=== PATIENT | female | born 1955 | race Caucasian/White ===

== ENCOUNTER 2017-05-28 06:25 | Outpatient (CLI) ==
[2015-01-15 00:17] VITALS: BMI 35.1
--- NOTE | 2017-05-28 10:01 | DI ---
EXAM: Two views of the chest. History: Chronic obstructive pulmonary disease, asthma Comparison: None available. Findings: Heart is mildly enlarged. Patchy bilateral areas of subsegmental atelectasis or infiltrate . No appreciable pleural fluid and no pneumothorax. No acute osseous abnormalities. Impression: 1. Patchy bilateral areas of subsegmental atelectasis versus pneumonia. 2. Mild cardiomegaly
--- NOTE | 2017-05-29 13:24 | ECHO2D ---
Date of Exam: 05/28/17 Ordering Physician: DR. TAM BECKWITH Room #: OP Reason for Echo: COPD, SOB M-Mode Normal Adult Results LV Dimensions Normal Adult Results AoV Opening excursions >1.6 >1.6 LVEDD-base- 3.5-5.8 5.0 Ao root dimensions 2.0-3.7 3.2 LVESD-base- 3.1-4.6 L. Atrium dimensions 1.9-3.8 5.5 Post. Wall thickness 0.8-1.1 1.2 IV septum (thickness) 0.7-1.2 1.2 Post. Wall excursion 0.72-1.3 0.7 Septal motion 0.8 Systolic motion R. Ventricular cavity 1.5-2.0 NORMAL LVEF 60% 40% Paradoxical septal wall motion NORMAL 2-D : HYPOKINETIC LEFT VENTRICLE, VALVES --NORMAL, NO EFFUSION, NO THROMBUS, ENLARGED LEFT ATRIAL CAVITY M-MODE: MV: NORMAL AV: NORMAL TV: NORMAL PV: CHAMBER SIZE: ENLARGED LEFT ATRIAL CAVITY WALL MOTION: HYPOKINETIC LEFT VENTRICLE PERICARDIUM: NORMAL INTERPRETATION: 1. HYPOKINETIC LEFT VENTRICLE WITH EJECTION FRACTION 40% 2. BORDERLINE LEFT VENTRICULAR HYPERTROPHY 3. ENLARGED LEFT ATRIAL CAVITY (5.5 CM) MTDD
== END 2017-05-28 06:26 | disposition home or self-care (01) ==
LOC: CAR 06:25
PROVIDERS: ATTEND Internal Medicine
DX: R06.02 Shortness of breath (principal); J44.9 Chronic obstructive pulmonary disease, unspecified

== ENCOUNTER 2024-02-18 14:54 | Inpatient (IN) ==
[2024-02-18 15:27] VITALS: BMI 38.4
[2024-02-18] MEDS ORDERED: LASIX IVP SCH (15:39)
[2024-02-18 16:11] LABS: BASOPHILS % (AUTO) 0.4 % (0.0-3.0); EOSINOPHILS # (AUTO) 0.1 K/ul (0.0-0.7); EOSINOPHILS % (AUTO) 1.2 % (0.0-7.0); HEMATOCRIT 33.6 % (37.0-47.0); HEMOGLOBIN 10.5 g/dl (12.0-16.0); IMMATURE GRANULOCYTE # (AUTO) 0.1 (0.0-1.0); IMMATURE GRANULOCYTE % (AUTO) 0.8 % (0.0-5.0); LYMPHOCYTES # (AUTO) 0.5 K/uL (0.60-3.4); LYMPHOCYTES % (AUTO) 5.9 (10.0-50.0); MEAN CORPUSCULAR HEMOGLOBIN 32.5 pg (27.0-31.0); MEAN CORPUSCULAR HGB CONC 31.3 (31.8-35.4); MONOCYTES # (AUTO) 0.6 K/uL (0.4-2.0); MONOCYTES % (AUTO) 7.1 (0-10); NEUTROPHILS # (AUTO) 6.6 K/ul (2.0-6.9); NEUTROPHILS % (AUTO) 84.6 % (42.2-75.2); PLATELET COUNT 199 10^3/uL (140-440); RDW COEFFICIENT OF VARIATION 13.2 % (11.6-14.8); RED BLOOD COUNT 3.23 10^6/ul (4.20-5.40); WHITE BLOOD COUNT 7.79 K/ul (4.6-10.2)
[2024-02-18] MEDS ORDERED: NON-FORMULARY MEDICATION (Cetirizine [Allergy Relief (Cetirizine)] 10 mg tablet) PO PRN (16:19)
[2024-02-18 16:25] LABS: ALANINE AMINOTRANSFERASE 17.4 U/L (0-35); ALBUMIN 4.38 g/dL (3.5-5.0); ALKALINE PHOSPHATASE 62.3 U/L (53-141); ASPARTATE AMINO TRANSFERASE 30.3 U/L (14-36); BILIRUBIN,TOTAL 2.25 mg/dL (0.2-1.3); BLOOD UREA NITROGEN 16.2 mg/dL (7-17); CALCIUM 9.27 mg/dL (8.4-10.2); CARBON DIOXIDE 26.4 mmol/L (22-30.0); CHLORIDE 96.5 mmol/L (98-107); CREATININE 0.71 mg/dL (0.60-1.30); GLUCOSE 113.2 mg/dL (74-106); POTASSIUM 4.76 mmol/L (3.5-5.1); TOTAL PROTEIN 8.39 g/dL (6.3-8.2)
[2024-02-18] MEDS ORDERED: LANOXIN PO SCH (16:30)
[2024-02-18 16:32] LABS: PROTHROMBIN TIME 14.2 SEC (9.3-11.0)
[2024-02-18 16:38] LABS: ANISOCYTOSIS 1+ (NOT PRESENT); HYPOCHROMASIA 1+ (NOT PRESENT)
[2024-02-18] MEDS: DECADRON IM SCH (16:45)
[2024-02-18] MEDS: LASIX IVP SCH (16:45)
[2024-02-18] MEDS ORDERED: CLARITIN PO PRN (16:45)
--- NOTE | 2024-02-18 16:47 | DI ---
EXAM: CHEST TWO VIEW, FRONTAL AND LATERAL VIEWS. HISTORY: Dyspnea, chronic obstructive pulmonary disease. COMPARISON: 05/28/2017. FINDINGS: Heart is enlarged. Atherosclerotic calcifications present. Mild indistinctness of the ce ntral pulmonary vasculature appear there is consolidation in both lung bases with blunting of the cos tophrenic angles. Mild interstitial prominence otherwise. No pneumothorax detected. No acute osseo us abnormality is seen. IMPRESSION: Findings most suggestive of pulmonary edema. Pneumonia not excluded..
[2024-02-18] MEDS: ROCEPHIN 1 GM/50 ML D5W 1 GM/50 ML BAG IV SCH (16:54)
[2024-02-18] MEDS: NON-FORMULARY MEDICATION (Tiotropium Bromide [Spiriva Respimat] 1.25 mcg/actuation mist) IH SCH (17:18)
[2024-02-18] MEDS: CARDIZEM PO ONE (17:28)
[2024-02-18 17:30] LABS: BILIRUBIN,URINE Negative (NEGATIVE); CLARITY,URINE Clear (CLEAR); COLOR,URINE Yellow (YELLOW); GLUCOSE, URINE (UA) Negative (NEGATIVE); KETONES,URINE Negative (NEGATIVE); LEUKOCYTE ESTERASE ,URINE 1+ (NEGATIVE); NITRITE,URINE Negative (NEGATIVE); PH,URINE 5.5 (5-9); PROTEIN,URINE Negative (NEGATIVE); URINE, BLOOD Trace-intact (NEGATIVE); UROBILINOGEN,URINE 0.2 (0.2)
[2024-02-18] MEDS: COUMADIN PO SCH (17:32)
[2024-02-18 17:35] LABS: AMORPHOUS SEDIMENT,UR 1+ (NOT PRESENT); BACTERIA,URINE 1+ (NOT PRESENT)
[2024-02-18] MEDS: XANAX PO PRN (20:24)
[2024-02-18] MEDS: BETAPACE PO SCH (20:25)
[2024-02-19] MEDS: PROTONIX PO SCH (05:32)
[2024-02-19 05:38] LABS: BASOPHILS % (AUTO) 0.4 % (0.0-3.0); EOSINOPHILS % (AUTO) 0.2 % (0.0-7.0); HEMATOCRIT 34.4 % (37.0-47.0); HEMOGLOBIN 10.6 g/dl (12.0-16.0); IMMATURE GRANULOCYTE % (AUTO) 0.6 % (0.0-5.0); LYMPHOCYTES # (AUTO) 0.2 K/uL (0.60-3.4); LYMPHOCYTES % (AUTO) 4.5 (10.0-50.0); MEAN CORPUSCULAR HEMOGLOBIN 32.2 pg (27.0-31.0); MEAN CORPUSCULAR HGB CONC 30.8 (31.8-35.4); MEAN CORPUSCULAR VOLUME 104.6 fl (81.0-99.0); MONOCYTES # (AUTO) 0.1 K/uL (0.4-2.0); MONOCYTES % (AUTO) 2.7 (0-10); NEUTROPHILS # (AUTO) 4.7 K/ul (2.0-6.9); NEUTROPHILS % (AUTO) 91.6 % (42.2-75.2); PLATELET COUNT 214 10^3/uL (140-440); RDW COEFFICIENT OF VARIATION 13.1 % (11.6-14.8); RED BLOOD COUNT 3.29 10^6/ul (4.20-5.40); WHITE BLOOD COUNT 5.16 K/ul (4.6-10.2)
[2024-02-19 05:49] LABS: PROTHROMBIN TIME 13.3 SEC (9.3-11.0)
[2024-02-19 05:54] LABS: ALANINE AMINOTRANSFERASE 16.3 U/L (0-35); ALBUMIN 4.24 g/dL (3.5-5.0); ALKALINE PHOSPHATASE 57.6 U/L (53-141); ASPARTATE AMINO TRANSFERASE 24.2 U/L (14-36); BILIRUBIN,TOTAL 1.56 mg/dL (0.2-1.3); BLOOD UREA NITROGEN 17.6 mg/dL (7-17); CALCIUM 8.99 mg/dL (8.4-10.2); CARBON DIOXIDE 29.3 mmol/L (22-30.0); CHLORIDE 94.6 mmol/L (98-107); CREATININE 0.86 mg/dL (0.60-1.30); GLUCOSE 146.5 mg/dL (74-106); POTASSIUM 4.56 mmol/L (3.5-5.1); SODIUM 133.9 mmol/L (134.5-145); TOTAL PROTEIN 7.83 g/dL (6.3-8.2)
[2024-02-19] MEDS: DYAZIDE PO SCH (08:31)
[2024-02-19] MEDS: LANOXIN PO SCH (08:31)
[2024-02-19] MEDS: PHENERGAN WITH CODEINE 6.25/10 MG/5 ML PO PRN (08:34)
--- NOTE | 2024-02-19 09:40 | RS.PTINEVL ---
Subjective Patient information Date of Evaluation: 02/19/24 Date of Arrival on Unit: 02/18/24 Admitted From:: Home Diagnosis: AFib w RVR, BLE edema, falls Usual Living Arrangement: Alone Living Arrangement Comments: lives home alone with dog, has extended family that is supportive Home Environment: House, Stairs (few) (3 ) and Rail Medical History: Hypertension and COPD Medical History Comments:: DJD, alcohol abuse, anemia, LVH, metabolic syndrome LATEX ALLERGY?: No Medications: see chart Subjective Information/ Patient Comments:: pt states that she has had some falls at home. States that she has slipped on her laminate floors and has fallen getting in/out tub. Cousin Cruz in the room and she reports she has a walker and shower chair for pt to use when she goes home. 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 Current Level of Function: Partially Dependent Current Equipment Used at Home: N/A Interventions Objective Patient Orientation: Person, Place, Time and Situation Current Interventions: IV's, Oxygen (2 liters ) and Telemetry Observation: pt with pitting edema BLE Range of Motion ROM Right Upper Extremity AROM: WFL's Left Upper Extremity AROM: WFL's Right Lower Extremity AROM: WFL's Left Lower Extremity AROM: WFL's Muscle Strength Muscle Strength Right Upper Extremity: Mild Weakness (grossly 4/5) Left Upper Extremity: Mild Weakness (grossly 4/5) Right Lower Extremity: Mild Weakness (hip flex 4-/5, knee flex/ext 4/5, ankle DF/PF 4+/5) Left Lower Extremity: Mild Weakness (hip flex 4/5, knee flex/ext 4/5, ankle DF/PF 4+/5) Sensation Sensation Right Upper Extremity: Intact/Normal Left Upper Extremity: Intact/Normal Right Lower Extremity: Intact/Normal Left Lower Extremity: Intact/Normal Palpation Palpation Findings: Tenderness (BLE) Balance Sitting Balance and Reactions Static Sitting Balance: Good Dynamic Sitting Balance: Good Standing Balance and Reactions Static Standing Balance: Fair (fair-) Dynamic Standing Balance: Poor Functional Mobility Bed Mobility Comments:: pt sitting up in chair Transfers Sit to Stand: CGA Stand to Sit: CGA Safety Awareness Safety Awareness: Fair JOVANA INDEX SCORE: n/a Ambulation Ambulation Assistive Device Used: Rolling Walker Orthotic/Prosthetic Device: No Distance: 50ft Assistance needed with Ambulation: CGA and 1 person assist Quality of Ambulation: pt amb with O2 2 liters Gait Deviations: Wide Based gait, Forward posture and Short stride Ambulation Comments: pt requires cues for walker placement. Factors Affecting Ambulation: Decreased Balance, Breathing/O2 Saturation, Weakness, Decreased Safety and Limited Endurance Treatment time Units charged Gait trainin Time with patient Length of Evaluation: 18 Total treatment time: 31 Patient Education Education Patient Education: Activity Modification and Education of Plan of Care Teaching Recipient: Patient and Family Teaching Methods: Discussion Comments: Discussion with pt regarding POC as well as calling for help when getting up. Advised pt that due to her hx of falls and weakness we did not want her to get up on her own. Assessment Assessment Problem List:: Decreased level of function, Requires training/education, Decreased safety/Risk of falls and Weakness Rehab Potential: Good Further Therapy Indicated?: Yes Candidate for Swing Bed for Therapy Services?: pt may be too high level for swing bed for therapy. Evaluation Complexity: HISTORY: Medium, EXAM OF BODY SYSTEMS: Medium, CLINICAL PRESENTATION: Medium and CLINICAL DECISION MAKING: Medium Patient's Goal(s): Return home and get stronger Short Term Goals GOAL #1: pt demonstrate rolling and scooting to edge of bed independently. Goal to be met by: 02/21/24 GOAL #2: Transfer sup to/from sit SBA Goal to be met by: 02/21/24 GOAL #3: Transfer sit to/from stand SBA Goal to be met by: 02/21/24 GOAL #4: pt amb 100ft with rwx with O2 CGA no LOB Goal to be met by: 02/21/24 GOAL #5: Improve BLE strength 4+/5 Goal to be met by: 02/21/24 Long-Term Goals GOAL #1: Transfer sup to/from sit to/from stand independently Goal to be met by: 02/23/24 GOAL #2: pt amb with rwx functional household distances SBA to independent. Goal to be met by: 02/23/24 GOAL #3: Ascend/descend 3 steps w HR CGA Goal to be met by: 02/23/24 Plan Plan of Care: Therapeutic EX and Therapeutic Activity Other:: gait training Frequency of Treatment: 1-2 X day, as tolerated Duration of Treatment: 4 days Anticipated Discharge Destination: Home Treatment Diagnosis (ICD 10 Codes): impaired balance R 26.81 gait difficulty R26.2 weakness M62.81 Has the Physician been added for Co-signature?: Yes
--- NOTE | 2024-02-19 09:48 | HP ---
DATE OF SERVICE: 02/18/24 REASON FOR HOSPITALIZATION/HISTORY OF PRESENT ILLNESS: Shortness of breath, legs swollen, very weak and hard to walk. PAST MEDICAL HISTORY: Anemia B12 deficiency Chronic anticoagulation(Coumadin) DJD Spine LVH Obesity Asthma-Dr. See Hyperglycemia COPD Metabolic syndrome Dyslipidemia Atrial fibrillation Hypertension REVIEW OF SYSTEMS: CONSTITUTIONAL: No fever, Fatigue. HEENT: No sinus drainage, no sore throat. RESPIRATORY: Cough, no congestion. CARDIOVASCULAR: No atypical chest pain for coronary artery disease. No angina, palpitations. Shortness of breath. CHF Symptoms-orthopnea. GASTROINTESTINAL: No melena or abdominal pain. No GERD. GENITOURINARY: No hematuria, no prostatism, no polyuria. MEDICAL EDUCATION SPECIALIST: No blackout, no dizziness, no headache, no double vision. GAIT: Unsteady. MUSCULOSKELETAL: No osteoarthritis pain, no joint swelling. ENDOCRINE: No weight loss, Weight gain. SKIN: Not dry, no rash. PSYCHIATRIC: Not anxious, no depression, no suicidal thoughts, no homicidal thoughts. SOCIAL HISTORY: Marital Status: . Alcohol Usage: No. Tobacco Usage: No. Children: 1. Occupation: Retired. FAMILY HISTORY: Father Mother -[place] MEDICATIONS: Albuterol Alprazolam 0.5mg PO twice daily Cetirizine 10mg PO daily Digoxin 125mcg PO daily Fluticasone one inhalation every 24 hours Montelukast 10mg PO daily Pantoprazole 40mg PO daily Promethazine 6.25mg-codeine 10mg/5ML syrup 5ml orally every 4-6 hours as needed for cough Sotalol 80mg PO twice daily Tezepelumab-ekko 210mg/1.91ml 210mg subcutaneously every 4 weeks Tiotropium bromide 1.25mcg two puffs inhaled every 24 hours Triamterene 37.5-hydrochlorothiazide 25mg PO daily every morning Warfarin 5mg PO daily as directed. ALLERGIES: Ampicillin Emycin Pravachol PHYSICAL EXAMINATION: V/S: Pulse 130, blood pressure 132/80, temperature 98%, O2 saturation 94%. GENERAL APPEARANCE: Oriented times three. Pallor. Dry mucous membranes HEENT: Normal. NECK: No JVP, no bruits. RESPIRATORY: Decreased breath sounds. Creps at bases bilateral. CARDIOVASCULAR: S1, S2, no S3, Irregular and tachy. No cyanosis, clubbing. No ascites. I/IV murmur. GI/ABDOMEN: No tenderness. Bowel sounds are active. EXTREMITIES: +2 bilateral lower extremity edema, pulses +1, equal. MEDICAL EDUCATION SPECIALIST: Deep tendon reflexes, sensory, motor and gait all normal. ASSESSMENT: 1. Shortness of breath 2. Leg edema 3. Uncontrolled atrial fibrillation 4. Anemia 5. B12 deficiency 6. Chronic anticoagulation(Coumadin) 7. DJD Spine 8. LVH 9. Obesity 10.Asthma-Dr. See 11.Hyperglycemia 12.COPD 13.Metabolic syndrome 14.Dyslipidemia 15.Atrial fibrillation 16.Hypertension PLAN: 1. Routine telemetry orders 2. CBC and CMP now and daily 3. INR now and daily 4. BNP now 5. Daily weights 6. I/O monitoring 7. O2 PRN via nasal canula 8. 2D echo 9. Lasix 40mg IV daily times two days 10.U/A 11.4mg Decadron IM today and tomorrow 12. Rocephin 1gram IV daily TIME SPENT: More than 75 minutes. MTDD
[2024-02-19] MEDS: COUMADIN PO ONE (16:43)
[2024-02-19] MEDS: SINGULAIR PO SCH (16:46)
[2024-02-19] MEDS: NON-FORMULARY MEDICATION (Albuterol-Budesonide [Airsupra] 90-80 mcg/actuation HFA aerosol IH PRN (16:58)
[2024-02-20 05:42] LABS: BASOPHILS % (AUTO) 0.3 % (0.0-3.0); EOSINOPHILS # (AUTO) 0.1 K/ul (0.0-0.7); EOSINOPHILS % (AUTO) 1.2 % (0.0-7.0); HEMATOCRIT 32.1 % (37.0-47.0); HEMOGLOBIN 9.9 g/dl (12.0-16.0); IMMATURE GRANULOCYTE # (AUTO) 0.1 (0.0-1.0); IMMATURE GRANULOCYTE % (AUTO) 0.9 % (0.0-5.0); LYMPHOCYTES # (AUTO) 0.3 K/uL (0.60-3.4); LYMPHOCYTES % (AUTO) 3.5 (10.0-50.0); MEAN CORPUSCULAR HEMOGLOBIN 32.4 pg (27.0-31.0); MEAN CORPUSCULAR HGB CONC 30.8 (31.8-35.4); MEAN CORPUSCULAR VOLUME 104.9 fl (81.0-99.0); MONOCYTES # (AUTO) 0.6 K/uL (0.4-2.0); MONOCYTES % (AUTO) 7.6 (0-10); NEUTROPHILS # (AUTO) 6.4 K/ul (2.0-6.9); NEUTROPHILS % (AUTO) 86.5 % (42.2-75.2); PLATELET COUNT 203 10^3/uL (140-440); RDW COEFFICIENT OF VARIATION 13.2 % (11.6-14.8); RED BLOOD COUNT 3.06 10^6/ul (4.20-5.40)
[2024-02-20] MEDS: LASIX IVP SCH (05:54)
[2024-02-20 06:05] LABS: ALBUMIN 3.93 g/dL (3.5-5.0); ALKALINE PHOSPHATASE 51.2 U/L (53-141); ASPARTATE AMINO TRANSFERASE 21.3 U/L (14-36); BILIRUBIN,TOTAL 0.91 mg/dL (0.2-1.3); BLOOD UREA NITROGEN 27.9 mg/dL (7-17); CALCIUM 8.76 mg/dL (8.4-10.2); CARBON DIOXIDE 29.1 mmol/L (22-30.0); CHLORIDE 94.1 mmol/L (98-107); CREATININE 1.14 mg/dL (0.60-1.30); GLUCOSE 145.7 mg/dL (74-106); POTASSIUM 4.37 mmol/L (3.5-5.1); SODIUM 133.5 mmol/L (134.5-145); TOTAL PROTEIN 7.32 g/dL (6.3-8.2)
[2024-02-20] MEDS: COUMADIN PO ONE ×2 (13:13→17:07)
[2024-02-20] MEDS ORDERED: COUMADIN PO ONE (17:00)
[2024-02-20] MEDS: COUMADIN PO SCH (17:07)
[2024-02-21 05:14] VITALS: BP 128/71; RESP 18; TEMP 97.9
[2024-02-21] MEDS: OMNICEF PO SCH (08:26)
[2024-02-21 08:27] VITALS: PULSE 73
--- NOTE | 2024-02-22 10:10 | ECHO2D ---
Date of Exam: 02/19/2024 Ordering Physician: DR. TAM BECKWITH Room #: 120 Reason for Echo: CHF, SOB, HTN, LVH, A-FIB, DYSLIPIDEMIA, COPD, ASTHMA, ANEMIA, EDEMA M-Mode Normal Adult Results LV Dimensions Normal Adult Results AoV Opening excursions >1.6 >1.6 LVEDD-base- 3.5-5.8 5.4 Ao root dimensions 2.0-3.7 2.9 LVESD-base- 3.1-4.6 L. Atrium dimensions 1.9-3.8 6.5 Post. Wall thickness 0.8-1.1 1.4 IV septum (thickness) 0.7-1.2 1.4 Post. Wall excursion 0.72-1.3 NORMAL Septal motion 0.8 Systolic motion R. Ventricular cavity 1.5-2.0 NORMAL LVEF 60% 52% Paradoxical septal wall motion NORMAL 2-D : 2-D M Mode Echocardiogram was performed using apical four chamber and left parasternal long and short axis views. Mitral, tricuspid and aortic valves appear to be normal. Contractility of the left ventricle seems to be normal, so is the cavity size. Enlarged Left atrial cavity size. Aortic root appears to be normal. There is no pericardial effusion. There is no thrombus noted in the left ventricle or left atrial cavity. M-MODE: MV: NORMAL AV: NORMAL TV: NORMAL PV: CHAMBER SIZE: ENLARGED LEFT ATRIAL CAVITY WALL MOTION: NORMAL PERICARDIUM: NORMAL INTERPRETATION: 1. LEFT VENTRICLE HYPERTROPHY WITH STIFF LEFT VENTRICLE 2. MARKEDLY ENLARGED LEFT ATRIAL CAVITY--NO THROMBUS 3. NEAR NORMAL LEFT VENTRICLE EJECTION FRACTION--52% 4. VALVES--NORMAL MTDD
--- NOTE | 2024-02-22 14:23 | PN ---
DATE OF SERVICE: 02/19/24 REASON FOR HOSPITALIZATION: Weight gain with fluid overload with congestive heart failure and shortness of breath and inability to walk. SUBJECTIVE: This morning the patient is feeling a lot better. She is able to talk without stopping. She says that her appetite seems to have improved. She is able to walk now according to her. REVIEW OF SYSTEMS: CONSTITUTIONAL: No night sweats. No fatigue, malaise, lethargy. No fever or chills. The patient rested very well according to her. HEENT: Eyes: No visual changes. No eye pain. No eye discharge. ENT: No runny nose. No epistaxis. No sinus pain. No sore throat. No odynophagia. No congestion. RESPIRATORY: No cough, no congestion. No hemoptysis. Shortness of breath on exertion. CARDIOVASCULAR: No angina symptoms. No CHF symptoms. No atypical chest pain for CAD. No palpitations. No PND. No orthopnea. GASTROINTESTINAL: No abdominal pain. No nausea or vomiting. No diarrhea or constipation. No hematemesis. No hematochezia. GENITOURINARY: No urgency. No frequency. No dysuria. No hematuria. No obstructive symptoms. No discharge. No pain. No significant abnormal bleeding.Appetite seems to have improved. Breathing is a lot better. MUSCULOSKELETAL: No musculoskeletal pain; no joint swelling. NEUROLOGICAL: No headache. No neck pain. No syncope. No seizures. No dizziness. PSYCHIATRIC: Not anxious. No depression. No suicidal thoughts. No homicidal thoughts. SKIN: No rash. No lesions. No wounds. ENDOCRINE: No unexplained weight loss. No weight gain. HEMATOLOGIC/LYMPHATIC: No anemia. No purpura. No petechiae. No prolonged or excessive bleeding. No palpable lymph nodes. PHYSICAL EXAMINATION: GENERAL: The patient is oriented to time, place and person. VITAL SIGNS: Temperature 97, pulse 75, respiratory rate 16, blood pressure 123/65 and pulse ox 98% on room air. HEENT: Head normocephalic, atraumatic. Eyes: Extraocular muscles are intact. Pupils are equal, round and reactive to light and accommodation. Ears: No lesions. Nose appeared normal. Throat: No exudate or erythema. NECK: Supple. No JVD, no carotid bruit. No lymphadenopathy or thyromegaly. LUNGS: Few crepitation at the bases. Good air entry. Clear to auscultation. Percussion note normal. Chest symmetrical. HEART: S1, S2, no S3. No murmurs. The rate is 90 per minute. No cyanosis or clubbing. No ascites. Pulses: Dorsalis pedis and posterior tibial pulses +1 to +2 bilaterally. ABDOMEN: Soft. Nontender. Bowel sounds active. No CVA tenderness. No mass felt. EXTREMITIES: +3 almost +4 pitting edema. Full range of motion of all extremities, equal. The patient was slightly packed with both calf muscles able to put little dent with the pressure on both lower extremity. NEUROLOGIC: No focal deficit. Cranial nerves II through XII are grossly intact. No headache. No double vision. SKIN: Not dry. Intact. Turgor - normal. LYMPHATIC: No palpable lymph nodes/no lymphedema. MUSCULOSKELETAL: Normal joints with no swelling. Muscle tone is normal. LABS: Hgb 10.6, hct 34, WBC 5,100 normal differential, creatinine 0.8, BUN 17, potassium 4.5. INR 1.4, PRO BNP 2,830 yesterday. Obviously the patient has lost a lot of weight but as expected the patient weighs the same. ASSESSMENT: 1. Congestive heart failure/ Pulmonary edema seems to have resolved , clinically 2. Excessive fluid retention seems to be subsiding 3. Atrial fibrillation with now normal ventricular response at right 4. Severe bronchial asthma followed park interpretive specialist 5. Hypertension 6. Morbid obesity 7. Hyperglycemia 8. Anxiety Syndrome. PLAN: 1. Extra dose of Coumadin 5mg, get an INR of 2 2. Continue to elevate the legs 3. Continue IV Lasix 4. PRO BNP tomorrow 5. Give an extra dose of Lanoxin today 0.125mg 6. Daily CBC and CMP 7. Education about CHF carried to the patient 8. Advised to cut down on salt intake 9. Advised to keep the legs up at night, now one for lifetime. 10.Advised to continue to take her medication regularly. Few weeks ago the patient was seen with the leg swelling, on Lasix but she had not taken it because she is incontinent of urine so she stopped taking all her water pills. 11.Education carried out about CHF in detail. PROGNOSIS: Guarded. TIME SPENT: More than 35 minutes. Plan and coordination of the patient's care discussed in the presence of nurse. STAN
--- NOTE | 2024-02-29 08:31 | DS ---
DATE OF SERVICE: 02/21/24 FINAL DIAGNOSIS: 1. Congestive heart failure with pulmonary edema 2. Atrial fibrillation with rapid ventricular response 3. Acute bronchitis 4. Severe chronic lung disease with severe bronchial asthma 5. Hypertension 6. Morbid obesity 7. Chronic anemia 8. Generalized anxiety 9. Noncompliance MEDICATIONS AT DISCHARGE: Lasix 40mg PO daily K-Tab 20meq PO daily Continue Coumadin 5mg PO daily as before Digoxin 0.125mg PO as before Sotalol 80mg PO twice a day Pantoprazole 40mg PO QAM Continue Inhalers PO as before Spiriva Respimat inhaler as before Tezspire 210mg SUBCUT four weekly by license and permit specialist Xanax 0.5mg as needed BID PRN Omnicef 300mg PO BID for five days #14 Montelukast 10mg as before Loratadine 10mg PO PRN Airsupra inhaler as instructed DISCONTINUED MEDICATIONS: Discontinue Dyazide LABS: Hgb 9.9, hct 32, WBC 7,400 normal differential, creatinine 1.1, BUN 27, potassium 4.3, INR 1.47 on 02/20/24 at that time the patient was given extra dose of Coumadin, PRO BNP on 02/18/24 2,830 and repeat was ordered. Digoxin level was low and was given extra dose of Lanoxin while she was in the hospital to control the ventricular rate so an extra dose was given. Extra dose of Coumadin was given to increase the INR up to 2 to 2.5. HOSPITAL COURSE: 68 year old white female was hospitalized with congestive heart failure and pulmonary edema, asthma with bronchitis type of symptoms for a few weeks. The patient is noncompliant. Had a long discussion and agreed to be admitted. She was given IV Lasix and legs were elevated. Rate was controlled with extra dose of Lanoxin and dose of Cardizem. The patient' condition improved overnight and lost a lot of fluids. She was able to walk, talk and eat. Overall condition improved to the point where now she is willing to go through physical therapy. Taking a lot of interest in her overall health care. Medications were changed; Dyazide was discontinued. She was given Lasix and Potassium. Advised to elevate the legs at night time for lifetime when she goes to sleep. Advised to cut down on salt into. Education about CHF carried out. Advised to take all her medication on regular basis. Any weight gain of more than 2-3 pounds advised to take an extra dose of Lasix. Advised to followup with . Echo showed fraction of 50%, Stiff left ventricle, LVH, markedly enlarged LA cavity noted with no thrombus or thrombi at the valvular structures were normal. Systolic blood pressure during the stay in the hospital was noted to be 90-110 depending upon her systolic blood pressure. Other decision would be made regarding unloading agents or medication like Entresto and for weight loss discussed. The patient is convinced that losing 50-20 pounds would help her a lot in order to take care of her lung problems besides her mobility. She has agreed for physical therapy. CONDITION: Stable 02/18/24: Extensive 02/19/24: Extensive 02/20/24: Extensive 02/21/24: Discharge Extensive. ADDENDUM: Discharge medications: Zaroxolyn 2.5mg one a day for three days starting tomorrow. The patient's labs were not drawn on the day of discharge. The patient was advised to restrict the fluid intake. The patient is going to see Nurse Practitioner on on followup. Meantime if any problems go to the emergency room. TIME SPENT: 70 minutes STAN
--- NOTE | 2024-02-29 08:57 | PN ---
DATE OF SERVICE: 02/21/24 DISCHARGE NOTE SUBJECTIVE: 68 year old white female hospitalized with congestive heart failure, pulmonary edema, massive fluid retention, shortness of breath, difficulty to walk and talk, eat. The patient was seen in the office and had declined to go to the emergency room. The patient declined to go to any other hospital, declared to [facility] only if I put her in the hospital under me. REVIEW OF SYSTEMS: CONSTITUTIONAL: No night sweats. No fatigue, malaise, lethargy. No fever or chills. HEENT: Eyes: No visual changes. No eye pain. No eye discharge. ENT: No runny nose. No epistaxis. No sinus pain. No sore throat. No odynophagia. No congestion. RESPIRATORY: No cough, no congestion. No hemoptysis. Less shortness of breath. Able to walk now on her own. Able to talk CARDIOVASCULAR: No angina symptoms. No CHF symptoms. No atypical chest pain for CAD. No palpitations. No PND. No orthopnea. GASTROINTESTINAL: No abdominal pain. No nausea or vomiting. No diarrhea or constipation. No hematemesis. No hematochezia. GENITOURINARY: No urgency. No frequency. No dysuria. No hematuria. No obstructive symptoms. No discharge. No pain. No significant abnormal bleeding. MUSCULOSKELETAL: No musculoskeletal pain; no joint swelling. NEUROLOGICAL: No headache. No neck pain. No syncope. No seizures. No dizziness. PSYCHIATRIC: Not anxious. No depression. No suicidal thoughts. No homicidal thoughts. SKIN: No rash. No lesions. No wounds. ENDOCRINE: No unexplained weight loss. No weight gain. HEMATOLOGIC/LYMPHATIC: No anemia. No purpura. No petechiae. No prolonged or excessive bleeding. No palpable lymph nodes. PHYSICAL EXAMINATION: GENERAL: The patient is oriented to time, place and person. VITAL SIGNS: Temperature 98, pulse 80, respiratory rate 15, blood pressure 110/70, pulse ox 98% on room air. HEENT: Head normocephalic, atraumatic. Eyes: Extraocular muscles are intact. Pupils are equal, round and reactive to light and accommodation. Ears: No lesions. Nose appeared normal. Throat: No exudate or erythema. NECK: Supple. No JVD, no carotid bruit. No lymphadenopathy or thyromegaly. LUNGS: Decreased breath sounds, good air entry. Clear to auscultation. Percussion note normal. Chest symmetrical. HEART: S1, S2, no S3. 80 per minute. Atypical rate. No murmurs. No cyanosis or clubbing. No ascites. Pulses: Dorsalis pedis and posterior tibial pulses +1 to +2 bilaterally. ABDOMEN: Soft. Nontender. Bowel sounds active. No CVA tenderness. No mass felt. EXTREMITIES: +3 pitting edema fluid. When the patient was admitted we were unable to put a dent on the leg edema. It was that skin feels soft with +3 pitting edema. Full range of motion of all extremities, equal. NEUROLOGIC: No focal deficit. Cranial nerves II through XII are grossly intact. No headache. No double vision. SKIN: Not dry. Intact. Turgor - normal. LYMPHATIC: No palpable lymph nodes/no lymphedema. MUSCULOSKELETAL: Normal joints with no swelling. Muscle tone is normal. ASSESSMENT: 1. CHF seems to have clinically resolved, massive leg edema seems to have subsided 2. Atrial fibrillation with rapid ventricular response seems to have control 3. Asthmatic bronchitis under control PLAN: 1. Discontinue Decadron before discharge 2. We will put the patient on Lasix 40mg PO QAM 3. K-Tab 10/20meq PO daily 4. Advised to elevate the legs 5. Advised to continue the medication as before, Don't take Dyazide anymore 6. Continue Omnicef for 5 or more days. 7. Advised to cut down on salt intake 8. Education about CHF carried out 9. We will see her back in 5 days. TIME SPENT: More than 35 minutes. Plan and coordination of the patient's care discussed in the presence of nurse. STAN
--- NOTE | 2024-02-29 09:29 | PN ---
DATE OF SERVICE: 02/20/24 SUBJECTIVE: 68 year old white female hospitalized with congestive heart failure with pulmonary edema and massive fluid retention. The patient's condition has improved a lot. She is feeling a lot better, now able to walk and now she wants to go and do physical therapy. She is motivated. REVIEW OF SYSTEMS: CONSTITUTIONAL: No night sweats. No fatigue, malaise, lethargy. No fever or chills. HEENT: Eyes: No visual changes. No eye pain. No eye discharge. ENT: No runny nose. No epistaxis. No sinus pain. No sore throat. No odynophagia. No congestion. RESPIRATORY: No cough, no congestion. No hemoptysis. No shortness of breath. Talking without any problems. CARDIOVASCULAR: No angina symptoms. No CHF symptoms. No atypical chest pain for CAD. No palpitations. No PND. No orthopnea. GASTROINTESTINAL: No abdominal pain. No nausea or vomiting. No diarrhea or constipation. No hematemesis. No hematochezia. GENITOURINARY: No urgency. No frequency. No dysuria. No hematuria. No obstructive symptoms. No discharge. No pain. No significant abnormal bleeding. MUSCULOSKELETAL: No musculoskeletal pain; no joint swelling. Walking, she is sitting up at present time eating her breakfast. NEUROLOGICAL: No headache. No neck pain. No syncope. No seizures. No dizziness. PSYCHIATRIC: Not anxious. No depression. No suicidal thoughts. No homicidal thoughts. SKIN: No rash. No lesions. No wounds. ENDOCRINE: No unexplained weight loss. No weight gain. Appetite has improved. HEMATOLOGIC/LYMPHATIC: No anemia. No purpura. No petechiae. No prolonged or excessive bleeding. No palpable lymph nodes. PHYSICAL EXAMINATION: GENERAL: The patient is oriented to time, place and person. VITAL SIGNS: Temperature 97.1, pulse 78, respiratory rate 18, blood pressure 102/57 and pulse ox 98% on room air. HEENT: Head normocephalic, atraumatic. Eyes: Extraocular muscles are intact. Pupils are equal, round and reactive to light and accommodation. Ears: No lesions. Nose appeared normal. Throat: No exudate or erythema. NECK: Supple. No JVD, no carotid bruit. No lymphadenopathy or thyromegaly. LUNGS: Good air entry. Very few crepitations. Clear to auscultation. Percussion note normal. Chest symmetrical. HEART: S1, S2, no S3. No murmurs. Rate is 75 per minute. No cyanosis or clubbing. No ascites. Pulses: Dorsalis pedis and posterior tibial pulses +1 to +2 bilaterally. ABDOMEN: Soft. Nontender. Bowel sounds active. No CVA tenderness. No mass felt. EXTREMITIES: +3 pitting edema. Full range of motion of all extremities, equal. The patient's swelling of the legs is much less than what is was before. NEUROLOGIC: No focal deficit. Cranial nerves II through XII are grossly intact. No headache. No double vision. SKIN: Not dry. Intact. Turgor - normal. LYMPHATIC: No palpable lymph nodes/no lymphedema. MUSCULOSKELETAL: Normal joints with no swelling. Muscle tone is normal. LABS: Hgb 9.9, hct 32, WBC 7,400 normal differential, creatinine 1.1, BUN 27, potassium 4.3 was 1.3 yesterday given 1.47 today. ASSESSMENT: 1. CHF seems to be resolving 2. Fluid retention resolved 3. Atrial fibrillation with normal ventricular response 4. Bronchial asthma seems to be stable 5. Bronchitis, mild which is being treated with Rocephin and now with Omnicef 6. INR is 1.47 will give extra dose of 5mg Coumadin 7. Advised to continue all her medications as before, we may have to add Lasix and Potassium. She was explained about this. 8. The patient's echocardiogram was done which showed LVH with stiff left ventricle, normal LV size, ejection fraction 50%. Markedly enlarged LA cavity. No thrombus or thrombi noted. Valves normal PLAN: 1. Lasix and Potassium supplements may need unloading agent depending upon the patient's systolic blood pressure. We will add unloading agent if needed 2. Entresto maybe another choice but at present time the main goal is to get rid of as much fluid as we could. 3. The patient advised about the diet and advised about the CHF. The patient has severe bronchial asthma with chronic lung disease CONDITION: Stable. TIME SPENT: More than 35 minutes. Plan and coordination of the patient's care discussed in the presence of nurse. STAN
== END 2024-02-21 14:29 | disposition home or self-care (01) | DRG 189 ==
LOC: MEDSURG B 14:54
PROVIDERS: ADMIT Internal Medicine; ATTEND Internal Medicine

== ENCOUNTER 2025-01-17 15:01 | Inpatient (IN) ==
--- NOTE | 2025-01-17 16:38 | ED.PDOC ---
General [facility] ED Provider: Dr. ANAHI KELLER MD Chief Complaint: Weakness Stated Complaint: Patient is a 69-year-old female that was sent over from her primary care office for weakness. Per her primary care nurse practitioner the patient could not get out of her car to even come in to her appointment at the primary care office. She stated that she has been like this for several days. The primary care provider escorted the patient over here and stated that the patient appeared to be dehydrated. She stated that she does have a history of CHF and recently had an echo. Looking back at the patient's echo it appears patient's EF is 52%. Patient also is known to have lower extremity edema due to fluid overload as she does not take her Lasix as prescribed at times. Patient denies any chest pain, shortness of breath, nausea, vomiting, diarrhea, dizziness, syncope, or any other acute symptoms at the current time. Patient vital signs are stable. Patient's GCS is 15. Time Seen by Provider: 01/17/25 15:03 Mode of Arrival: Wheelchair Information Source: Patient and Nurse (Patient's primary care provider - nurse practitioner) Exam Limitations: No limitations Primary Care Provider: ANNA CRANE APRN Nursing and Triage Documentation Reviewed and Agree: Yes Opioid Naive vs. Tolerant What is Opioid Naive?: *Opioid Naive implies the patient is not already taking opioids or not chronically receiving opioids on a daily basis. *PRN dosing is not "usually" associated with tolerance. *Patients are at higher risk of over-sedation and aspiration. What is Opioid Tolerant?: *Opioid Tolerance implies less than the expected response to an opioid. *Acquired tolerance is defined by the patient taking 60mg of oral morphine daily (or equianalgesic dose of another opioid) for 1 week or more. *Often associated with chronic pain. *May take more than usual dose to achieve desired pain control. Review of Systems Review Of Systems Constitutional: Reports No symptoms and Weakness All Other Systems: Reviewed and Negative [facility] Medical History Cardiac murmur due to mitral valve disorder I34.0 - Nonrheumatic mitral (valve) insufficiency (ICD-10) Asthmatic bronchitis Breo, singular J45.909 - Unspecified asthma, uncomplicated (ICD-10) Cataract right; DR SAUNDERS H26.9 - Unspecified cataract (ICD-10) GI bleed K92.2 - Gastrointestinal hemorrhage, unspecified (ICD-10) Family History Mother No problems noted. FATHER Cancer Mother Cancer Asthma MATERNAL GRANDMOTHER CVA (cerebral vascular accident) MATERNAL GRANDFATHER Cancer Social History Smoking and tobacco status: Former smoker Tobacco: How many years used: 2 How long ago did patient quit smoking: quit 1978 Alcohol intake: current Substance use type: does not use Special myke needs: No Agree to transfusion: Yes Adopted: No Caregiver/support person: No Foster care: No Household members: none Housing: house Marital status: D Lives independently: Yes Daycare: no daycare Number of children: 1 service: No FDC: No Current occupational status: retired History of recent travel: No Do you think of yourself as: straight/heterosexual Current gender identity: female Seatbelt use: always Drives intoxicated or rides with intoxicated auto driver: No Current diet type/program: regular Water heater temperature set < 120 degrees: Yes Working smoke detector in home: Yes Fire extinguisher in home: Yes Carbon monoxide detector in home: Yes Female Reproductive History Menstrual Hx Hysterectomy: Yes Hx Tubal Ligation: No Physical Exam Physical Exam Appearance: Reports Well-appearing, No pain distress and Well-nourished Ill-appearing: None Pain Distress: None Eyes: Reports ZAHRAA, EOMI and Conjunctiva clear ENT: Reports Nose normal and Oropharynx normal Neck: Supple Respiratory: Reports Airway patent, Breath sounds clear, Breath sounds equal and Respirations nonlabored Cardiovascular: Reports RRR and Pulses normal GI/: Reports Soft, Nontender and Bowel sounds normal Musculoskeletal: Reports Normal strength, ROM intact and Edema (+2 pitting edema bilaterally lower extremities.) Skin: Reports Warm, Dry and Normal color Neurological: Reports Sensation intact, Motor intact, Alert and Oriented Psychiatric: Reports Affect appropriate and Mood appropriate Physician Progress Note Physician Progress Note: Patient is a 69-year-old female that was sent over from her primary care office for weakness. Per her primary care nurse practitioner the patient could not get out of her car to even come in to her appointment at the primary care office. She stated that she has been like this for several days. The primary care provider escorted the patient over here and stated that the patient appeared to be dehydrated. She stated that she does have a history of CHF and recently had an echo. Looking back at the patient's echo it appears patient's EF is 52%. Patient did admit to a dry cough for the past 2 days. Patient also is known to have lower extremity edema due to fluid overload as she does not take her Lasix as prescribed at times. Patient denies any chest pain, shortness of breath, nausea, vomiting, diarrhea, dizziness, syncope, or any other acute symptoms at the current time. Patient vital signs are stable. Patient's GCS is 15. - Due to patient's weakness will order chest x-ray, EKG, troponin, BNP, and baseline labs. - Will give the patient gentle hydration with IV lactated Ringer's 250 mL/h. - EKG shows atrial fibrillation with a ventricular rate of 65 bpm. An incomplete left bundle branch block is noted. LVH noted. Nonspecific ST and T wave abnormality noted. No acute STEMI. EKG interpreted by ER physician. - Chest x-ray shows a right lower lobe consolidation. This was interpreted by the ER physician. - Right lower lobe consolidation consistent with patient not taking her Lasix as directed. Will give IV Lasix 60 mg once for diuresis. - Due to the patient's right lower lobe consolidation will also treat for pneumonia as patient has a 13,000 white count. Will give the patient IV ceftriaxone 1 g for commune acquired pneumonia. Will give the patient IV methylprednisolone 125 mg for inflammation. - Will contact hospitalist for potential observation in the hospital. ([id number]) spoke to the hospitalist Boyd Ramos NP who is agreed to admit this patient for observation for Pneumonia, CHF exacerbation, hypokalemia, A-fib. I discussed treatment and current findings with the hospitalist. Patient's vital signs are stable at time of hospital acceptance. Course Course 01/17/25 16:47 01/17/25 16:47 Orders, Labs, Meds: Lab Review 01/17/25 16:47 WBC 13.79 H RBC 3.40 L Hgb 10.2 L Hct 32.8 L MCV 96.5 MCH 30.0 MCHC 31.1 L RDW Coeff of Devora 16.4 H Plt Count 216 Immature Gran % (Auto) 0.4 Neut % (Auto) 38.4 L Lymph % (Auto) 6.6 L [place] % (Auto) 7.0 Eos % (Auto) 46.9 H Baso % (Auto) 0.7 Neut # (Auto) 5.3 Lymph # (Auto) 0.9 [place] # (Auto) 1.0 Eos # (Auto) 6.5 H Baso # (Auto) 0.1 Immature Gran # (Auto) 0.1 Sodium 135.3 Potassium 3.47 L Chloride 99.7 Carbon Dioxide 27.9 Anion Gap 11.17 BUN 32.0 H Creatinine 1.56 H Estimated GFR (MDRD) 33.00 BUN/Creatinine Ratio 20.51 Glucose 102.0 Calcium 8.82 Magnesium 1.70 Total Bilirubin 1.55 H AST 20.3 ALT 9.4 Alkaline Phosphatase 84.6 Troponin I 0.013 NT-Pro-B Natriuret Pep 8400 H Total Protein 7.53 Albumin 3.37 L Globulin 4.16 Albumin/Globulin Ratio 0.81 Orders Category Date Time Status EKG-(ED & IP/OBS ONLY) Stat CARDIO 01/17/25 16:34 Completed IV [ED IV/MEDIPORT/POWERPORT] .ONCE EMERGENCY 01/17/25 16:34 Active CBC W/ AUTO DIFF Stat LAB 01/17/25 16:47 Completed CMP [COMPREHENSIVE METABOLIC PANEL] Stat LAB 01/17/25 16:47 Completed MAGNESIUM Stat LAB 01/17/25 16:47 Completed NT-PROBNP(ED) Stat LAB 01/17/25 16:47 Completed TROPONIN I Stat LAB 01/17/25 16:47 Completed URINALYSIS C & S IF INDICATED Stat LAB 01/17/25 16:35 Uncollected 0.9 % Sodium Chloride [Saline Flush] Meds 01/17/25 16:34 Active 1 syr IVF PRN PRN Ceftriaxone 1 gm Vial [Rocephin 1 gm Vial] Meds 01/17/25 17:23 Discontinued 1 gm IVP ONCE ONE Furosemide [Lasix] Meds 01/17/25 17:17 Discontinued 60 mg IVP ONCE STA Methylprednisolone Sod Succ/Pf [Solu-Medrol 125 mg] Meds 01/17/25 17:23 Discontinued 125 mg IVP ONCE ONE Ringers Lactated Solution [Lactated Ringers] 1,000 ml Meds 01/17/25 16:38 Active IV 250 mls/hr CHEST, 1V AP ONLY Stat RADS 01/17/25 16:34 Taken Medications Generic Name Dose Route Start Last Admin Trade Name Freq PRN Reason Stop Dose Admin Lactated Ringer's 1,000 mls @ 250 mls/hr 01/17/25 16:38 Lactated Ringers IV 01/17/25 20:37 .Q4H ONE Sodium Chloride 1 syr 01/17/25 16:34 0.9% Sodium Chloride 10 Ml Disp.Syrin IVF PRN PRN To flush IV Discontinued Medications Generic Name Dose Route Start Last Admin Trade Name Freq PRN Reason Stop Dose Admin Ceftriaxone Sodium 1 gm 01/17/25 17:23 Ceftriaxone 1 Gm Vial IVP 01/17/25 17:24 ONCE ONE Furosemide 60 mg 01/17/25 17:17 Furosemide Inj 100 Mg/10 Ml Vial IVP 01/17/25 17:18 ONCE STA Methylprednisolone Sodium Succinate 125 mg 01/17/25 17:23 Methylprednisolone Sod Succ/Pf 125 Mg/2 Ml Vial IVP 01/17/25 17:24 ONCE ONE Vital Signs: Temp Pulse Resp BP Pulse Ox 01/17/25 16:27 97.8 F 72 18 112/72 95 PORFIRIO Risk Score PORFIRIO Risk Score: Risk Score Odds of by 30D 0 0.1 (0.1-0.2) 1 0.3 (0.2-0.3) 2 0.4 (0.3-0.5) 3 0.7 (0.6-0.9) 4 1.2 (1.0-1.5) 5 2.2 (1.9-2.6) 6 3.0 (2.5-3.6) 7 4.8 (3.8-6.1) Discharge Plan Discharge Patient Disposition: PLACED OBSERVATION Discharge Problem: Generalized weakness, Dehydration, A-fib, CAP (community acquired pneumonia), Hypokalemia, CHF exacerbation Did you review [place] [employer] for ALL controlled substances?: Not Applicable ED Provider: ANAHI KELLER Condition: Stable
[2025-01-17 16:53] LABS: IMMATURE GRANULOCYTE # (AUTO) 0.1 (0.0-1.0); IMMATURE GRANULOCYTE % (AUTO) 0.4 % (0.0-5.0); RDW COEFFICIENT OF VARIATION 16.4 % (11.6-14.8)
[2025-01-17 17:06] LABS: CREATININE 1.56 mg/dL (0.60-1.30)
[2025-01-17] MEDS ORDERED: TYLENOL PO PRN (18:03)
--- NOTE | 2025-01-17 18:46 | DI ---
EXAM: CHEST RADIOGRAPH TECHNIQUE: Single frontal chest radiograph. HISTORY: Weakness. COMPARISON: 10/10/2024. FINDINGS: Mild atelectasis or pneumonia at the right lung base, worse than seen previously. Lungs are otherwise clear The heart is enlarged. There is calcification in the aorta consistent with atherosclerosis. There is no pleural effusion. There is no pneumothorax. IMPRESSION: 1. Mild right basilar atelectasis or pneumonia, worse than seen previously. 2. Atherosclerosis. Cardiomegaly. 3. Otherwise unremarkable chest radiograph.
[2025-01-17] MEDS: ROCEPHIN 1 GM VIAL IVP ONE (18:59)
[2025-01-17] MEDS: LASIX IVP STA (19:00)
[2025-01-17] MEDS: SOLU-MEDROL 125 MG IVP ONE (19:00)
[2025-01-17] MEDS: LACTATED RINGERS 1,000 ML IV ONE (19:52)
[2025-01-17] MEDS: DOXYCYCLINE PO SCH (20:13)
[2025-01-17] MEDS ORDERED: CALMOSEPTINE OINTMENT TP PRN (20:31)
[2025-01-17 20:44] VITALS: BMI 27.0
[2025-01-17] MEDS: LOPRESSOR PO SCH (20:55)
[2025-01-17 21:12] LABS: GLUCOSE, URINE (UA) Negative (NEGATIVE); LEUKOCYTE ESTERASE ,URINE 3+ (NEGATIVE); URINE, BLOOD 2+ (NEGATIVE)
[2025-01-17 21:15] LABS: SQUAMOUS EPITHELIAL CELL,UR NOT PRESENT (0-5)
[2025-01-17 21:27] LABS: URINE WBC, MICROSCOPIC TNTC (0-2)
[2025-01-17 21:48] LABS: INR 8.8 SI (0.0-3.9)
[2025-01-18] MEDS: LASIX IVP SCH ×2 (00:31→17:18)
[2025-01-18] MEDS: PROTONIX PO SCH ×2 (05:08→20:37)
[2025-01-18] MEDS: XANAX PO PRN (05:11)
[2025-01-18 05:16] LABS: IMMATURE GRANULOCYTE # (AUTO) 0.1 (0.0-1.0); IMMATURE GRANULOCYTE % (AUTO) 1.1 % (0.0-5.0); RDW COEFFICIENT OF VARIATION 16.1 % (11.6-14.8)
[2025-01-18 05:41] LABS: CREATININE 1.69 mg/dL (0.60-1.30)
[2025-01-18 06:25] LABS: INR 8.81 SI (0.0-3.9)
[2025-01-18] MEDS ORDERED: COUMADIN PO SCH (09:00)
[2025-01-18] MEDS: JARDIANCE PO SCH (09:23)
[2025-01-18] MEDS: FERROUS SULFATE PO SCH (09:24)
[2025-01-18] MEDS: K-DUR PO SCH (09:24)
[2025-01-18] MEDS: ZOLOFT PO SCH (09:24)
[2025-01-18] MEDS: LANOXIN PO SCH (09:24)
[2025-01-18] MEDS: ROCEPHIN 1 GM/50 ML D5W 1 GM/50 ML BAG IV SCH (09:25)
[2025-01-18] MEDS: SINGULAIR PO SCH (09:25)
[2025-01-18] MEDS: SPIRIVA IH SCH (09:26)
[2025-01-18] MEDS: ZOFRAN TAB PO SCH (11:19)
--- NOTE | 2025-01-18 12:56 | RS.OTINEVL ---
Subjective Patient information Date of Evaluation: 01/18/25 Date of Arrival on Unit: 01/17/25 Admitted From:: Facility Transfer (Transfer from [facility] for swing bed) Diagnosis: Pneumonia, weakness, impaired balance PRECAUTIONS: Fall risk Usual Living Arrangement: Alone Living Arrangement Comments: lives home alone with dog, has extended family that is supportive Home Environment: House and Stairs (few) (1 step) Medical History: Hypertension, COPD, CHF and Arthritis Medical History Comments:: DJD, metabolic syndrome, Afib, LVH, mitral regurgitation, anemia, LEOPOLDO, Lumbar compression fx L1-L4 LATEX ALLERGY?: No Medications: see chart Subjective Information/ Patient Comments:: "I am going to do it." Level of function Prior to this admission, the patient could do the following:: Independent Selfcare, Independent ADL's, Independent Ambulation, 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 Pt was living alone at her home with her dog. Current Level of Function: Partially Dependent Comments: Pt is very weak. Requires assistance with ADLS. Current Equipment Used at Home: rollator, shower chair, Bed Side Commode. Interventions Objective Patient Orientation: Person, Place and Situation Observation: Pt was wearing a Purewick with a brief. Pt stood from EOB with min A x 1. Pt completed functional mobility with CGA. Pt becomes very weak and fatigued as she ambulates with rolling walker. Pt has full AROM of BUE. Pt has decreased functional mobility. Interventions ROM Right Upper Extremity AROM: WFL's Left Upper Extremity AROM: WFL's Strength Right Upper Extremity: Moderate Weakness Left Upper Extremity: Moderate Weakness Sensation Right Upper Extremity: Intact/Normal Left Upper Extremity: Intact/Normal Balance Sitting Balance Static Sitting Balance: Good Dynamic Sitting Balance: Good Standing Balance Static Standing Balance: Poor Dynamic Standing Balance: Poor ADL Skills Self Feeding Self Feeding: Set Up Only Grooming Grooming: Min Assist Grooming Set-up: Sitting Bathing Bathing UE: CGA Bathing LE: Min Assist Bathing Set-up: Shower Dressing Dressing UE: CGA Dressing LE: Min Assist Toilet Management Toilet Hygiene: Min Assist Toilet Clothing Management: Min Assist Functional Mobility Transfers Sit to Stand: Min Assist Stand to Sit: CGA Stand Pivot Transfers: CGA Ambulation Weight Bearing Status: FWB Assistive Device Used: Rolling Walker Assistance needed with Ambulation: CGA Safety Awareness Safety Awareness: Fair JOVANA INDEX SCORE: . Additional Treatment Performed Time with patient Length of Evaluation: 20 Total treatment time: 25 Activities Do you enjoy playing games?: Yes Would you be interested in leaving your room for activities?: Yes Would you enjoy group activities?: Yes Do you have difficulty with your vision?: Yes Patient Interests:: Watching Television and Visiting/Socializing Patient Education Patient Education: Education of diagnosis, Body/Joint mechanics, Home Exercise Program and Education of Plan of Care Teaching Recipient: Patient Teaching Methods: Discussion and Demonstration Assessment Problem List:: Decreased level of function, Requires training/education, Decreased safety/Risk of falls and Weakness Rehab Potential: Good Further Therapy Indicated?: Yes Evaluation Complexity: HISTORY: Medium, EXAM OF BODY SYSTEMS: Medium and CLINICAL DECISION MAKING: Medium Patient's Goal(s): To be able to get stronger to be able to take care of herself at [facility]. Short Term Goals Goals GOAL 1: Pt to increase BUE strength to 4+/5. Goal to be met by: 01/25/25 GOAL 2: Pt to be Independent with LB dressing. Goal to be met by: 01/25/25 GOAL 3: Pt to be (I) with personal hygiene. Goal to be met by: 01/25/25 GOAL 4: Pt to be SUP for grooming at the sink. Goal to be met by: 01/25/25 GOAL 5: Pt to be Sup for toilet transfers. Goal to be met by: 01/25/25 GOAL 6: Pt to increase dyn. std. bal. to Fair. Goal to be met by: 01/25/25 Halfway Goals GOAL 1: Pt to increase BUE strength to 5/5. Goal to be met by: 01/28/25 GOAL 2: Pt to be (I) with ADLS. Goal to be met by: 01/28/25 GOAL 3: Pt to increase dyn. std. bal. to F+. Goal to be met by: 01/28/25 Plan Plan of Care: Therapeutic EX, Therapeutic Activity and Self-Care/Home Management Frequency of Treatment: 1-2 X day, as tolerated Duration of Treatment: 7-10 days Anticipated Discharge Destination: Assisted Living Facility Treatment Diagnosis (ICD 10 Codes): Z74.1 need for assistance with personal care, M62.81 Muscle weakness, R26.81 Imp. Bal. Has the Physician been added for Co-signature?: Yes
--- NOTE | 2025-01-18 13:03 | PCM ---
Date of Service Date Seen by Provider: 01/18/25 Time Seen by Provider: 09:30 Admit Day/Time Admission Date: 01/17/25 Reason for Admission Chief Complaint: GEN. WKNESS, CHF EXACERBATION, CAP, AFIB Hospital Provider Hospital Provider: SAUL VALLEJO, [facility] [facility] Primary Care Physician: ANNA CRANE APRN History of Present Illness History of Present Illness: 69 yo female with pmh of CHF, Afib, Anemia, Asthmatic Bronchitis, and colon mass presented to the ER for weakness. Per patient, she has fallen multiple times in the home due to profound weakness. States she gets up she is able to walk but has difficulties being able to push up out of the bed or chair and then becomes too weak to walk household distances. She went to see PCP yesterday and was unable to get out of the car. PCP then sent to ER for further evaluation. Found to have pneumonia and UTI. INR supratherapeutic at 8, BNP also elevated at 8400. She was given lasix, steroids, and cefepime. Admitted to med/surg. Today, she reports continued generalized weakness. No specific complaints. Does report inability to control her bladder. Denies any cough or sob. Lower extremity swelling but not as bad as they normally are. Later stated she has been nauseated after taking some of her medications at home so she hasn't been taking them. Patient states she is going to [facility] as of January 30 due to need for closer supervision. Case Discussed With Case Discussed With: Patient's case was discussed with the ER Physicians, Dr. Wilson. [facility] Medical History Cardiac murmur due to mitral valve disorder I34.0 - Nonrheumatic mitral (valve) insufficiency (ICD-10) Asthmatic bronchitis Breo julissa J45.909 - Unspecified asthma, uncomplicated (ICD-10) Cataract right; DR SAUNDERS H26.9 - Unspecified cataract (ICD-10) GI bleed K92.2 - Gastrointestinal hemorrhage, unspecified (ICD-10) Family History Mother No problems noted. FATHER Cancer Mother Cancer Asthma MATERNAL GRANDMOTHER CVA (cerebral vascular accident) MATERNAL GRANDFATHER Cancer Social History Smoking and tobacco status: Former smoker Tobacco: How many years used: 2 How long ago did patient quit smoking: quit 1978 Alcohol intake: current Substance use type: does not use Special myke needs: No Agree to transfusion: Yes Adopted: No Caregiver/support person: No Foster care: No Household members: none Housing: house Marital status: D Lives independently: Yes Daycare: no daycare Number of children: 1 service: No senior care: No Current occupational status: retired History of recent travel: No Do you think of yourself as: straight/heterosexual Current gender identity: female Seatbelt use: always Drives intoxicated or rides with intoxicated cryogenic transport driver: No Current diet type/program: regular Water heater temperature set < 120 degrees: Yes Working smoke detector in home: Yes Fire extinguisher in home: Yes Carbon monoxide detector in home: Yes Allergies Allergies Allergy/AdvReac Type Severity Reaction Status Date / Time ampicillin Allergy Unknown Unknown Verified 01/17/25 17:30 erythromycin base Allergy Unknown Unknown Verified 01/17/25 17:30 pravastatin (From Pravachol) AdvReac Mild Other Verified 01/17/25 17:30 Current Medications Home Medications Acetaminophen (Acetaminophen 325 Mg Tablet) 650 mg PO Q4H PRN PRN Reason: Mild Pain Alprazolam (Alprazolam 0.5 Mg Tablet) 0.5 mg PO BID PRN PRN Reason: Anxiety Last Admin: 01/18/25 05:11 Dose: 0.5 mg Calamine/Phenol (Menthol/Zinc Oxide 113 Gm Ointment) 1 applic TP PRN PRN PRN Reason: Rash Digoxin (Digoxin 125 Mcg Tablet) 125 mcg PO DAILY [facility] Last Admin: 01/18/25 09:24 Dose: 125 mcg Doxycycline Hyclate (Doxycycline Hyclate 100 Mg Capsule) 100 mg PO Q12HR [facility] Stop: 01/22/25 09:01 Last Admin: 01/18/25 09:24 Dose: 100 mg Empagliflozin (Empagliflozin 10 Mg Tablet) 10 mg PO DAILY [facility] Last Admin: 01/18/25 09:23 Dose: 10 mg Famotidine (Famotidine Inj 20 Mg/2 Ml Vial) 20 mg IVP Q12HR [facility] Last Admin: 01/18/25 13:15 Dose: 20 mg Ferrous Sulfate (Ferrous Sulfate 324 Mg Tablet.) 324 mg PO DAILY [facility] Last Admin: 01/18/25 09:24 Dose: 324 mg Furosemide (Furosemide Inj 40 Mg/4 Ml Vial) 40 mg IVP BIDAC2 [facility] CEFTRIAXONE/D5W 1 GM PREMIX (Rocephin 1 Gm/50 Ml D5w) 1 gm in 50 mls @ 100 mls/hr IV DAILY [facility] Stop: 01/21/25 08:59 Last Admin: 01/18/25 09:25 Dose: 100 mls/hr Metoclopramide HCl (Metoclopramide Hcl 10 Mg/2 Ml) 5 mg IVP Q6H PRN PRN Reason: Nausea / Vomiting Last Admin: 01/18/25 14:17 Dose: 5 mg Metoprolol Tartrate (Metoprolol Tartrate 25 Mg Tablet) 25 mg PO BID [facility] Last Admin: 01/18/25 09:23 Dose: 25 mg Montelukast Sodium (Montelukast Sodium 10 Mg Tablet) 10 mg PO DAILY [facility] Last Admin: 01/18/25 09:25 Dose: 10 mg Ondansetron HCl (Ondansetron Hcl 4 Mg Tablet) 4 mg PO Q6HR [facility] Last Admin: 01/18/25 11:19 Dose: 4 mg Pantoprazole Sodium (Pantoprazole Sodium 40 Mg Tablet.) 40 mg PO QDAC2 [facility] Last Admin: 01/18/25 05:08 Dose: 40 mg Potassium Chloride (Potassium Chloride 20 Meq Tab) 20 meq PO DAILYWM2 [facility] Last Admin: 01/18/25 09:24 Dose: 20 meq Saccharomyces Boulardii (Saccharomyces Boulardii 250 Mg Capsule) 250 mg PO BID [facility] Sertraline HCl (Sertraline Hcl 50 Mg Tablet) 50 mg PO DAILY [facility] Last Admin: 01/18/25 09:24 Dose: 50 mg Sodium Chloride (0.9% Sodium Chloride 10 Ml Disp.Syrin) 1 syr IVF PRN PRN PRN Reason: To flush IV Last Admin: 01/18/25 14:18 Dose: 1 syr Tiotropium [place] (Tiotropium [place] 18 Mcg Cap.W.Dev) 1 cap IH DAILY [facility] Last Admin: 01/18/25 09:26 Dose: 1 cap Tramadol HCl (Tramadol Hcl 50 Mg Tablet) 50 mg PO BID PRN PRN Reason: Pain tiotropium bromide 1.25 mcg/actuation mist for inhalation (Spiriva Respimat) 2 puff inhalation Q24H 04/24/22 [History Confirmed 01/17/25] furosemide 40 mg tablet 40 mg PO BIDAC2 10/14/24 [History Confirmed 01/17/25] ferrous sulfate 324 mg (65 mg iron) tablet,delayed release 324 mg PO DAILY #30 tabs 10/20/24 [Rx Confirmed 01/17/25] metoprolol tartrate 25 mg tablet 25 mg PO BID #1 tab 10/20/24 [Rx Confirmed 01/17/25] alprazolam 0.5 mg tablet 0.5 mg PO BID PRN anxiety #60 tabs 11/14/24 [Rx Confirmed 01/17/25] digoxin 125 mcg (0.125 mg) tablet 125 mcg PO DAILY #90 ea 11/14/24 [Rx Confirmed 01/17/25] montelukast 10 mg tablet 10 mg PO DAILY #90 tabs 11/14/24 [Rx Confirmed 01/17/25] potassium chloride 20 mEq tablet,extended release 20 meq PO DAILY #30 tabs 11/14/24 [Rx Confirmed 01/17/25] empagliflozin 10 mg tablet (Jardiance) 10 mg PO QDAY #30 tabs 11/22/24 [Rx Confirmed 01/17/25] pantoprazole 40 mg tablet,delayed release 40 mg PO DAILY #90 tabs 12/12/24 [Rx Confirmed 01/17/25] tramadol 50 mg tablet 50 mg PO BID PRN pain #60 tabs 12/12/24 [Rx Confirmed 01/17/25] sertraline 50 mg tablet (Zoloft) 50 mg PO QDAY #30 tabs 01/03/25 [Rx Confirmed 01/17/25] warfarin 6 mg tablet (Jantoven) 6 mg PO DAILY #30 tabs 01/04/25 [Rx Confirmed 01/17/25] Opioid Naive vs. Tolerant Does Patient Take Opioids?: No Is Patient Opioid Naive?: Yes What is Opioid Naive?: *Opioid Naive implies the patient is not already taking opioids or not chronically receiving opioids on a daily basis. *PRN dosing is not "usually" associated with tolerance. *Patients are at higher risk of over-sedation and aspiration. Is Patient Opioid Tolerant?: No What is Opioid Tolerant?: *Opioid Tolerance implies less than the expected response to an opioid. *Acquired tolerance is defined by the patient taking 60mg of oral morphine daily (or equianalgesic dose of another opioid) for 1 week or more. *Often associated with chronic pain. *May take more than usual dose to achieve desired pain control. Review of Systems Constitutional: Reports Fatigue and Weakness; Denies Fever Head: Reports Normocephalic Eyes: Reports No symptoms Ears: Reports No symptoms Nose: Reports No symptoms Mouth: Reports No symptoms Throat: Reports No symptoms Cardiovascular: Reports Edema; Denies Chest pain Respiratory: Denies Shortness of air Gastrointestinal: Reports Nausea Genitourinary: Reports No Symptoms Musculoskeletal: Reports No symptoms Endocrine: Reports No symptoms Hematology: Reports No symptoms Immunology: Reports No symptoms Neurological: Reports No symptoms Psychiatric: Reports No symptoms Physical examination Most Recent Vital Signs: Most Recent Vital Signs Temperature 96.7 F L 01/18/25 10:00 Temperature Source Temporal Artery Scan 01/18/25 10:00 Temperature Source Temporal Artery Scan 01/17/25 16:27 Pulse Rate 65 01/18/25 10:00 Respiratory Rate 20 01/18/25 05:35 Blood Pressure 115/75 01/18/25 10:00 Blood Pressure Mean 88 01/18/25 10:00 Blood Pressure Left Arm 116/58 01/17/25 20:08 Blood Pressure Location Left Arm 01/18/25 10:00 Blood Pressure Position Supine 01/18/25 10:00 O2 Sat by Pulse Oximetry 94 L 01/18/25 10:00 Oxygen Delivery Method Room Air 01/18/25 10:00 Height 5 ft 4 in 01/17/25 20:08 Weight 73.8 kg 01/18/25 06:00 Telemetry Type Remote Telemetry 01/18/25 07:00 Telemetry Monitoring Continues 01/18/25 07:00 Irregular Telemetry Rate (Approximate) 50-60 BPM 01/18/25 07:00 Telemetry Heart Rate 73 02/20/24 19:00 EKG QRS Interval 0.07 01/18/25 07:00 Telemetry Strip Reading Atrial fib with slow Ventricular response 01/18/25 07:00 Appearance: Positive No Apparent Distress, Alert and Oriented x3 and Ill-Appeari ng Skin: Positive Rashes (scattered abrasions to lower extremities), Warm, Good Color and Other (abraded area to L hip with purulent drainage present, abraded area to R hip with purulent drainage) HEENT: Positive Normocephalic and PERRLA Neck: Positive Supple and Midline Trachea Chest/Lungs: Positive Symmetrical With Equal Breath Sounds and Clear to Auscultation Bilaterally (diminished) Heart: Positive Pulses Normal and Murmur GI/: Positive Soft, Nontender, Bowel Sounds Normal and No Distention Musculoskeletal: Positive Not Examined Extremities: Positive Edema (+2-3 pitting BLE) Neurological: Positive Sensation Intact, Motor intact, Reflexes Intact, Alert, Oriented and Other (generalized weakness, debility) Labs This Visit Labs This Visit: Labs This Visit 01/17/25 01/17/25 01/17/25 16:47 20:09 20:55 WBC 13.79 H RBC 3.40 L Hgb 10.2 L Hct 32.8 L MCV 96.5 MCH 30.0 MCHC 31.1 L RDW Coeff of Devora 16.4 H Plt Count 216 Immature Gran % (Auto) 0.4 Neut % (Auto) 38.4 L Lymph % (Auto) 6.6 L [place] % (Auto) 7.0 Eos % (Auto) 46.9 H Baso % (Auto) 0.7 Neut # (Auto) 5.3 Lymph # (Auto) 0.9 [place] # (Auto) 1.0 Eos # (Auto) 6.5 H Baso # (Auto) 0.1 Immature Gran # (Auto) 0.1 PT 80.9 H INR 8.80 H* Sodium 135.3 Potassium 3.47 L Chloride 99.7 Carbon Dioxide 27.9 Anion Gap 11.17 BUN 32.0 H Creatinine 1.56 H Estimated GFR (MDRD) 33.00 BUN/Creatinine Ratio 20.51 Glucose 102.0 Calcium 8.82 Magnesium 1.70 Total Bilirubin 1.55 H AST 20.3 ALT 9.4 Alkaline Phosphatase 84.6 Troponin I 0.013 NT-Pro-B Natriuret Pep 8400 H Total Protein 7.53 Albumin 3.37 L Globulin 4.16 Albumin/Globulin Ratio 0.81 Urine Color Yellow Urine Clarity Cloudy Urine pH 5.5 Ur Specific [place] 1.020 Urine Protein 1+ H Urine Glucose (UA) Negative Urine Ketones Negative Urine Blood 2+ H Urine Nitrite Positive H Urine Bilirubin Negative Urine Urobilinogen 0.2 Ur Leukocyte Esterase 3+ H Urine Microscopic WBC Tntc Ur Squamous Epith Cells Not present Urine Bacteria 1+ 01/18/25 04:40 WBC 4.70 D RBC 3.34 L Hgb 9.8 L Hct 31.9 L MCV 95.5 MCH 29.3 MCHC 30.7 L RDW Coeff of Devora 16.1 H Plt Count 232 Immature Gran % (Auto) 1.1 Neut % (Auto) 88.6 H Lymph % (Auto) 7.7 L [place] % (Auto) 0.9 Eos % (Auto) 1.5 Baso % (Auto) 0.2 Neut # (Auto) 4.2 Lymph # (Auto) 0.4 L [place] # (Auto) 0.0 L Eos # (Auto) 0.1 Baso # (Auto) 0.0 Immature Gran # (Auto) 0.1 PT 81.0 H INR 8.81 H* Sodium 132.8 L Potassium 3.77 Chloride 98.8 Carbon Dioxide 27.3 Anion Gap 10.47 BUN 31.9 H Creatinine 1.69 H Estimated GFR (MDRD) 30.00 BUN/Creatinine Ratio 18.87 Glucose 167.5 H D Calcium 8.37 L Magnesium Total Bilirubin 1.06 AST 18.7 ALT 7.5 Alkaline Phosphatase 72.5 Troponin I NT-Pro-B Natriuret Pep Total Protein 6.71 Albumin 2.95 L Globulin 3.76 Albumin/Globulin Ratio 0.78 Urine Color Urine Clarity Urine pH Ur Specific [place] Urine Protein Urine Glucose (UA) Urine Ketones Urine Blood Urine Nitrite Urine Bilirubin Urine Urobilinogen Ur Leukocyte Esterase Urine Microscopic WBC Ur Squamous Epith Cells Urine Bacteria Microbiology This Visit 01/17/25 20:09 Urine,Random Urine Culture - Preliminary Imaging Imaging: EXAM: CHEST RADIOGRAPH TECHNIQUE: Single frontal chest radiograph. HISTORY: Weakness. COMPARISON: 10/10/2024. FINDINGS: Mild atelectasis or pneumonia at the right lung base, worse than seen previously. Lungs are otherwise clear The heart is enlarged. There is calcification in the aorta consistent with atherosclerosis. There is no pleural effusion. There is no pneumothorax. IMPRESSION: 1. Mild right basilar atelectasis or pneumonia, worse than seen previously. 2. Atherosclerosis. Cardiomegaly. 3. Otherwise unremarkable chest radiograph EKG Interpretation EKG Interpretation: afib rate of 65, no st changes Review Statement Review Statement: I have independently reviewed and interpreted the labs/EKGs/imaging that were ordered by the ER provider. I have reviewed all outside records that are available currently in our EMR including imaging/notes/labs from previous visits. Plan Plan: 1. CAP - rocephin and doxy, nebs prn, strep pneumo, legionella, sputum culture, and mrsa ordered, PSI IV 2. UTI - gram negative rods on culture this am, continue rocephin 1G Q24H 3. Acute Diastolic Heart Failure with Several Mitral Regurgitation Exacerbation - EF normal 10/24, supposed to follow with cards outpatient for repeat echo, I&O, daily weight, lasix 40 mg BID, 1800 fluid restriction 4. Supratherapeutic INR - 8.81 this am, hold coumadin at this time, will recheck INR daily until returns to appropriate level 5. Iron Deficiency Anemia - hemoglobin stable, continue iron supplementation, follows with Dr. Tello 6. Rectosigmoid polyp - does not wish for intervention 7. Afib - rate controlled, continue home medications 8. Weakness/Frequent Falls/Deconditioning - PT/OT DVT Prophylaxis: Coumadin - holding due to supratherapeutic INR Time Spent: Greater than 80 minutes spent with patient, 50% of the time spent with this patient was devoted to counseling and coordination of care. Advanced Care Plannin minutes spent discussing advance care planning. Disposition: Admit to: Med/Surg IP Full Code Discussed Plan of Care with Dr. Ting Velasquez. Medications Medication Orders: Medications Ordered Category Date Time Status 0.9 % Sodium Chloride [Saline Flush] Meds 01/17/25 16:34 Active 1 syr IVF PRN PRN Acetaminophen [Tylenol] Meds 01/17/25 18:03 Active 650 mg PO Q4H PRN Alprazolam [Xanax] Meds 01/17/25 20:32 Active 0.5 mg PO BID PRN ANX Anxiety Ceftriaxone/D5w 1 gm Premix [Rocephin 1 gm/50 ml D5w] Meds 01/18/25 09:00 Active 1 gm in 50 ml IV DAILY Digoxin [Lanoxin] Meds 01/18/25 09:00 Active 125 mcg PO DAILY Doxycycline Hyclate [Doxycycline] Meds 01/17/25 21:00 Active 100 mg PO Q12HR Empaglifozin [Jardiance] Meds 01/18/25 09:00 Active 10 mg PO DAILY Famotidine Inj [Pepcid] Meds 01/18/25 11:30 Active 20 mg IVP Q12HR Ferrous Sulfate Meds 01/18/25 09:00 Active 324 mg PO DAILY Furosemide [Lasix] Meds 01/18/25 17:00 Active 40 mg IVP BIDAC2 Menthol/Zinc Oxide [Calmoseptine Ointment] Meds 01/17/25 20:31 Active 1 applic TP PRN PRN Metoprolol Tartrate [Lopressor] Meds 01/17/25 21:00 Active 25 mg PO BID Montelukast Sodium [Singulair] Meds 01/18/25 09:00 Active 10 mg PO DAILY Ondansetron HCl [Zofran Tab] Meds 01/18/25 12:00 Active 4 mg PO Q6HR Pantoprazole Sodium [Protonix] Meds 01/18/25 06:00 Active 40 mg PO QDAC2 Potassium Chloride [K-Dur] Meds 01/18/25 07:30 Active 20 meq PO DAILYWM2 Saccharomyces Boulardii [Florastor] Meds 01/18/25 21:00 Active 250 mg PO BID Sertraline HCl [Zoloft] Meds 01/18/25 09:00 Active 50 mg PO DAILY Tiotropium [place] [Spiriva] Meds 01/18/25 09:00 Active 1 cap IH DAILY Tramadol HCl [Ultram] Meds 01/17/25 20:32 Active 50 mg PO BID PRN PAIN Pain
[2025-01-18] MEDS: PEPCID IVP SCH (13:15)
[2025-01-18] MEDS: REGLAN IVP PRN (14:17)
--- NOTE | 2025-01-18 14:50 | RS.PTINEVL ---
Subjective Patient information Date of Evaluation: 01/18/25 Date of Arrival on Unit: 01/17/25 Admitted From:: Emergency Dept Diagnosis: General Weakness, CHF exacerbation, A Fib Usual Living Arrangement: Alone Living Arrangement Comments: lives home alone with dog, has extended family that is supportive Home Environment: House and Stairs (few) (1 step) Medical History: Hypertension, COPD, CHF and Arthritis Medical History Comments:: DJD, metabolic syndrome, Afib, LVH, mitral regurgitation, anemia, LEOPOLDO, Lumbar compression fx L1-L4 LATEX ALLERGY?: No Medications: see chart Subjective Information/ Patient Comments:: Ms. Brady states she lives alone. She was driving four days ago. She has had recurring falls. Has been having to use a rollator at home for ambulation. Admits that she has not been taking all of her medication and also reports having no appetite. Her niece, Monty, states they have an apartment for her at [facility], but she needs to be able to be more independent to go there. Ms. Brady states she will do whatever we ask her to. 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 Interventions Objective Patient Orientation: Person, Place, Time and Situation Current Interventions: Telemetry Observation: nancy wick in place with depends brief Range of Motion ROM Comments:: Bilateral AROM is WFL's. Muscle Strength Muscle Strength Comments:: Demonstrates hip strength 3/5, knee strength 3+/5, ankles 4/5. Sensation Sensation Comments: reports some numbness in her feet Balance Sitting Balance and Reactions Static Sitting Balance: Good (-) Dynamic Sitting Balance: Fair Standing Balance and Reactions Static Standing Balance: Fair (-) Dynamic Standing Balance: Fair (-) Functional Mobility Bed Mobility Supine to Sit: CGA, Verbal Cues and Tactile Cues Comments:: presents lying in bed. Demonstrates slow, difficult movement with bring LE's to the side of the bed. Cues given for her to reach for the bed rail and use that to pull herself up to sitting. Patient is able to sit on side of bed independently. Transfers Sit to Stand: Min Assist, 1 person assist, Verbal Cues and Tactile Cues Stand to Sit: Min Assist, 1 person assist, Verbal Cues and Tactile Cues Comments:: Pt pulls herself up with the walker and when transferring to sit down, does not reach back for chair. Safety Awareness Safety Awareness: Poor JOVANA INDEX SCORE: NA Ambulation Ambulation Weight Bearing Status: FWB Assistive Device Used: Rolling Walker Distance: 35-40 feet total, with 2 rest breaks per patient request Assistance needed with Ambulation: CGA, 2 person assist, Verbal Cues and Tactile Cues Quality of Ambulation: Pt requires min assistance with turning walker to change directions. Fatigues quickly with ambulation. Gait Deviations: Narrow Based gait, Shuffling gait, Forward posture and Short stride Factors Affecting Ambulation: Decreased Balance, Weakness, Decreased Safety and Limited Endurance Treatment time Time with patient Length of Evaluation: 14 mins Total treatment time: 14 Assessment Assessment Problem List:: Decreased level of function, Requires training/education, Decreas ed safety/Risk of falls, Weakness, Pain limits previous level of function and Cognitive status limits abilities Rehab Potential: Good Further Therapy Indicated?: Yes Candidate for Swing Bed for Therapy Services?: Yes, she presents good potential to gain increased independence and safety with skilled therapy. Comments: Presents to be a High fall risk at this time. Evaluation Complexity: HISTORY: Medium (Hx falls, HTN, Anemia, Asthma, COPD), EXAM OF BODY SYSTEMS: Medium, CLINICAL PRESENTATION: Medium and CLINICAL DECISION MAKING: Medium Patient's Goal(s): Her goal is regain independence and avoid falls. Short Term Goals GOAL #1: Supine<> sit with supvn and VC's. Goal to be met by: 01/22/25 GOAL #2: Sit <> stand with CGA and consistent use of UE's. Goal to be met by: 01/22/25 GOAL #3: Pt to amb 60 feet with CGA of 1, with good step length and base of support. Goal to be met by: 01/22/25 GOAL #4: Bilateral hip flexion 4/5. Goal to be met by: 01/22/25 Delinquency Counselor Goals GOAL #1: All bed mobility independent. Goal to be met by: 01/28/25 GOAL #2: All transfers with SBA-Ind with good safety. Goal to be met by: 01/28/25 GOAL #3: Pt to amb 150 feet w/ RW with good safety, SBA-I. Goal to be met by: 01/28/25 Plan Plan of Care: Therapeutic EX, Neuromuscular Re-Educ, Therapeutic Activity and Self-Care/Home Management Frequency of Treatment: 1-2 X day, as tolerated Duration of Treatment: 7-10 days Anticipated Discharge Destination: Assisted Living Facility Treatment Diagnosis (ICD 10 Codes): impaired gait, impaired balance, risk for falls Has the Physician been added for Co-signature?: Yes
[2025-01-18] MEDS: FLORASTOR PO SCH (20:11)
[2025-01-19 05:29] LABS: IMMATURE GRANULOCYTE # (AUTO) 0.3 (0.0-1.0); IMMATURE GRANULOCYTE % (AUTO) 4.6 % (0.0-5.0); RDW COEFFICIENT OF VARIATION 16.7 % (11.6-14.8)
[2025-01-19 05:46] LABS: CREATININE 1.8 mg/dL (0.60-1.30)
[2025-01-19 06:13] LABS: INR 10.95 SI (0.0-3.9)
[2025-01-19] MEDS: MERREM 1 GM/50 ML NACL 1 GM/50 ML BAG IV SCH (09:41)
[2025-01-19] MEDS: VANCOMYCIN 1 GRAM/200 ML PREMIX 1 GM/200 ML BAG IV ONE (10:46)
--- NOTE | 2025-01-19 11:19 | PCM.PROG ---
Provider Provider[facility]UL VALLEJO[facility] Chief Complaint Chief Complaint: GEN. WKNESS, CHF EXACERBATION, CAP, AFIB Vital Signs Vital Signs: Vital Signs: Last 24 Hours 01/18/25 13:00 01/18/25 18:00 01/18/25 19:00 Temperature 96.8 F L Temperature Source Temporal Artery Scan Pulse Rate 76 Respiratory Rate Blood Pressure 128/88 Blood Pressure Mean 101 Blood Pressure Location Right Arm Blood Pressure Position Supine O2 Sat by Pulse Oximetry 94 L Oxygen Delivery Method Room Air Weight Telemetry Type Remote Telemetry Remote Telemetry Telemetry Monitoring Continues Continues Irregular Telemetry Rate (Approximate) 60-70 BPM 60-70 BPM EKG QRS Interval 0.06 0.06 Telemetry Strip Reading Atrial Fib A-FIB 01/18/25 20:00 01/18/25 22:00 01/19/25 01:00 Temperature 96.9 F L Temperature Source Temporal Artery Scan Pulse Rate 71 Respiratory Rate 16 Blood Pressure 126/71 Blood Pressure Mean 89 Blood Pressure Location Left Arm Blood Pressure Position Supine O2 Sat by Pulse Oximetry 97 Oxygen Delivery Method Room Air Room Air Weight Telemetry Type Remote Telemetry Telemetry Monitoring Continues Irregular Telemetry Rate (Approximate) 50-60 BPM EKG QRS Interval 0.07 Telemetry Strip Reading A-FIB WITH BUSTER RATE 01/19/25 06:00 01/19/25 06:00 01/19/25 07:00 Temperature 96.8 F L Temperature Source Temporal Artery Scan Pulse Rate 64 Respiratory Rate 18 Blood Pressure 101/67 Blood Pressure Mean 78 Blood Pressure Location Left Arm Blood Pressure Position Supine O2 Sat by Pulse Oximetry 97 Oxygen Delivery Method Room Air Weight 71.4 kg Telemetry Type Remote Telemetry Telemetry Monitoring Continues Irregular Telemetry Rate (Approximate) 50-60 BPM EKG QRS Interval 0.12 H Telemetry Strip Reading A-Fib with BBB 01/19/25 09:26 01/19/25 09:46 Temperature 97.8 F Temperature Source Temporal Artery Scan Pulse Rate 62 60 Respiratory Rate 17 Blood Pressure 105/70 Blood Pressure Mean 81 Blood Pressure Location Left Arm Blood Pressure Position Sitting O2 Sat by Pulse Oximetry 97 Oxygen Delivery Method Room Air Weight Telemetry Type Telemetry Monitoring Irregular Telemetry Rate (Approximate) EKG QRS Interval Telemetry Strip Reading Lab Results Lab Results: Lab Results: Last 24 Hours 01/19/25 04:58 WBC 7.43 RBC 3.50 L Hgb 10.3 L Hct 33.6 L MCV 96.0 MCH 29.4 MCHC 30.7 L RDW Coeff of Devora 16.7 H Plt Count 257 Immature Gran % (Auto) 4.6 Neut % (Auto) 77.7 H Lymph % (Auto) 8.6 L [place] % (Auto) 8.9 Eos % (Auto) 0.1 Baso % (Auto) 0.1 Neut # (Auto) 5.8 Lymph # (Auto) 0.6 [place] # (Auto) 0.7 Eos # (Auto) 0.0 Baso # (Auto) 0.0 Immature Gran # (Auto) 0.3 PT 99.4 H D INR 10.95 H* D Sodium 135.7 Potassium 3.39 L Chloride 97.8 L Carbon Dioxide 29.7 Anion Gap 11.59 BUN 38.4 H Creatinine 1.80 H Estimated GFR (MDRD) 28.00 BUN/Creatinine Ratio 21.33 Glucose 137.2 H Calcium 8.54 Total Bilirubin 1.17 AST 18.6 ALT 9.0 Alkaline Phosphatase 69.8 Total Protein 7.09 Albumin 3.19 L Globulin 3.90 Albumin/Globulin Ratio 0.81 Additional Comments Additional Comments: I have independently reviewed and interpreted the labs/EKGs/imaging ordered during this hospital stay. I have reviewed outside records that are available in our EMR that pertain to medical stay including imaging/notes/labs from previous visits. Active Medications Active Medications: Medications Generic Name Dose Route Start Last Admin Trade Name Freq PRN Reason Stop Dose Admin Acetaminophen 650 mg 01/17/25 18:03 Acetaminophen 325 Mg Tablet PO Q4H PRN Mild Pain Alprazolam 0.5 mg 01/17/25 20:32 01/18/25 20:11 Alprazolam 0.5 Mg Tablet PO 0.5 mg BID PRN Administration Anxiety Calamine/Phenol 1 applic 01/17/25 20:31 Menthol/Zinc Oxide 113 Gm Ointment TP PRN PRN Rash Digoxin 125 mcg 01/18/25 09:00 01/19/25 09:26 Digoxin 125 Mcg Tablet PO 125 mcg DAILY GILBERT Administration Empagliflozin 10 mg 01/18/25 09:00 01/19/25 09:27 Empagliflozin 10 Mg Tablet PO 10 mg DAILY GILBERT Administration Famotidine 20 mg 01/18/25 11:30 01/19/25 09:17 Famotidine Inj 20 Mg/2 Ml Vial IVP 20 mg Q12HR GILBERT Administration Ferrous Sulfate 324 mg 01/18/25 09:00 01/19/25 09:27 Ferrous Sulfate 324 Mg Tablet. PO 324 mg DAILY GILBERT Administration Furosemide 40 mg 01/19/25 17:00 Furosemide 40 Mg Tablet PO BIDAC2 GILBERT Meropenem/Sodium Chloride 1 gm in 50 mls @ 100 mls/hr 01/19/25 10:00 01/19/25 09:41 Merrem 1 Gm/50 Ml Nacl IV 01/22/25 09:59 100 mls/hr Q12HR GILBERT Administration VANCOMYCIN/WATER FOR INJ (PEG) 1 gm in 200 mls @ 200 mls/hr 01/20/25 09:00 Vancomycin 1 Gram/200 Ml Premix IV 01/23/25 08:59 DAILY GILBERT Metoclopramide HCl 5 mg 01/18/25 13:49 01/18/25 14:17 Metoclopramide Hcl 10 Mg/2 Ml IVP 5 mg Q6H PRN Administration Nausea / Vomiting Metoprolol Tartrate 25 mg 01/17/25 21:00 01/19/25 09:26 Metoprolol Tartrate 25 Mg Tablet PO 25 mg BID GILBERT Administration Montelukast Sodium 10 mg 01/18/25 09:00 01/19/25 09:27 Montelukast Sodium 10 Mg Tablet PO 10 mg DAILY GILBERT Administration Ondansetron HCl 4 mg 01/18/25 12:00 01/19/25 05:07 Ondansetron Hcl 4 Mg Tablet PO 4 mg Q6HR GILBERT Administration Pantoprazole Sodium 40 mg 01/18/25 21:00 01/19/25 09:27 Pantoprazole Sodium 40 Mg Tablet. PO 40 mg BID GILBERT Administration Potassium Chloride 20 meq 01/18/25 07:30 01/19/25 09:27 Potassium Chloride 20 Meq Tab PO 20 meq DAILYWM2 GILBERT Administration Saccharomyces Boulardii 250 mg 01/18/25 21:00 01/19/25 09:27 Saccharomyces Boulardii 250 Mg Capsule PO 250 mg BID GILBERT Administration Sertraline HCl 50 mg 01/18/25 09:00 01/19/25 09:27 Sertraline Hcl 50 Mg Tablet PO 50 mg DAILY GILBERT Administration Sodium Chloride 1 syr 01/17/25 16:34 01/18/25 17:19 0.9% Sodium Chloride 10 Ml Disp.Syrin IVF 1 syr PRN PRN Administration To flush IV Sodium Chloride 1 syr 01/18/25 21:00 01/19/25 06:44 0.9% Sodium Chloride 10 Ml Disp.Syrin IVF 1 syr Q8HR GILBERT Administration Tiotropium [place] 1 cap 01/18/25 09:00 01/19/25 09:41 Tiotropium [place] 18 Mcg Cap.W.Dev IH 1 cap DAILY GILBERT Administration Tramadol HCl 50 mg 01/17/25 20:32 Tramadol Hcl 50 Mg Tablet PO BID PRN Pain Plan Plan: 1. CAP - nebs prn, strep pneumo, legionella, and sputum culture pending, MRSA positive, PSI IV, initially covered with Rocephin and doxy, due to #2 and wound culture growth escalating to merrem and vanc 2. UTI - urine culture report of ESBL + Ecoli resistent to rocephin, will initiate Merrem for coverage 3. R hip wound - culture growth of gram negative rods and gram positive cocci, positive MRSA, covering with Merrem and vanc until final culture report 4. Acute Diastolic Heart Failure with Several Mitral Regurgitation Exacerbation - Diuresing well, no oxygen requirement, will transition back to PO lasix, EF normal 10/24, supposed to follow with cards outpatient for repeat echo, I&O, daily weight, 1800 fluid restriction 5. Supratherapeutic INR - 10 today, continue to hold coumadin, will recheck INR daily until returns to appropriate level, no s/sx of active bleeding 6. Iron Deficiency Anemia - hemoglobin stable, continue iron supplementation, follows with Dr. Tello 7. 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 Afib - rate controlled, continue home medications 9. Weakness/Frequent Falls/Deconditioning - PT/OT DVT Prophylaxis: Coumadin - holding due to supratherapeutic INR Dispo: Plan for swingbed once medically stable prior to discharge to assisted living due to inability to care for self safely at home. Review Statement Review Statement: I have personally discussed and reviewed the patient's visit/currently labs/imaging/decision making with Dr. Velasquez, my supervising attending. Greater that 50 minutes spent with patient, 50% of the time spent with this patient was devoted to counseling and coordination of care.
[2025-01-19] MEDS: VANCOMYCIN 750 MG/150 ML BAG 750 MG/150 ML BAG IV ONE (12:42)
[2025-01-19] MEDS: LASIX TAB PO SCH (17:01)
[2025-01-19] MEDS: LOPRESSOR PO SCH (21:06)
[2025-01-20 05:26] LABS: IMMATURE GRANULOCYTE # (AUTO) 0.4 (0.0-1.0); IMMATURE GRANULOCYTE % (AUTO) 4.4 % (0.0-5.0); RDW COEFFICIENT OF VARIATION 16.8 % (11.6-14.8)
[2025-01-20 05:38] LABS: CREATININE 1.97 mg/dL (0.60-1.30)
[2025-01-20] MEDS ORDERED: VANCOMYCIN 1 GRAM/200 ML PREMIX 1 GM/200 ML BAG IV SCH (09:00)
[2025-01-20 09:39] LABS: INR 10.72 SI (0.0-3.9)
[2025-01-20] MEDS: INVANZ 1 GM in SODIUM CHLORIDE 50 ML IV SCH (10:46)
--- NOTE | 2025-01-20 10:59 | PCM.PROG ---
Date/Time Seen Date Seen by Provider: 01/20/25 Time Seen by Provider: 08:30 Provider Provider: SAUL VALLEJO, [facility] Chief Complaint Chief Complaint: GEN. WKNESS, CHF EXACERBATION, CAP, AFIB Subjective Subjective: States she feels more confused today. Has felt this way at home prior to admission. Oriented x 3. Doesn't understand what is going on with her. Feels very tired. Reports R hip where wound is causing her pain. HR dropped into upper 30s this am. INR remains elevated. Objective Appearance: Positive No Apparent Distress and Alert and Oriented x3 Chest/Lungs: Positive Symmetrical With Equal Breath Sounds, Clear to Auscultation Bilaterally and Good Air Movement all 4 Lung Terry; Negative Rales, Rhonci or Wheezes Heart: Positive Pulses Normal, Murmur and Bracycardia GI/: Positive Soft, Nontender, Bowel Sounds Normal and No Distention Musculoskeletal: Positive Other (mild erythema to R hip wound, purulent drainage present) Neurological: Positive Sensation Intact, Motor intact, Reflexes Intact, Alert, Oriented and Other (generalized weakness) Vital Signs Vital Signs: Vital Signs: Last 24 Hours 01/19/25 13:00 01/19/25 13:50 01/19/25 18:00 Temperature 98.3 F 96.9 F L Temperature Source Temporal Artery Scan Temporal Artery Scan Pulse Rate 61 54 L Respiratory Rate 17 16 Blood Pressure 97/62 93/61 Blood Pressure Mean 73 71 Blood Pressure Location Left Arm Left Arm Blood Pressure Position Sitting Sitting O2 Sat by Pulse Oximetry 96 94 L Oxygen Delivery Method Room Air Room Air Weight Telemetry Type Remote Telemetry Telemetry Monitoring Continues Irregular Telemetry Rate (Approximate) 50-60 BPM Telemetry Heart Rate EKG QRS Interval 0.13 H Telemetry Strip Reading A-Fib with BBB and PVC's 01/19/25 19:00 01/19/25 20:00 01/19/25 21:19 Temperature 97 F L Temperature Source Temporal Artery Scan Pulse Rate 66 Respiratory Rate 20 Blood Pressure 101/59 L Blood Pressure Mean 73 Blood Pressure Location Left Arm Blood Pressure Position Supine O2 Sat by Pulse Oximetry 94 L Oxygen Delivery Method Room Air Room Air Weight Telemetry Type Remote Telemetry Telemetry Monitoring Continues Irregular Telemetry Rate (Approximate) 60-70 BPM Telemetry Heart Rate EKG QRS Interval 0.07 Telemetry Strip Reading A-FIB 01/20/25 00:59 01/20/25 02:00 01/20/25 05:53 Temperature 96.9 F L 97.8 F Temperature Source Temporal Artery Scan Temporal Artery Scan Pulse Rate 56 L 69 Respiratory Rate 20 18 Blood Pressure 99/62 137/82 Blood Pressure Mean 74 100 Blood Pressure Location Left Arm Right Arm Blood Pressure Position Supine Supine O2 Sat by Pulse Oximetry 95 94 L Oxygen Delivery Method Room Air Room Air Weight Telemetry Type Remote Telemetry Telemetry Monitoring Continues Irregular Telemetry Rate (Approximate) 50-60 BPM Telemetry Heart Rate EKG QRS Interval 0.07 Telemetry Strip Reading A-FIB 01/20/25 05:53 01/20/25 07:00 01/20/25 10:18 Temperature Temperature Source Pulse Rate 48 L Respiratory Rate Blood Pressure Blood Pressure Mean Blood Pressure Location Blood Pressure Position O2 Sat by Pulse Oximetry Oxygen Delivery Method Weight 72.9 kg Telemetry Type Remote Telemetry Telemetry Monitoring Continues Irregular Telemetry Rate (Approximate) 50-60 BPM Telemetry Heart Rate 52 L EKG QRS Interval 0.09 Telemetry Strip Reading Afib with bradycardia Lab Results Lab Results: Lab Results: Last 24 Hours 01/20/25 01/20/25 08:31 05:06 WBC 8.32 RBC 3.21 L Hgb 9.6 L Hct 31.1 L MCV 96.9 MCH 29.9 MCHC 30.9 L RDW Coeff of Devora 16.8 H Plt Count 204 Immature Gran % (Auto) 4.4 Neut % (Auto) 70.1 Lymph % (Auto) 11.5 [place] % (Auto) 11.8 H Eos % (Auto) 1.7 Baso % (Auto) 0.5 Neut # (Auto) 5.8 Lymph # (Auto) 1.0 [place] # (Auto) 1.0 Eos # (Auto) 0.1 Baso # (Auto) 0.0 Immature Gran # (Auto) 0.4 PT 97.4 H INR 10.72 H* Sodium 137.2 Potassium 3.30 L Chloride 99.0 Carbon Dioxide 28.9 Anion Gap 12.60 BUN 41.5 H Creatinine 1.97 H Estimated GFR (MDRD) 25.00 BUN/Creatinine Ratio 21.06 Glucose 109.9 H Calcium 8.22 L Total Bilirubin 0.99 AST 18.6 ALT 7.9 Alkaline Phosphatase 58.6 Total Protein 6.27 L Albumin 2.89 L Globulin 3.38 Albumin/Globulin Ratio 0.85 Vancomycin Trough 16.313 Digoxin 1.84 Additional Comments Additional Comments: I have independently reviewed and interpreted the labs/EKGs/imaging ordered during this hospital stay. I have reviewed outside records that are available in our EMR that pertain to medical stay including imaging/notes/labs from previous visits. Active Medications Active Medications: Medications Generic Name Dose Route Start Last Admin Trade Name Freq PRN Reason Stop Dose Admin Acetaminophen 650 mg 01/17/25 18:03 Acetaminophen 325 Mg Tablet PO Q4H PRN Mild Pain Alprazolam 0.5 mg 01/17/25 20:32 01/18/25 20:11 Alprazolam 0.5 Mg Tablet PO 0.5 mg BID PRN Administration Anxiety Calamine/Phenol 1 applic 01/17/25 20:31 Menthol/Zinc Oxide 113 Gm Ointment TP PRN PRN Rash Digoxin 125 mcg 01/18/25 09:00 01/20/25 10:18 Digoxin 125 Mcg Tablet PO Not Given DAILY GILBERT Empagliflozin 10 mg 01/18/25 09:00 01/20/25 08:12 Empagliflozin 10 Mg Tablet PO 10 mg DAILY GILBERT Administration Famotidine 20 mg 01/18/25 11:30 01/20/25 10:11 Famotidine Inj 20 Mg/2 Ml Vial IVP 20 mg Q12HR GILBERT Administration Ferrous Sulfate 324 mg 01/18/25 09:00 01/20/25 08:12 Ferrous Sulfate 324 Mg Tablet. PO 324 mg DAILY GILBERT Administration Furosemide 40 mg 01/19/25 17:00 01/20/25 05:07 Furosemide 40 Mg Tablet PO 40 mg BIDAC2 GILBERT Administration Ertapenem 1 gm/ Sodium 50 mls @ 100 mls/hr 01/20/25 09:00 01/20/25 10:46 Chloride IV 01/26/25 09:29 100 mls/hr DAILY GILBERT Administration VANCOMYCIN/WATER FOR INJ (PEG) 750 mg in 150 mls @ 150 mls/hr 01/20/25 09:30 Vancomycin 750 Mg/150 Ml Bag IV 01/23/25 09:29 DAILY GILBERT Metoclopramide HCl 5 mg 01/18/25 13:49 01/18/25 14:17 Metoclopramide Hcl 10 Mg/2 Ml IVP 5 mg Q6H PRN Administration Nausea / Vomiting Metoprolol Tartrate 12.5 mg 01/19/25 21:00 01/19/25 21:06 Metoprolol Tartrate 25 Mg Tablet PO 12.5 mg BID GILBERT Administration Montelukast Sodium 10 mg 01/18/25 09:00 01/20/25 08:11 Montelukast Sodium 10 Mg Tablet PO 10 mg DAILY GILBERT Administration Ondansetron HCl 4 mg 01/18/25 12:00 01/20/25 05:07 Ondansetron Hcl 4 Mg Tablet PO 4 mg Q6HR GILBERT Administration Pantoprazole Sodium 40 mg 01/20/25 17:00 Pantoprazole Sodium 40 Mg Tablet. PO BIDAC2 GILBERT Phytonadione 2.5 mg 01/20/25 11:00 Phytonadione 5 Mg Tablet PO 01/20/25 11:01 ONCE ONE Potassium Chloride 20 meq 01/18/25 07:30 01/20/25 08:11 Potassium Chloride 20 Meq Tab PO 20 meq DAILYWM2 GILBERT Administration Saccharomyces Boulardii 250 mg 01/18/25 21:00 01/20/25 08:12 Saccharomyces Boulardii 250 Mg Capsule PO 250 mg BID GILBERT Administration Sertraline HCl 50 mg 01/18/25 09:00 01/20/25 08:12 Sertraline Hcl 50 Mg Tablet PO 50 mg DAILY GILBERT Administration Sodium Chloride 1 syr 01/17/25 16:34 01/18/25 17:19 0.9% Sodium Chloride 10 Ml Disp.Syrin IVF 1 syr PRN PRN Administration To flush IV Sodium Chloride 1 syr 01/18/25 21:00 01/20/25 05:07 0.9% Sodium Chloride 10 Ml Disp.Syrin IVF 1 syr Q8HR GILBERT Administration Tiotropium [place] 1 cap 01/18/25 09:00 01/20/25 08:13 Tiotropium [place] 18 Mcg Cap.W.Dev IH 1 cap DAILY GILBERT Administration Tramadol HCl 50 mg 01/17/25 20:32 Tramadol Hcl 50 Mg Tablet PO BID PRN Pain Plan Plan: 1. CAP - nebs prn, strep pneumo, legionella, and sputum culture pending, MRSA positive, PSI IV, initially covered with Rocephin and doxy, due to #2 and wound culture growth escalating to invanz and vanc 2. UTI - urine culture report of ESBL + Ecoli resistent to rocephin, initiated Merrem for coverage yesterday - switching to invanz for better coverage of all infectious sources 3. R hip wound infection - positive MRSA, culture growth or ESBL+Ecoli and Rothia Kristinae, covering with invanz and vanc, pharmacy recs 7-10 days of antibiotic therapy, due to pain CT hip ordered to r/o other etiology 4. Acute Diastolic Heart Failure with Several Mitral Regurgitation Exacerbation - Diuresing well, no oxygen requirement, transitioned back to PO lasix, EF normal 10/24, supposed to follow with cards outpatient for repeat echo, I&O, daily weight, 1800 fluid restriction 5. Supratherapeutic INR - Continues to remain elevated, will given dose of vitamin K since no improvement in INR level, continue to hold coumadin, will recheck INR daily until returns to appropriate level, no s/sx of active bleeding 6. Iron Deficiency Anemia - hemoglobin stable, continue iron supplementation, follows with Dr. Tello 7. 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 Afib - bradycardic, digoxin level normal, holding home meds due to bradycardia at this time will restart when necessary 9. Weakness/Frequent Falls/Deconditioning - PT/OT DVT Prophylaxis: Coumadin - holding due to supratherapeutic INR Dispo: Plan for swingbed once medically stable prior to discharge to assisted living due to inability to care for self safely at home. Review Statement Review Statement: I have personally discussed and reviewed the patient's visit/currently labs/imaging/decision making with Dr. Velasquez, my supervising attending. Greater that 50 minutes spent with patient, 50% of the time spent with this patient was devoted to counseling and coordination of care.
[2025-01-20] MEDS: MEPHYTON PO ONE (11:40)
[2025-01-20] MEDS: VANCOMYCIN 750 MG/150 ML BAG 750 MG/150 ML BAG IV SCH (11:54)
--- NOTE | 2025-01-20 12:00 | CT ---
EXAM: CT RIGHT HIP WITHOUT CONTRAST. HISTORY: Right hip pain, wound infection. TECHNIQUE: CT scan of the right hip without intravenous contrast was performed with standard protocol. Coronal and sagittal reformatted images were obtained from the axial source images. Images were reviewed on a high-resolution PACS workstation. DICOM images are available. COMPARISON: CT abdomen/pelvis 10/05/24. FINDINGS: No soft tissue wound is evident by CT. Generalized subcutaneous edema throughout the right thigh with skin thickening at the lateral soft tissues. No organized fluid collection. Technically limited overall assessment for abscess on noncontrast evaluation. No soft tissue gas or radiopaque foreign body. Extensive vascular calcifications. Fatty atrophy of the right gluteal musculature. Sequelae of previous right rectus femoris strain. No acute fracture or dislocation. No cortical erosion or osseous destruction. Moderate right hip osteoarthritis. No joint effusion. Nonspecific presacral fat stranding partially imaged and unchanged. IMPRESSION: 1. No soft tissue wound evident by imaging. Generalized subcutaneous edema throughout the right thigh with skin thickening laterally. The appearance has not significantly changed since comparison CT and favored sequela of anasarca/third spacing although cellulitis cannot be definitively excluded. No o rganized fluid collection within the limits of noncontrast evaluation. No soft tissue gas or radiopaque foreign body. 2. No CT evidence of acute osteomyelitis. No acute osseous abnormality. 3. Moderate right hip osteoarthritis All CT scans are performed using dose optimization techniques as appropriate to the performed exam and include at least one of the following: Automated exposure control, adjustment of the mA and/or kV according to size, and the use of iterative reconstruction technique.
[2025-01-20] MEDS: PROTONIX PO SCH (17:24)
[2025-01-20 19:12] LABS: LEGIONELLA URINARY ANTIGEN Negative (Negative); STEP PNEUMO ORGANISM ID Not indicated. (.); STREP PNEUMO BODY FLUID CULT Not indicated. (.)
[2025-01-21 04:55] LABS: IMMATURE GRANULOCYTE # (AUTO) 0.3 (0.0-1.0); IMMATURE GRANULOCYTE % (AUTO) 2.9 % (0.0-5.0); RDW COEFFICIENT OF VARIATION 17.1 % (11.6-14.8)
[2025-01-21 05:08] LABS: CREATININE 1.77 mg/dL (0.60-1.30)
[2025-01-21 05:10] LABS: INR 4.15 SI (0.0-3.9)
--- NOTE | 2025-01-21 08:28 | PCM.PROG ---
Date/Time Seen Date Seen by Provider: 01/21/25 Time Seen by Provider: 08:15 Provider [facility]UL VAL[facility] Chief Complaint Chief Complaint: GEN. WKNESS, CHF EXACERBATION, CAP, AFIB Subjective Subjective: Reports not feeling as fatigued today. HR improved today following holding meds. Still below 60. Nauseated and not wanting to eat breakfast. Objective Appearance: Positive No Apparent Distress, Alert and Oriented x3 and Ill- Appearing Chest/Lungs: Positive Symmetrical With Equal Breath Sounds, Clear to Auscultation Bilaterally and Good Air Movement all 4 Lung Terry; Negative Rales, Rhonci or Wheezes Heart: Positive Pulses Normal, Murmur and Bracycardia GI/: Positive Soft, Nontender, Bowel Sounds Normal and No Distention Musculoskeletal: Positive Not Examined Neurological: Positive Sensation Intact, Motor intact, Reflexes Intact, Alert, Oriented and Other (generalized weakness/deconditioned) Additional Findings: wound to R hip - no surrounding erythema, scant serous drainage Vital Signs Vital Signs: Vital Signs: Last 24 Hours 01/20/25 08:30 01/20/25 10:00 01/20/25 10:18 Temperature 96.9 F L Temperature Source Oral Pulse Rate 61 48 L Respiratory Rate 16 Blood Pressure 118/71 Blood Pressure Mean 86 Blood Pressure Location Left Arm Blood Pressure Position Sitting O2 Sat by Pulse Oximetry 93 L Oxygen Delivery Method Room Air Room Air Weight Telemetry Type Telemetry Monitoring Irregular Telemetry Rate (Approximate) Telemetry Heart Rate EKG QRS Interval Telemetry Strip Reading 01/20/25 13:00 01/20/25 14:00 01/20/25 18:00 Temperature 96.9 F L 96.9 F L Temperature Source Oral Temporal Artery Scan Pulse Rate 62 57 L Respiratory Rate 14 14 Blood Pressure 98/57 L 91/52 L Blood Pressure Mean 70 65 Blood Pressure Location Left Arm Left Arm Blood Pressure Position O2 Sat by Pulse Oximetry 98 98 Oxygen Delivery Method Room Air Room Air Weight Telemetry Type Remote Telemetry Telemetry Monitoring Continues Irregular Telemetry Rate (Approximate) 60-70 BPM Telemetry Heart Rate 69 EKG QRS Interval 0.09 Telemetry Strip Reading A fib 01/20/25 19:00 01/20/25 21:33 01/21/25 01:00 Temperature 97.4 F L Temperature Source Temporal Artery Scan Pulse Rate 58 L Respiratory Rate 18 Blood Pressure 100/52 L Blood Pressure Mean 68 Blood Pressure Location Left Arm Blood Pressure Position Supine O2 Sat by Pulse Oximetry 97 Oxygen Delivery Method Room Air Weight Telemetry Type Remote Telemetry Remote Telemetry Telemetry Monitoring Continues Continues Irregular Telemetry Rate (Approximate) 50-60 BPM Telemetry Heart Rate 50 L 59 L EKG QRS Interval 0.10 0.09 Telemetry Strip Reading AFIB w/ Bradycardia a fib 01/21/25 02:00 01/21/25 05:47 01/21/25 05:47 Temperature 97.2 F L 96.9 F L Temperature Source Temporal Artery Scan Oral Pulse Rate 63 56 L Respiratory Rate 18 18 Blood Pressure 95/82 106/78 Blood Pressure Mean 86 87 Blood Pressure Location Left Arm Left Arm Blood Pressure Position Supine Supine O2 Sat by Pulse Oximetry 96 95 Oxygen Delivery Method Room Air Room Air Weight 73.2 kg Telemetry Type Telemetry Monitoring Irregular Telemetry Rate (Approximate) Telemetry Heart Rate EKG QRS Interval Telemetry Strip Reading Lab Results Lab Results: Lab Results: Last 24 Hours 01/21/25 01/20/25 01/20/25 04:50 08:31 05:06 WBC 8.65 RBC 3.23 L Hgb 9.7 L Hct 31.9 L MCV 98.8 MCH 30.0 MCHC 30.4 L RDW Coeff of Devora 17.1 H Plt Count 223 Immature Gran % (Auto) 2.9 Neut % (Auto) 65.1 Lymph % (Auto) 11.1 [place] % (Auto) 10.4 H Eos % (Auto) 10.2 H Baso % (Auto) 0.3 Neut # (Auto) 5.6 Lymph # (Auto) 1.0 [place] # (Auto) 0.9 Eos # (Auto) 0.9 H Baso # (Auto) 0.0 Immature Gran # (Auto) 0.3 PT 39.3 H D 97.4 H INR 4.15 H* D 10.72 H* Sodium 137.5 Potassium 3.44 L Chloride 99.4 Carbon Dioxide 31.5 H Anion Gap 10.04 BUN 44.1 H Creatinine 1.77 H Estimated GFR (MDRD) 28.00 BUN/Creatinine Ratio 24.91 Glucose 103.4 Calcium 8.42 Total Bilirubin 1.15 AST 21.4 ALT 8.9 Alkaline Phosphatase 54.3 Total Protein 6.51 Albumin 2.99 L Globulin 3.52 Albumin/Globulin Ratio 0.84 CSF Strep pneumoniae Ag Vancomycin Trough 16.313 Digoxin 1.84 Urine Legionella Ag Staphs Organism ID S. pneumoniae Ag Source S. pneumoniae Ag Intrp Ref Test Please Note 01/17/25 20:09 WBC RBC Hgb Hct MCV MCH MCHC RDW Coeff of Devora Plt Count Immature Gran % (Auto) Neut % (Auto) Lymph % (Auto) [place] % (Auto) Eos % (Auto) Baso % (Auto) Neut # (Auto) Lymph # (Auto) [place] # (Auto) Eos # (Auto) Baso # (Auto) Immature Gran # (Auto) PT INR Sodium Potassium Chloride Carbon Dioxide Anion Gap BUN Creatinine Estimated GFR (MDRD) BUN/Creatinine Ratio Glucose Calcium Total Bilirubin AST ALT Alkaline Phosphatase Total Protein Albumin Globulin Albumin/Globulin Ratio CSF Strep pneumoniae Ag Not indicated. Vancomycin Trough Digoxin Urine Legionella Ag Negative Staphs Organism ID Not indicated. S. pneumoniae Ag Source Urine S. pneumoniae Ag Intrp Positive H Ref Test Please Note Comment Additional Comments Additional Comments: I have independently reviewed and interpreted the labs/EKGs/imaging ordered during this hospital stay. I have reviewed outside records that are available in our EMR that pertain to medical stay including imaging/notes/labs from previous visits. Active Medications Active Medications: Medications Generic Name Dose Route Start Last Admin Trade Name Freq PRN Reason Stop Dose Admin Acetaminophen 650 mg 01/17/25 18:03 Acetaminophen 325 Mg Tablet PO Q4H PRN Mild Pain Alprazolam 0.5 mg 01/17/25 20:32 01/18/25 20:11 Alprazolam 0.5 Mg Tablet PO 0.5 mg BID PRN Administration Anxiety Calamine/Phenol 1 applic 01/17/25 20:31 Menthol/Zinc Oxide 113 Gm Ointment TP PRN PRN Rash Digoxin 125 mcg 01/18/25 09:00 01/20/25 10:18 Digoxin 125 Mcg Tablet PO Not Given On Hold: 01/20/25 19:11 DAILY GILBERT Empagliflozin 10 mg 01/18/25 09:00 01/20/25 08:12 Empagliflozin 10 Mg Tablet PO 10 mg DAILY GILBERT Administration Famotidine 20 mg 01/18/25 11:30 01/20/25 20:42 Famotidine Inj 20 Mg/2 Ml Vial IVP 20 mg Q12HR GILBERT Administration Ferrous Sulfate 324 mg 01/18/25 09:00 01/20/25 08:12 Ferrous Sulfate 324 Mg Tablet. PO 324 mg DAILY GILBERT Administration Furosemide 40 mg 01/19/25 17:00 01/20/25 17:23 Furosemide 40 Mg Tablet PO 40 mg On Hold: 01/20/25 20:57 BIDAC2 GILBERT Administration Ertapenem 1 gm/ Sodium 50 mls @ 100 mls/hr 01/20/25 09:00 01/20/25 10:46 Chloride IV 01/26/25 09:29 100 mls/hr DAILY GILBERT Administration VANCOMYCIN/WATER FOR INJ (PEG) 750 mg in 150 mls @ 150 mls/hr 01/20/25 09:30 01/20/25 11:54 Vancomycin 750 Mg/150 Ml Bag IV 01/23/25 09:29 150 mls/hr DAILY GILBERT Administration Metoclopramide HCl 5 mg 01/18/25 13:49 01/18/25 14:17 Metoclopramide Hcl 10 Mg/2 Ml IVP 5 mg Q6H PRN Administration Nausea / Vomiting Metoprolol Tartrate 12.5 mg 01/19/25 21:00 01/20/25 11:29 Metoprolol Tartrate 25 Mg Tablet PO Not Given On Hold: 01/20/25 19:11 BID GILBERT Montelukast Sodium 10 mg 01/18/25 09:00 01/20/25 08:11 Montelukast Sodium 10 Mg Tablet PO 10 mg DAILY GILBERT Administration Ondansetron HCl 4 mg 01/18/25 12:00 01/21/25 05:28 Ondansetron Hcl 4 Mg Tablet PO 4 mg Q6HR GILBERT Administration Pantoprazole Sodium 40 mg 01/20/25 17:00 01/21/25 05:28 Pantoprazole Sodium 40 Mg Tablet. PO 40 mg BIDAC2 GILBERT Administration Potassium Chloride 20 meq 01/18/25 07:30 01/21/25 07:34 Potassium Chloride 20 Meq Tab PO 20 meq DAILYWM2 GILBERT Administration Saccharomyces Boulardii 250 mg 01/18/25 21:00 01/20/25 20:42 Saccharomyces Boulardii 250 Mg Capsule PO 250 mg BID GILBERT Administration Sertraline HCl 50 mg 01/18/25 09:00 01/20/25 08:12 Sertraline Hcl 50 Mg Tablet PO 50 mg DAILY GILBERT Administration Sodium Chloride 1 syr 01/17/25 16:34 01/18/25 17:19 0.9% Sodium Chloride 10 Ml Disp.Syrin IVF 1 syr PRN PRN Administration To flush IV Sodium Chloride 1 syr 01/18/25 21:00 01/21/25 05:28 0.9% Sodium Chloride 10 Ml Disp.Syrin IVF 1 syr Q8HR GILBERT Administration Tiotropium [place] 1 cap 01/18/25 09:00 01/20/25 08:13 Tiotropium [place] 18 Mcg Cap.W.Dev IH 1 cap DAILY GILBERT Administration Tramadol HCl 50 mg 01/17/25 20:32 Tramadol Hcl 50 Mg Tablet PO BID PRN Pain Plan Plan: 1. CAP due to strep pneumo - nebs prn, legionella negative, MRSA positive, no sputum production, PSI IV, initially covered with Rocephin and doxy, due to #2 and wound culture growth escalated to invanz and vanc 2. UTI - urine culture report of ESBL + Ecoli resistent to rocephin, initiated Merrem for coverage yesterday - switching to invanz for better coverage of all infectious sources 3. R hip wound infection - positive MRSA, culture growth or ESBL+Ecoli and Rothia Kristinae, covering with invanz and vanc, pharmacy recs 7-10 days of antibiotic therapy, CT negative 4. Acute Diastolic Heart Failure with Several Mitral Regurgitation Exacerbation - Resolved, EF normal 10/24, supposed to follow with cards outpatient for repeat echo, I&O, daily weight, 1800 fluid restriction, BP soft yesterday, renal function increased, holding lasix today 5. Supratherapeutic INR - Improving, down to 4 today, received vitamin K yesterday, continue to hold coumadin, will recheck INR daily until returns to appropriate level, no s/sx of active bleeding 6. Iron Deficiency Anemia - hemoglobin stable, continue iron supplementation, follows with Dr. Tello 7. 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 Afib - bradycardic, digoxin level normal, holding home meds due to bradycardia at this time will restart when necessary 9. Weakness/Frequent Falls/Deconditioning - PT/OT DVT Prophylaxis: Coumadin - holding due to supratherapeutic INR Dispo: Plan for swingbed once medically stable prior to discharge to assisted living due to inability to care for self safely at home. Review Statement Review Statement: I have personally discussed and reviewed the patient's visit/currently labs/imaging/decision making with Dr. Velasquez, my supervising attending. Greater that 50 minutes spent with patient, 50% of the time spent with this patient was devoted to counseling and coordination of care.
[2025-01-22 05:24] LABS: IMMATURE GRANULOCYTE # (AUTO) 0.2 (0.0-1.0); IMMATURE GRANULOCYTE % (AUTO) 1.6 % (0.0-5.0); RDW COEFFICIENT OF VARIATION 17.2 % (11.6-14.8)
[2025-01-22 05:35] LABS: INR 1.99 SI (0.0-3.9)
[2025-01-22 05:36] LABS: CREATININE 1.85 mg/dL (0.60-1.30)
[2025-01-22] MEDS: MIRALAX PO PRN (09:48)
--- NOTE | 2025-01-22 09:57 | PCM.PROG ---
Date/Time Seen Date Seen by Provider: 01/22/25 Time Seen by Provider: 09:00 Provider Provider: SAUL VALLEJO, [facility] Chief Complaint Chief Complaint: GEN. WKNESS, CHF EXACERBATION, CAP, AFIB Subjective Subjective: Reports feeling better today. Still does not have much of an appetite. Hopeful to take a shower today. HR improved. INR improved. Objective Appearance: Positive No Apparent Distress, Alert and Oriented x3 and Ill- Appearing Chest/Lungs: Positive Symmetrical With Equal Breath Sounds, Clear to Auscultation Bilaterally and Good Air Movement all 4 Lung Terry; Negative Rales, Rhonci or Wheezes Heart: Positive Pulses Normal, Murmur and Irregular Rhythm GI/: Positive Soft, Nontender, Bowel Sounds Normal and No Distention Musculoskeletal: Positive Other (trace edema BLE) Neurological: Positive Sensation Intact, Motor intact, Reflexes Intact, Alert, Oriented and Other (generalized weakness) Additional Findings: R hip wound: no surrounding erythema, purulent discharge present Vital Signs Vital Signs: Vital Signs: Last 24 Hours 01/21/25 10:00 01/21/25 13:00 01/21/25 14:00 Temperature 96.8 F L 96.9 F L Temperature Source Oral Temporal Artery Scan Pulse Rate 74 72 Respiratory Rate 14 16 Blood Pressure 125/71 108/71 Blood Pressure Mean 89 83 Blood Pressure Location Left Arm Left Arm Blood Pressure Position O2 Sat by Pulse Oximetry 97 100 Oxygen Delivery Method Room Air Room Air Height Weight Telemetry Type Remote Telemetry Telemetry Monitoring Continues Irregular Telemetry Rate (Approximate) Telemetry Heart Rate 74 EKG QRS Interval 0.10 Telemetry Strip Reading A fib 01/21/25 18:00 01/21/25 18:34 01/21/25 19:00 Temperature 96.8 F L Temperature Source Temporal Artery Scan Pulse Rate 66 Respiratory Rate 16 Blood Pressure 118/76 Blood Pressure Mean 90 Blood Pressure Location Left Arm Blood Pressure Position O2 Sat by Pulse Oximetry 97 Oxygen Delivery Method Room Air Height 5 ft 4 in Weight 73.2 kg Telemetry Type Remote Telemetry Telemetry Monitoring Continues Irregular Telemetry Rate (Approximate) 50-60 BPM Telemetry Heart Rate 59 L EKG QRS Interval 0.10 Telemetry Strip Reading AFIB 01/21/25 21:28 01/22/25 01:00 01/22/25 02:00 Temperature 97.3 F L 97 F L Temperature Source Temporal Artery Scan Temporal Artery Scan Pulse Rate 72 61 Respiratory Rate 18 18 Blood Pressure 100/69 99/62 Blood Pressure Mean 79 74 Blood Pressure Location Right Arm Left Arm Blood Pressure Position Supine Supine O2 Sat by Pulse Oximetry 98 97 Oxygen Delivery Method Room Air Room Air Height Weight Telemetry Type Remote Telemetry Telemetry Monitoring Continues Irregular Telemetry Rate (Approximate) 60-70 BPM Telemetry Heart Rate 60 EKG QRS Interval 0.10 Telemetry Strip Reading AFIB 01/22/25 05:39 01/22/25 05:39 01/22/25 07:00 Temperature 97.9 F Temperature Source Temporal Artery Scan Pulse Rate 60 Respiratory Rate 18 Blood Pressure 113/59 L Blood Pressure Mean 77 Blood Pressure Location Right Arm Blood Pressure Position Supine O2 Sat by Pulse Oximetry 98 Oxygen Delivery Method Room Air Height Weight 72.5 kg Telemetry Type Remote Telemetry Telemetry Monitoring Continues Irregular Telemetry Rate (Approximate) 60-70 BPM Telemetry Heart Rate 61 EKG QRS Interval 0.09 Telemetry Strip Reading A fib Lab Results Lab Results: Lab Results: Last 24 Hours 01/22/25 01/22/25 08:27 05:20 WBC 9.13 RBC 3.31 L Hgb 9.9 L Hct 32.8 L MCV 99.1 H MCH 29.9 MCHC 30.2 L RDW Coeff of Devora 17.2 H Plt Count 210 Immature Gran % (Auto) 1.6 Neut % (Auto) 61.9 Lymph % (Auto) 10.0 [place] % (Auto) 8.1 Eos % (Auto) 18.1 H Baso % (Auto) 0.3 Neut # (Auto) 5.7 Lymph # (Auto) 0.9 [place] # (Auto) 0.7 Eos # (Auto) 1.7 H Baso # (Auto) 0.0 Immature Gran # (Auto) 0.2 PT 19.8 H D INR 1.99 D Sodium 138.1 Potassium 3.56 Chloride 99.0 Carbon Dioxide 32.7 H Anion Gap 9.96 BUN 39.4 H Creatinine 1.85 H Estimated GFR (MDRD) 27.00 BUN/Creatinine Ratio 21.29 Glucose 99.4 Calcium 8.52 Total Bilirubin 1.22 AST 22.1 ALT 9.2 Alkaline Phosphatase 61.6 Total Protein 6.65 Albumin 3.08 L Globulin 3.57 Albumin/Globulin Ratio 0.86 Vancomycin Trough 22.181 H* Additional Comments Additional Comments: I have independently reviewed and interpreted the labs/EKGs/imaging ordered during this hospital stay. I have reviewed outside records that are available in our EMR that pertain to medical stay including imaging/notes/labs from previous visits. Active Medications Active Medications: Medications Generic Name Dose Route Start Last Admin Trade Name Freq PRN Reason Stop Dose Admin Acetaminophen 650 mg 01/17/25 18:03 Acetaminophen 325 Mg Tablet PO Q4H PRN Mild Pain Alprazolam 0.5 mg 01/17/25 20:32 01/18/25 20:11 Alprazolam 0.5 Mg Tablet PO 0.5 mg BID PRN Administration Anxiety Calamine/Phenol 1 applic 01/17/25 20:31 Menthol/Zinc Oxide 113 Gm Ointment TP PRN PRN Rash Digoxin 125 mcg 01/18/25 09:00 01/20/25 10:18 Digoxin 125 Mcg Tablet PO Not Given On Hold: 01/20/25 19:11 DAILY GILBERT Empagliflozin 10 mg 01/18/25 09:00 01/22/25 08:04 Empagliflozin 10 Mg Tablet PO 10 mg DAILY GILBERT Administration Famotidine 20 mg 01/18/25 11:30 01/22/25 08:04 Famotidine Inj 20 Mg/2 Ml Vial IVP 20 mg Q12HR GILBERT Administration Ferrous Sulfate 324 mg 01/18/25 09:00 01/22/25 08:04 Ferrous Sulfate 324 Mg Tablet. PO 324 mg DAILY GILBERT Administration Furosemide 40 mg 01/19/25 17:00 01/20/25 17:23 Furosemide 40 Mg Tablet PO 40 mg On Hold: 01/20/25 20:57 BIDAC2 GILBERT Administration Ertapenem 1 gm/ Sodium 50 mls @ 100 mls/hr 01/20/25 09:00 01/22/25 08:05 Chloride IV 01/26/25 09:29 100 mls/hr DAILY GILBERT Administration VANCOMYCIN/WATER FOR INJ (PEG) 1.25 gm in 250 mls @ 250 mls/hr 01/23/25 09:00 Vancomycin 1.25 Gm/250 Ml Bag IV 01/26/25 08:59 Q48H GILBERT Metoclopramide HCl 5 mg 01/18/25 13:49 01/18/25 14:17 Metoclopramide Hcl 10 Mg/2 Ml IVP 5 mg Q6H PRN Administration Nausea / Vomiting Metoprolol Tartrate 12.5 mg 01/19/25 21:00 01/20/25 11:29 Metoprolol Tartrate 25 Mg Tablet PO Not Given On Hold: 01/20/25 19:11 BID GILBERT Montelukast Sodium 10 mg 01/18/25 09:00 01/22/25 08:04 Montelukast Sodium 10 Mg Tablet PO 10 mg DAILY GILBERT Administration Ondansetron HCl 4 mg 01/18/25 12:00 01/22/25 05:18 Ondansetron Hcl 4 Mg Tablet PO 4 mg Q6HR GILBERT Administration Pantoprazole Sodium 40 mg 01/20/25 17:00 01/22/25 05:18 Pantoprazole Sodium 40 Mg Tablet.Dr PO 40 mg BIDAC2 GILBERT Administration Polyethylene Glycol 17 gm 01/22/25 09:40 01/22/25 09:48 Polyethylene Glycol 17 Gm Powd.Pack PO 17 gm DAILY PRN Administration Constipation Potassium Chloride 20 meq 01/18/25 07:30 01/22/25 08:04 Potassium Chloride 20 Meq Tab PO 20 meq DAILYWM2 GILEBRT Administration Saccharomyces Boulardii 250 mg 01/18/25 21:00 01/22/25 08:04 Saccharomyces Boulardii 250 Mg Capsule PO 250 mg BID GILBERT Administration Sertraline HCl 50 mg 01/18/25 09:00 01/22/25 08:04 Sertraline Hcl 50 Mg Tablet PO 50 mg DAILY GILBERT Administration Sodium Chloride 1 syr 01/17/25 16:34 01/18/25 17:19 0.9% Sodium Chloride 10 Ml Disp.Syrin IVF 1 syr PRN PRN Administration To flush IV Sodium Chloride 1 syr 01/18/25 21:00 01/22/25 05:18 0.9% Sodium Chloride 10 Ml Disp.Syrin IVF 1 syr Q8HR GILBERT Administration Tiotropium [place] 1 cap 01/18/25 09:00 01/22/25 08:03 Tiotropium [place] 18 Mcg Cap.W.Dev IH 1 cap DAILY GILBERT Administration Tramadol HCl 50 mg 01/17/25 20:32 Tramadol Hcl 50 Mg Tablet PO BID PRN Pain Plan Plan: 1. CAP due to strep pneumo - nebs prn, legionella negative, MRSA positive, no sputum production, PSI IV, initially covered with Rocephin and doxy, due to #2 and wound culture growth escalated to invanz and vanc 2. UTI - urine culture report of ESBL + Ecoli resistent to rocephin, initiated Merrem for coverage yesterday - switching to invanz for better coverage of all infectious sources 3. R hip wound infection - positive MRSA, culture growth or ESBL+Ecoli and Rothia Kristinae, covering with invanz and vanc, pharmacy recs 7-10 days of antibiotic therapy, CT negative, cleanse daily with Hibiclens and saline, cover while draining 4. Acute Diastolic Heart Failure with Several Mitral Regurgitation Exacerbation - Resolved, EF normal 10/24, supposed to follow with cards outpatient for repeat echo, I&O, daily weight, 1800 fluid restriction, BP soft yesterday, renal function increased, holding lasix - will restart when able 5. Supratherapeutic INR - Resolved, received vitamin K x1, held coumadin, no s/sx of active bleeding 6. Iron Deficiency Anemia - hemoglobin stable, continue iron supplementation, follows with Dr. Tello 7. 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 Afib - bradycardic, digoxin level normal, holding home meds due to bradycardia at this time will restart when necessary, feel that patient would be better suited for eliquis given supratherapeutic INR, will start tomorrow 9. Weakness/Frequent Falls/Deconditioning - PT/OT DVT Prophylaxis: Eliquis Dispo: Plan for swingbed once medically stable prior to discharge to assisted living due to inability to care for self safely at home. Review Statement Review Statement: I have personally discussed and reviewed the patient's visit/currently labs/imaging/decision making with Dr. Velasquez, my supervising attending. Greater that 50 minutes spent with patient, 50% of the time spent with this patient was devoted to counseling and coordination of care.
[2025-01-22] MEDS: ZOFRAN TAB PO PRN (21:32)
[2025-01-22] MEDS: ULTRAM PO PRN (21:41)
[2025-01-23 06:00] LABS: IMMATURE GRANULOCYTE # (AUTO) 0.1 (0.0-1.0); IMMATURE GRANULOCYTE % (AUTO) 1.1 % (0.0-5.0); RDW COEFFICIENT OF VARIATION 17.7 % (11.6-14.8)
[2025-01-23] MEDS ORDERED: LASIX TAB PO SCH (06:00)
[2025-01-23 06:22] LABS: CREATININE 1.69 mg/dL (0.60-1.30)
[2025-01-23] MEDS: VANCOMYCIN 1.25 GM/250 ML BAG 1.25 GM/250 ML BAG IV SCH (09:16)
--- NOTE | 2025-01-23 16:17 | PCM.PROG ---
Date/Time Seen Date Seen by Provider: 01/23/25 Time Seen by Provider: 08:45 Provider Provider: STEPHY ECHAVARRIA PA-C, [facility] Chief Complaint Chief Complaint: GEN. WKNESS, CHF EXACERBATION, CAP, AFIB Subjective Subjective: Patient states overall she is feeling better. She has been working with therapy. Feels generally weak. Objective Appearance: Positive No Apparent Distress, Alert and Oriented x3 and Ill- Appearing Chest/Lungs: Positive Symmetrical With Equal Breath Sounds, Clear to Auscultation Bilaterally and Good Air Movement all 4 Lung Terry; Negative Rales, Rhonci or Wheezes Heart: Positive Pulses Normal, Murmur and Irregular Rhythm GI/: Positive Soft, Nontender, Bowel Sounds Normal and No Distention Musculoskeletal: Positive Other (trace edema BLE) Neurological: Positive Sensation Intact, Motor intact, Alert, Oriented and Other (generalized weakness) Additional Findings: R hip wound: no surrounding erythema, purulent discharge present Vital Signs Vital Signs: Vital Signs: Last 24 Hours 01/22/25 18:00 01/22/25 19:00 01/22/25 21:14 Temperature 96.4 F L 97.2 F L Temperature Source Temporal Artery Scan Tympanic Pulse Rate 60 71 Respiratory Rate 14 15 Blood Pressure 97/55 L 107/65 Blood Pressure Mean 69 79 Blood Pressure Location Left Arm Left Arm Blood Pressure Position Supine O2 Sat by Pulse Oximetry 100 100 Oxygen Delivery Method Room Air Room Air Weight Telemetry Type Remote Telemetry Telemetry Monitoring Continues Irregular Telemetry Rate (Approximate) 50-60 BPM Telemetry Heart Rate 58 L EKG QRS Interval 0.06 Telemetry Strip Reading a fib 01/23/25 01:00 01/23/25 02:00 01/23/25 05:45 Temperature 98.6 F 96.7 F L Temperature Source Tympanic Tympanic Pulse Rate 54 L 76 Respiratory Rate 16 Blood Pressure 103/68 101/61 Blood Pressure Mean 79 74 Blood Pressure Location Left Arm Left Arm Blood Pressure Position Supine Supine O2 Sat by Pulse Oximetry 95 95 Oxygen Delivery Method Room Air Room Air Weight Telemetry Type Remote Telemetry Telemetry Monitoring Continues Irregular Telemetry Rate (Approximate) Telemetry Heart Rate 64 EKG QRS Interval 0.05 L Telemetry Strip Reading A FIB 01/23/25 06:00 01/23/25 07:00 01/23/25 13:00 Temperature Temperature Source Pulse Rate Respiratory Rate Blood Pressure Blood Pressure Mean Blood Pressure Location Blood Pressure Position O2 Sat by Pulse Oximetry Oxygen Delivery Method Weight 94.6 kg Telemetry Type Remote Telemetry Remote Telemetry Telemetry Monitoring Continues Continues Irregular Telemetry Rate (Approximate) 50-60 BPM 60-70 BPM Telemetry Heart Rate EKG QRS Interval 0.08 0.09 Telemetry Strip Reading afib afib Lab Results Lab Results: Lab Results: Last 24 Hours 01/23/25 05:52 WBC 8.71 RBC 3.01 L Hgb 9.1 L Hct 29.9 L MCV 99.3 H MCH 30.2 MCHC 30.4 L RDW Coeff of Devora 17.7 H Plt Count 178 Immature Gran % (Auto) 1.1 Neut % (Auto) 53.6 Lymph % (Auto) 10.8 [place] % (Auto) 9.8 Eos % (Auto) 24.0 H Baso % (Auto) 0.7 Neut # (Auto) 4.7 Lymph # (Auto) 0.9 [place] # (Auto) 0.9 Eos # (Auto) 2.1 H Baso # (Auto) 0.1 Immature Gran # (Auto) 0.1 Sodium 138.1 Potassium 3.77 Chloride 101.9 Carbon Dioxide 33.1 H Anion Gap 6.87 BUN 36.4 H Creatinine 1.69 H Estimated GFR (MDRD) 30.00 BUN/Creatinine Ratio 21.53 Glucose 90.3 Calcium 8.36 L Total Bilirubin 1.14 AST 21.2 ALT 7.6 Alkaline Phosphatase 53.7 Total Protein 6.01 L Albumin 2.85 L Globulin 3.16 Albumin/Globulin Ratio 0.90 Additional Comments Additional Comments: I have independently reviewed and interpreted the labs/EKGs/imaging ordered during this hospital stay. I have reviewed outside records that are available in our EMR that pertain to medical stay including imaging/notes/labs from previous visits. Active Medications Active Medications: Medications Generic Name Dose Route Start Last Admin Trade Name Freq PRN Reason Stop Dose Admin Acetaminophen 650 mg 01/17/25 18:03 Acetaminophen 325 Mg Tablet PO Q4H PRN Mild Pain Alprazolam 0.5 mg 01/17/25 20:32 01/22/25 21:40 Alprazolam 0.5 Mg Tablet PO 0.5 mg BID PRN Administration Anxiety Apixaban 5 mg 01/23/25 21:00 Apixaban 5 Mg Tab PO BID GILBERT Calamine/Phenol 1 applic 01/17/25 20:31 Menthol/Zinc Oxide 113 Gm Ointment TP PRN PRN Rash Digoxin 125 mcg 01/18/25 09:00 01/20/25 10:18 Digoxin 125 Mcg Tablet PO Not Given On Hold: 01/20/25 19:11 DAILY GILBERT Empagliflozin 10 mg 01/18/25 09:00 01/23/25 09:15 Empagliflozin 10 Mg Tablet PO 10 mg DAILY GILBERT Administration Famotidine 20 mg 01/18/25 11:30 01/23/25 09:15 Famotidine Inj 20 Mg/2 Ml Vial IVP 20 mg Q12HR GILBERT Administration Ferrous Sulfate 324 mg 01/18/25 09:00 01/23/25 09:15 Ferrous Sulfate 324 Mg Tablet.Dr PO 324 mg DAILY GILBERT Administration Furosemide 40 mg 01/23/25 06:00 Furosemide 40 Mg Tablet PO On Hold: 01/23/25 06:00 QDAC2 GILBERT Ertapenem 1 gm/ Sodium 50 mls @ 100 mls/hr 01/20/25 09:00 01/23/25 09:16 Chloride IV 01/26/25 09:29 100 mls/hr DAILY GILBERT Administration VANCOMYCIN/WATER FOR INJ (PEG) 1.25 gm in 250 mls @ 250 mls/hr 01/23/25 09:00 01/23/25 11:39 Vancomycin 1.25 Gm/250 Ml Bag IV 01/26/25 08:59 250 mls/hr Q48H GILBERT Administration Metoclopramide HCl 5 mg 01/18/25 13:49 01/18/25 14:17 Metoclopramide Hcl 10 Mg/2 Ml IVP 5 mg Q6H PRN Administration Nausea / Vomiting Metoprolol Tartrate 12.5 mg 01/19/25 21:00 01/20/25 11:29 Metoprolol Tartrate 25 Mg Tablet PO Not Given On Hold: 01/20/25 19:11 BID GILBERT Montelukast Sodium 10 mg 01/18/25 09:00 01/23/25 09:15 Montelukast Sodium 10 Mg Tablet PO 10 mg DAILY GILBERT Administration Ondansetron HCl 4 mg 01/22/25 13:21 01/22/25 21:32 Ondansetron Hcl 4 Mg Tablet PO 4 mg Q6HR PRN Administration Nausea / Vomiting Pantoprazole Sodium 40 mg 01/20/25 17:00 01/23/25 16:15 Pantoprazole Sodium 40 Mg Tablet.Dr PO 40 mg BIDAC2 GILBERT Administration Polyethylene Glycol 17 gm 01/22/25 09:40 01/22/25 09:48 Polyethylene Glycol 17 Gm Powd.Pack PO 17 gm DAILY PRN Administration Constipation Potassium Chloride 20 meq 01/18/25 07:30 01/23/25 09:15 Potassium Chloride 20 Meq Tab PO 20 meq DAILYWM2 GILBERT Administration Saccharomyces Boulardii 250 mg 01/18/25 21:00 01/23/25 09:15 Saccharomyces Boulardii 250 Mg Capsule PO 250 mg BID GILBERT Administration Sertraline HCl 50 mg 01/18/25 09:00 01/23/25 09:15 Sertraline Hcl 50 Mg Tablet PO 50 mg DAILY GILBERT Administration Sodium Chloride 1 syr 01/17/25 16:34 01/18/25 17:19 0.9% Sodium Chloride 10 Ml Disp.Syrin IVF 1 syr PRN PRN Administration To flush IV Sodium Chloride 1 syr 01/18/25 21:00 01/23/25 14:30 0.9% Sodium Chloride 10 Ml Disp.Syrin IVF 1 syr Q8HR GILBERT Administration Tiotropium [place] 1 cap 01/18/25 09:00 01/23/25 09:17 Tiotropium [place] 18 Mcg Cap.W.Dev IH 1 cap DAILY GILBERT Administration Tramadol HCl 50 mg 01/17/25 20:32 01/22/25 21:41 Tramadol Hcl 50 Mg Tablet PO 50 mg BID PRN Administration Pain Plan Plan: 1. CAP due to strep pneumo - nebs prn, legionella negative, MRSA positive, no sputum production, PSI IV, initially covered with Rocephin and doxy, due to #2 and wound culture growth escalated to invanz and vanc 2. UTI due to ESBL+ e coli - urine culture report of ESBL + Ecoli, continue invanz 3. R hip wound infection due to ESBL+ e coli and rothia kristinae - culture growth of ESBL+Ecoli and Rothia Kristinae, covering with invanz and vanc, pharmacy recs 7-10 days of antibiotic therapy, CT negative, cleanse daily with Hibiclens and saline, cover while draining 4. Acute Diastolic Heart Failure with Several Mitral Regurgitation Exacerbation - Resolved, EF normal 10/24, supposed to follow with cards outpatient for repeat echo, I&O, daily weight, 1800 fluid restriction, lasix restarted today 5. Supratherapeutic INR - Resolved, received vitamin K x1, held coumadin, no s/sx of active bleeding, transitioned to eliquis due to noncompliance 6. Iron Deficiency Anemia - hemoglobin stable, continue iron supplementation, follows with Dr. Tello 7. 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 Afib - bradycardic, digoxin level normal, holding home meds due to bradycardia at this time will restart when necessary, feel that patient would be better suited for eliquis given supratherapeutic INR, started today 9. Weakness/Frequent Falls/Deconditioning - PT/OT Today is day #5 for antibiotics DVT Prophylaxis: Eliquis Dispo: Plan for swingbed once medically stable for ptot and antibiotics Review Statement Review Statement: I have personally discussed and reviewed the patient's visit/currently labs/imaging/decision making with Dr. Velasquez, my supervising attending. Greater that 50 minutes spent with patient, 50% of the time spent with this patient was devoted to counseling and coordination of care.
[2025-01-23] MEDS: ELIQUIS PO SCH (20:23)
[2025-01-24 01:46] VITALS: TEMP 96.6
[2025-01-24 05:25] LABS: IMMATURE GRANULOCYTE # (AUTO) 0.1 (0.0-1.0); IMMATURE GRANULOCYTE % (AUTO) 1.0 % (0.0-5.0); RDW COEFFICIENT OF VARIATION 17.8 % (11.6-14.8)
[2025-01-24 05:41] VITALS: BP 97/52; PULSE 75; RESP 24
[2025-01-24 05:41] LABS: CREATININE 1.67 mg/dL (0.60-1.30)
[2025-01-24 15:13] LABS: STREP PNEUMO AG Positive (Negative)
--- NOTE | 2025-01-24 16:08 | DCSUM ---
Admission Date Admission Date: 01/17/25 Discharge Date Discharge Date: 01/24/25 Admission Diagnosis Admission Diagnosis: 1. CAP 2. UTI Discharge Diagnosis Discharge Diagnosis: 1. CAP due to strep pneumo 2. UTI due to ESBL+ e coli 3. R hip wound infection due to ESBL+ e coli and rothia kristinae 4. Acute Diastolic Heart Failure with Several Mitral Regurgitation Exacerbation 5. Supratherapeutic INR - Resolved 6. Iron Deficiency Anemia 7. Rectosigmoid polyp 8. Afib 9. Weakness/Frequent Falls/Deconditioning Hospital Provider Hospital Provider: STEPHY ECHAVARRIA PA-C, [facility] Primary Care Physician Primary Care Physician: ANNA CRANE APRN Summary of History and Physical Summary of History and Physical: 69 yo female with pmh of CHF, Afib, Anemia, Asthmatic Bronchitis, and colon mass presented to the ER for weakness. Per patient, she has fallen multiple times in the home due to profound weakness. States she gets up she is able to walk but has difficulties being able to push up out of the bed or chair and then becomes too weak to walk household distances. She went to see PCP yesterday and was unable to get out of the car. PCP then sent to ER for further evaluation. Found to have pneumonia and UTI. INR supratherapeutic at 8, BNP also elevated at 8400. She was given lasix, steroids, and cefepime. Admitted to med/surg. Today, she reports continued generalized weakness. No specific complaints. Does report inability to control her bladder. Denies any cough or sob. Lower extremity swelling but not as bad as they normally are. Later stated she has been nauseated after taking some of her medications at home so she hasn't been taking them. Patient states she is going to [facility] as of January 30 due to need for closer supervision. Hospital Course Subjective: Patient was initially covered with Rocephin and doxycycline for CAP and UTI. Strep pneumo urine antigen came back positive. Urine culture came back ESBL positive E. coli. Also she has been dealing with some wounds on bilateral hips. Right wound was found to be draining and was swabbed. It was positive for ESBL E. coli as well and rothia kristinae. CT of right hip was negative for any acute findings otherwise. Patient's antibiotics were escalated to Invanz and vancomycin. She was also diuresed some but then became slightly hypotensive and Lasix was held. She has been on fluid restriction. Her INR was initially 8 and continue to trend up before normalizing. She did have to receive a dose of vitamin K. Patient is historically noncompliant with warfarin and INR checks. Will switch to Eliquis due to her noncompliance. She was also noted to be bradycardic. Her digoxin and metoprolol were held. She has continued to be on the low end of normal in regards to her heart rate. Overall she has improved but she has been very weak. Feel skilled therapy would benefit her prior to returning home. Will admit to swing bed today. Appearance: Pleasant, No Apparent Distress and Alert HEENT: Supple CVS: Other (+murmur, rate controlled ) Abdomen: Soft, Non-Tender and No Distention Respiratory: No Accessory Muscle Use Extremities: No Edema Additional Findings: wounds to polina hips noted with mild drainage, no surrounding erythema or induration noted Vital Signs: Most Recent Vital Signs Temperature 96.6 F L 01/24/25 05:40 Temperature Source Tympanic 01/24/25 05:40 Temperature Source Temporal Artery Scan 01/17/25 16:27 Pulse Rate 75 01/24/25 05:40 Respiratory Rate 24 H 01/24/25 05:40 Blood Pressure 97/52 L 01/24/25 05:40 Blood Pressure Mean 67 01/24/25 05:40 Blood Pressure Left Arm 116/58 01/17/25 20:08 Blood Pressure Location Left Arm 01/24/25 05:40 Blood Pressure Position Supine 01/24/25 05:40 O2 Sat by Pulse Oximetry 91 L 01/24/25 05:40 Oxygen Delivery Method Room Air 01/24/25 05:40 Height 5 ft 4 in 01/21/25 18:34 Weight 71.2 kg 01/24/25 05:45 Telemetry Type Remote Telemetry 01/24/25 07:00 Telemetry Monitoring Continues 01/24/25 07:00 Irregular Telemetry Rate (Approximate) 60-70 BPM 01/24/25 07:00 Telemetry Heart Rate 64 01/24/25 07:00 EKG QRS Interval 0.06 01/24/25 07:00 Telemetry Strip Reading AFIB 01/24/25 07:00 Imaging: EXAM: CT RIGHT HIP WITHOUT CONTRAST. HISTORY: Right hip pain, wound infection. TECHNIQUE: CT scan of the right hip without intravenous contrast was performed with standard protocol. Coronal and sagittal reformatted images were obtained from the axial source images. Images were reviewed on a high-resolution PACS workstation. DICOM images are available. COMPARISON: CT abdomen/pelvis 10/05/24. FINDINGS: No soft tissue wound is evident by CT. Generalized subcutaneous edema throughout the right thigh with skin thickening at the lateral soft tissues. No organized fluid collection. Technically limited overall assessment for abscess on noncontrast evaluation. No soft tissue gas or radiopaque foreign body. Extensive vascular calcifications. Fatty atrophy of the right gluteal musculature. Sequelae of previous right rectus femoris strain. No acute fracture or disl ocation. No cortical erosion or osseous destruction. Moderate right hip osteoarthritis. No joint effusion. Nonspecific presacral fat stranding partially imaged and unchanged. IMPRESSION: 1. No soft tissue wound evident by imaging. Generalized subcutaneous edema throughout the right thigh with skin thickening laterally. The appearance has not significantly changed since comparison CT and favored sequela of anasarca/third spacing although cellulitis cannot be definitively excluded. No organized fluid collection within the limits of noncontrast evaluation. No soft tissue gas or radiopaque foreign body. 2. No CT evidence of acute osteomyelitis. No acute osseous abnormality. 3. Moderate right hip osteoarthritis EXAM: CHEST RADIOGRAPH TECHNIQUE: Single frontal chest radiograph. HISTORY: Weakness. COMPARISON: 10/10/2024. FINDINGS: Mild atelectasis or pneumonia at the right lung base, worse than seen previously. Lungs are otherwise clear The heart is enlarged. There is calcification in the aorta consistent with atherosclerosis. There is no pleural effusion. There is no pneumothorax. IMPRESSION: 1. Mild right basilar atelectasis or pneumonia, worse than seen previously. 2. Atherosclerosis. Cardiomegaly. 3. Otherwise unremarkable chest radiograph. Lab Results Last 24 Hours: 01/24/25 01/17/25 04:57 20:09 WBC 10.42 H RBC 2.84 L Hgb 8.5 L Hct 28.6 L MCV 100.7 H MCH 29.9 MCHC 29.7 L RDW Coeff of Devora 17.8 H Plt Count 195 Immature Gran % (Auto) 1.0 Neut % (Auto) 50.5 Lymph % (Auto) 10.4 [place] % (Auto) 9.2 Eos % (Auto) 28.2 H Baso % (Auto) 0.7 Neut # (Auto) 5.3 Lymph # (Auto) 1.1 [place] # (Auto) 1.0 Eos # (Auto) 2.9 H Baso # (Auto) 0.1 Immature Gran # (Auto) 0.1 Sodium 136.9 Potassium 3.57 Chloride 101.3 Carbon Dioxide 30.4 H Anion Gap 8.77 BUN 31.9 H Creatinine 1.67 H Estimated GFR (MDRD) 30.00 BUN/Creatinine Ratio 19.10 Glucose 78.9 Calcium 8.31 L Total Bilirubin 1.04 AST 18.3 ALT 6.9 Alkaline Phosphatase 55.8 Total Protein 6.00 L Albumin 2.87 L Globulin 3.13 Albumin/Globulin Ratio 0.91 S. pneumoniae Ag Intrp Positive H Discharge Instructions Discharge Planning: Discharge Planning > [address] Cindy Velasquez. Discharge Plan Discharge Discharge Orders: Discharge Patient (ONCE); Ordered 01/24/25 Ordered By: STEPHY ECHAVARRIA Activity Restrictions/Additional Instructions: transition to swingbed Patient Disposition: DISCH W/I HOSP TO SWING BD Prescriptions: No Action alprazolam 0.5 mg tablet 0.5 mg PO BID PRN (Reason: anxiety) Qty: 60 2RF montelukast 10 mg tablet 10 mg PO DAILY Qty: 90 1RF potassium chloride 20 mEq tablet extended release 20 meq PO DAILY Qty: 30 2RF digoxin 125 mcg (0.125 mg) tablet 125 mcg PO DAILY Qty: 90 1RF Jardiance 10 mg tablet 10 mg PO QDAY Qty: 30 2RF tramadol 50 mg tablet 50 mg PO BID PRN (Reason: pain) Qty: 60 1RF pantoprazole 40 mg tablet,delayed release (DR/EC) 40 mg PO DAILY Qty: 90 1RF warfarin [Jantoven] 6 mg tablet 6 mg PO DAILY Qty: 30 0RF furosemide 40 mg tablet 40 mg PO BIDAC2 metoprolol tartrate 25 mg Tablet 25 mg PO BID Qty: 1 0RF ferrous sulfate 324 mg (65 mg iron) Tablet,Delayed Release (Dr/Ec) 324 mg PO DAILY Qty: 30 0RF sertraline [Zoloft] 50 mg tablet 50 mg PO QDAY Qty: 30 1RF Spiriva Respimat 1.25 mcg/actuation mist 2 puff inhalation Q24H Did you review [place] [employer]IOR [employer] ARCHIT[employer] for ALL controlled substances?: Not Applicable Discussed opioids are addictive and Narcan is available by prescription or from pharmacy.: No Condition: Stable
== END 2025-01-24 13:08 | disposition swing bed (61) | DRG 193 ==
LOC: MEDSURG B 15:01 → ED 15:01 → MEDSURG B 19:51
PROVIDERS: ADMIT Hospitalist; ATTEND Physician Assistant

== ENCOUNTER 2025-01-29 10:40 | Inpatient (IN) ==
[2025-01-29] MEDS ORDERED: TYLENOL PO PRN (11:21)
[2025-01-29] MEDS ORDERED: ZOFRAN SDV IVP PRN (11:21)
[2025-01-29 11:58] VITALS: BMI 26.9
--- NOTE | 2025-01-29 11:59 | PCM ---
Date of Service Date Seen by Provider: 01/29/25 Time Seen by Provider: 08:45 Admit Day/Time Admission Date: 01/29/25 Admission Time: 11:21 Reason for Admission Chief Complaint: ACUTE BLOOD LOSS ANEMIA Hospital Provider Hospital Provider: STEPHY ECHAVARRIA PA-C[facility] Physician Primary Care Physician: ANNA CRANE APRN History of Present Illness History of Present Illness: 69 yo female with pmh of CHF, Afib, Anemia, Asthmatic Bronchitis, and colon mass presented to the ER for weakness. Per patient, she has fallen multiple times in the home due to profound weakness. States she gets up she is able to walk but has difficulties being able to push up out of the bed or chair and then becomes too weak to walk household distances. She went to see PCP yesterday and was unable to get out of the car. PCP then sent to ER for further evaluation. Found to have pneumonia and UTI. INR supratherapeutic at 8, BNP also elevated at 8400. She was given lasix, steroids, and cefepime. Admitted to med/surg. Today, she reports continued generalized weakness. No specific complaints. Does report inability to control her bladder. Denies any cough or sob. Lower extremity swelling but not as bad as they normally are. Later stated she has been nauseated after taking some of her medications at home so she hasn't been taking them. Patient states she is going to [facility] as of January 30 due to need for closer supervision. Patient was initially covered with Rocephin and doxycycline for CAP and UTI. Strep pneumo urine antigen came back positive. Urine culture came back ESBL positive E. coli. Also she has been dealing with some wounds on bilateral hips. Right wound was found to be draining and was swabbed. It was positive for ESBL E. coli as well and rothia kristinae. CT of right hip was negative for any acute findings otherwise. Patient's antibiotics were escalated to Invanz and vancomycin. She was also diuresed some but then became slightly hypotensive and Lasix was held. She has been on fluid restriction. Her INR was initially 8 and continue to trend up before normalizing. She did have to receive a dose of vitamin K. Patient is historically noncompliant with warfarin and INR checks. Will switch to Eliquis due to her noncompliance. She was also noted to be bradycardic. Her digoxin and metoprolol were held. She has continued to be on the low end of normal in regards to her heart rate. Overall she has improved but she has been very weak. Feel skilled therapy would benefit her prior to returning home. Will admit to swing bed. Patient initially did well and participated with therapy. She finished invanz on 01/26. On 01/27 patient started having delusions and hallucinations, however vitals and labs were stable. On 01/28 she was noted to have a dark stool, however she is on daily iron supplementation. In the evening she was noted to be tachycardic and complaining of dizziness. CBC showed hemoglobin trended down to 7.4. 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 She was given 1 unit of blood, held eliquis, increased protonix. Today hemoglobin has dropped mildly again and she is still symptomatic. Will admit inpatient today for further blood transfusion. [facility] Medical History Cardiac murmur due to mitral valve disorder I34.0 - Nonrheumatic mitral (valve) insufficiency (ICD-10) Asthmatic bronchitis Breo, singular J45.909 - Unspecified asthma, uncomplicated (ICD-10) Cataract right; DR SAUNDERS H26.9 - Unspecified cataract (ICD-10) GI bleed K92.2 - Gastrointestinal hemorrhage, unspecified (ICD-10) Family History Mother No problems noted. FATHER Cancer Mother Cancer Asthma MATERNAL GRANDMOTHER CVA (cerebral vascular accident) MATERNAL GRANDFATHER Cancer Social History Smoking and tobacco status: Former smoker Tobacco: How many years used: 2 How long ago did patient quit smoking: quit 1978 Alcohol intake: current Substance use type: does not use Special myke needs: No Agree to transfusion: Yes Adopted: No Caregiver/support person: No Foster care: No Household members: none Housing: house Marital status: D Lives independently: Yes Daycare: no daycare Number of children: 1 service: No MCFP: No Current occupational status: retired History of recent travel: No Do you think of yourself as: straight/heterosexual Current gender identity: female Seatbelt use: always Drives intoxicated or rides with intoxicated professional driver: No Current diet type/program: regular Water heater temperature set < 120 degrees: Yes Working smoke detector in home: Yes Fire extinguisher in home: Yes Carbon monoxide detector in home: Yes Allergies Allergies Allergy/AdvReac Type Severity Reaction Status Date / Time ampicillin Allergy Unknown Unknown Verified 01/17/25 17:30 erythromycin base Allergy Unknown Unknown Verified 01/17/25 17:30 pravastatin (From Pravachol) AdvReac Mild Other Verified 01/17/25 17:30 Current Medications Home Medications Acetaminophen (Acetaminophen 325 Mg Tablet) 650 mg PO Q4H PRN PRN Reason: Mild Pain Alprazolam (Alprazolam 0.5 Mg Tablet) 0.5 mg PO BID PRN PRN Reason: Anxiety Empagliflozin (Empagliflozin 10 Mg Tablet) 10 mg PO DAILY [facility] Ferrous Sulfate (Ferrous Sulfate 324 Mg Tablet.) 324 mg PO DAILY [facility] Montelukast Sodium (Montelukast Sodium 10 Mg Tablet) 10 mg PO DAILY [facility] Ondansetron HCl (Ondansetron Hcl/Pf 4 Mg/2 Ml Sdv) 4 mg IVP Q6H PRN PRN Reason: Nausea / Vomiting Pantoprazole Sodium (Pantoprazole Sodium 40 Mg Tablet.) 40 mg PO BIDAC2 [facility] Sertraline HCl (Sertraline Hcl 50 Mg Tablet) 50 mg PO DAILY@0600 [facility] Tiotropium [place] (Tiotropium [place] 18 Mcg Cap.W.Dev) 1 cap IH RTDAILY [facility] Last Admin: 01/29/25 12:07 Dose: 2 puff Tramadol HCl (Tramadol Hcl 50 Mg Tablet) 50 mg PO BID PRN PRN Reason: MODERATE PAIN tiotropium bromide 1.25 mcg/actuation mist for inhalation (Spiriva Respimat) 2 puff inhalation Q24H 04/24/22 [History Confirmed 01/29/25] furosemide 40 mg tablet 40 mg PO BIDAC2 10/14/24 [History Confirmed 01/29/25] Held on 01/29/25. Instructions: . ferrous sulfate 324 mg (65 mg iron) tablet,delayed release 324 mg PO DAILY #30 tabs 10/20/24 [Rx Confirmed 01/29/25] metoprolol tartrate 25 mg tablet 25 mg PO BID #1 tab 10/20/24 [Rx Confirmed 01/29/25] Held on 01/29/25. Instructions: . alprazolam 0.5 mg tablet 0.5 mg PO BID PRN anxiety #60 tabs 11/14/24 [Rx Co nfirmed 01/29/25] montelukast 10 mg tablet 10 mg PO DAILY #90 tabs 11/14/24 [Rx Confirmed 01/29/25] potassium chloride 20 mEq tablet,extended release 20 meq PO DAILY #30 tabs 11/14/24 [Rx Confirmed 01/29/25] empagliflozin 10 mg tablet (Jardiance) 10 mg PO QDAY #30 tabs 11/22/24 [Rx Confirmed 01/29/25] pantoprazole 40 mg tablet,delayed release 40 mg PO DAILY #90 tabs 12/12/24 [Rx Confirmed 01/29/25] tramadol 50 mg tablet 50 mg PO BID PRN pain #60 tabs 12/12/24 [Rx Confirmed 01/29/25] sertraline 50 mg tablet (Zoloft) 50 mg PO QDAY #30 tabs 01/03/25 [Rx Confirmed 01/29/25] Opioid Naive vs. Tolerant Does Patient Take Opioids?: Yes Is Patient Opioid Naive?: No What is Opioid Naive?: *Opioid Naive implies the patient is not already taking opioids or not chronically receiving opioids on a daily basis. *PRN dosing is not "usually" associated with tolerance. *Patients are at higher risk of over-sedation and aspiration. Is Patient Opioid Tolerant?: No What is Opioid Tolerant?: *Opioid Tolerance implies less than the expected response to an opioid. *Acquired tolerance is defined by the patient taking 60mg of oral morphine daily (or equianalgesic dose of another opioid) for 1 week or more. *Often associated with chronic pain. *May take more than usual dose to achieve desired pain control. Review of Systems Constitutional: Reports Fatigue and Weakness; Denies Fever or Chills Head: Reports Normocephalic and Atraumatic Cardiovascular: Reports Irregular Heartbeat and Heart Murmur; Denies Chest pain or Chest Pressure Respiratory: Denies Cough or Shortness of air Gastrointestinal: Reports Abdominal pain (RLQ pain); Denies Nausea, Vomiting, Diarrhea or Constipation Genitourinary: Denies Dysuria or Frequency Hematology: Reports Anemia Neurological: Reports Dizziness; Denies Headache or Syncope Physical examination Most Recent Vital Signs: Most Recent Vital Signs Temperature 97.0 F L 01/29/25 11:01 Temperature Source Temporal Artery Scan 01/29/25 11:01 Pulse Rate 118 H 01/29/25 11:01 Respiratory Rate 18 01/29/25 11:01 Blood Pressure Right Arm 127/58 01/29/25 11:01 Blood Pressure Position Supine 01/29/25 11:01 O2 Sat by Pulse Oximetry 98 01/29/25 11:01 Oxygen Delivery Method Room Air 01/29/25 11:01 Height 5 ft 4 in 01/29/25 11:01 Weight 71.2 kg 01/29/25 11:01 Telemetry Heart Rate 64 01/24/25 07:00 Appearance: Positive Well-nourished, No Apparent Distress, Alert and Oriented x3 and Ill-Appearing Skin: Positive Warm and Other (pallor) HEENT: Positive Normocephalic and Atraumatic Neck: Positive Supple Chest/Lungs: Positive Symmetrical With Equal Breath Sounds, Clear to Auscultation Bilaterally and Good Air Movement all 4 Lung Terry; Negative Rales, Rhonci or Wheezes Heart: Positive Murmur, Irregular Rhythm and Tachycardia GI/: Positive Soft, Bowel Sounds Normal and No Distention; Negative Nontender (RLQ tenderness) Musculoskeletal: Positive Not Examined Extremities: Negative Edema Neurological: Positive Sensation Intact, Motor intact, Cranial Nerves Intact, Alert and Oriented Psychiatric: Positive Oriented x4, Appropriate Mood and Appropriate Affect Additional Findings: As of this morning patient seems less confused but still not to her baseline. No hallucinations today Review Statement Review Statement: I have independently reviewed and interpreted the labs/EKGs/imaging that were ordered by the ER provider. I have reviewed all outside records that are available currently in our EMR including imaging/notes/labs from previous visits. Plan Plan: 1. Acute blood loss anemia - Received 1 unit PRBCs yesterday, will receive 2 units today. Continue iron supplement. Hold eliquis. Increase protonix to bid. 2. CAP due to strep pneumo - nebs prn, has finished antibiotics 3. UTI due to ESBL+ e coli - has finished antibiotics 4. R hip wound infection due to ESBL+ e coli and rothia kristinae - has finished antibiotics, cleanse daily with soap and water, apply silvercel alginate daily. 5. Acute Diastolic Heart Failure with Several Mitral Regurgitation Exacerbation - Resolved, EF normal 10/24, supposed to follow with cards outpatient for repeat echo, I&O, daily weight, 1800 fluid restriction, holding lasix for now 6. Supratherapeutic INR - Resolved, received vitamin K x1, held coumadin, no s/sx of active bleeding, transitioned to eliquis due to noncompliance 8. Rectosigmoid polyp - does not wish for intervention 9. Afib - digoxin and metoprolol initially held due to bradycardia. May restart metoprolol if patient remains tachycardic after blood transfusion. Holding eliquis due to GI bleed 10. Hallucinations - Multifactorial, seems improved today. Will continue to monitor. Low dose seroquel started at night. DVT Prophylaxis: Ambulation, holding eliquis Time Spent: Greater than 80 minutes spent with patient, 50% of the time spent with this patient was devoted to counseling and coordination of care. [facility] minutes spent discussing advance care planning. Admit to: inpatient Discussed Plan of Care with Dr. Ting Velasquez Medications Medication Orders: Medications Ordered Category Date Time Status Acetaminophen [Tylenol] Meds 01/29/25 11:21 Ordered 650 mg PO Q4H PRN Alprazolam [Xanax] Meds 01/29/25 11:26 Ordered 0.5 mg PO BID PRN ANX Anxiety Empaglifozin [Jardiance] Meds 01/30/25 09:00 Ordered 10 mg PO QDAY Ferrous Sulfate Meds 01/30/25 09:00 Ordered 324 mg PO DAILY Montelukast Sodium [Singulair] Meds 01/30/25 09:00 Ordered 10 mg PO DAILY Ondansetron HCl/Pf [Zofran Sdv] Meds 01/29/25 11:21 Ordered 4 mg IVP Q6H PRN Pantoprazole Sodium [Protonix] Meds 01/29/25 17:00 Ordered 40 mg PO BIDAC2 Sertraline HCl [Zoloft] Meds 01/30/25 06:00 Ordered 50 mg PO QDAY Tramadol HCl [Ultram] Meds 01/29/25 11:26 Ordered 50 mg PO BID PRN MODPAIN MODERATE PAIN tiotropium bromide [Spiriva Respimat] Meds 01/29/25 11:30 Ordered 2 puff IH Q24H
[2025-01-29] MEDS: SPIRIVA IH SCH (12:07)
[2025-01-29] MEDS: PROTONIX PO SCH (16:39)
[2025-01-30 05:29] LABS: IMMATURE GRANULOCYTE # (AUTO) 0.0 (0.0-1.0); IMMATURE GRANULOCYTE % (AUTO) 0.4 % (0.0-5.0); RDW COEFFICIENT OF VARIATION 16.6 % (11.6-14.8)
[2025-01-30] MEDS: ZOLOFT PO SCH (05:31)
[2025-01-30 05:45] LABS: CREATININE 1.98 mg/dL (0.60-1.30)
[2025-01-30] MEDS: SINGULAIR PO SCH (08:30)
[2025-01-30] MEDS: FERROUS SULFATE PO SCH (08:30)
[2025-01-30] MEDS: JARDIANCE PO SCH (08:30)
--- NOTE | 2025-01-30 10:56 | PCM.PROG ---
Date/Time Seen Date Seen by Provider: 01/30/25 Time Seen by Provider: 08:45 Provider Provider[facility] SAUL VALLEJO, [facility] Chief Complaint Chief Complaint: ACUTE BLOOD LOSS ANEMIA Subjective Subjective: Continues to make statements that don't make sense. Hallucinating that people have been present in hospital and are not. Reports she thought she was coming here to . Objective Appearance: Positive No Apparent Distress, Alert and Oriented x3 and Ill- Appearing Chest/Lungs: Positive Symmetrical With Equal Breath Sounds, Clear to Auscultation Bilaterally and Good Air Movement all 4 Lung Terry; Negative Rales, Rhonci or Wheezes Heart: Positive Pulses Normal and Murmur GI/: Positive Soft, Nontender, Bowel Sounds Normal and No Distention Musculoskeletal: Positive Not Examined Neurological: Positive Sensation Intact, Motor intact, Reflexes Intact, Alert and Oriented Vital Signs Vital Signs: Vital Signs: Last 24 Hours 01/29/25 11:01 01/29/25 11:01 01/29/25 13:00 Temperature 97.0 F L Temperature Source Temporal Artery Scan Pulse Rate 118 H Respiratory Rate 18 18 Blood Pressure Blood Pressure Mean Blood Pressure Right Arm 127/58 Blood Pressure Location Blood Pressure Position Supine O2 Sat by Pulse Oximetry 98 Oxygen Delivery Method Room Air Room Air Oxygen Flow Rate Height 5 ft 4 in Weight 71.2 kg Telemetry Type Remote Telemetry Telemetry Monitoring Started Irregular Telemetry Rate (Approximate) 120-130 BPM Telemetry Heart Rate 127 H Telemetry SPO2 EKG QRS Interval 0.06 Telemetry Strip Reading AFIB 01/29/25 14:00 01/29/25 16:51 01/29/25 18:00 Temperature 97.6 F 96.8 F L Temperature Source Temporal Artery Scan Temporal Artery Scan Pulse Rate 117 H 112 H Respiratory Rate 18 20 Blood Pressure 122/72 104/68 Blood Pressure Mean 88 80 Blood Pressure Right Arm Blood Pressure Location Right Arm Right Arm Blood Pressure Position Supine Supine O2 Sat by Pulse Oximetry 93 L 98 Oxygen Delivery Method Room Air Nasal Cannula Room Air Oxygen Flow Rate 2 Height Weight Telemetry Type Telemetry Monitoring Irregular Telemetry Rate (Approximate) Telemetry Heart Rate Telemetry SPO2 EKG QRS Interval Telemetry Strip Reading 01/29/25 19:00 01/29/25 19:42 01/29/25 20:00 Temperature Temperature Source Pulse Rate Respiratory Rate 20 Blood Pressure Blood Pressure Mean Blood Pressure Right Arm Blood Pressure Location Blood Pressure Position O2 Sat by Pulse Oximetry Oxygen Delivery Method Room Air Room Air Oxygen Flow Rate Height Weight Telemetry Type Remote Telemetry Telemetry Monitoring Continues Irregular Telemetry Rate (Approximate) 110-120 BPM Telemetry Heart Rate 115 H Telemetry SPO2 97 EKG QRS Interval 0.06 Telemetry Strip Reading AFIB 01/29/25 21:57 01/30/25 01:00 01/30/25 01:28 Temperature 96.9 F L 97.0 F L Temperature Source Tympanic Oral Pulse Rate 91 100 Respiratory Rate 20 18 Blood Pressure 110/65 97/68 Blood Pressure Mean 80 77 Blood Pressure Right Arm Blood Pressure Location Right Arm Right Arm Blood Pressure Position Supine Supine O2 Sat by Pulse Oximetry 100 94 L Oxygen Delivery Method Room Air Room Air Oxygen Flow Rate Height Weight Telemetry Type Remote Telemetry Telemetry Monitoring Continues Irregular Telemetry Rate (Approximate) 90-100 BPM Telemetry Heart Rate 89 Telemetry SPO2 94 EKG QRS Interval 0.06 Telemetry Strip Reading AFIB 01/30/25 05:26 01/30/25 05:46 01/30/25 10:00 Temperature 96.4 F L Temperature Source Temporal Artery Scan Pulse Rate 102 H Respiratory Rate 20 Blood Pressure 104/78 Blood Pressure Mean 86 Blood Pressure Right Arm Blood Pressure Location Right Arm Blood Pressure Position Supine O2 Sat by Pulse Oximetry 98 97 Oxygen Delivery Method Room Air Room Air Room Air Oxygen Flow Rate Height Weight Telemetry Type Telemetry Monitoring Irregular Telemetry Rate (Approximate) Telemetry Heart Rate Telemetry SPO2 EKG QRS Interval Telemetry Strip Reading Lab Results Lab Results: Lab Results: Last 24 Hours 01/30/25 01/29/25 01/28/25 04:56 18:28 21:37 WBC 9.16 RBC 2.55 L Hgb 7.9 L 8.6 L Hct 25.3 L 27.7 L MCV 99.2 H MCH 31.0 MCHC 31.2 L RDW Coeff of Devora 16.6 H Plt Count 144 Immature Gran % (Auto) 0.4 Neut % (Auto) 60.3 Lymph % (Auto) 8.2 L [place] % (Auto) 6.6 Eos % (Auto) 23.6 H Baso % (Auto) 0.9 Neut # (Auto) 5.5 Lymph # (Auto) 0.8 [place] # (Auto) 0.6 Eos # (Auto) 2.2 H Baso # (Auto) 0.1 Immature Gran # (Auto) 0.0 Sodium 140.5 Potassium 3.93 Chloride 106.0 Carbon Dioxide 29.9 Anion Gap 8.53 BUN 57.4 H Creatinine 1.98 H Estimated GFR (MDRD) 25.00 BUN/Creatinine Ratio 28.98 Glucose 84.6 Calcium 8.44 Total Bilirubin 1.04 AST 16.8 ALT 8.0 Alkaline Phosphatase 54.5 Total Protein 5.43 L Albumin 2.55 L Globulin 2.88 Albumin/Globulin Ratio 0.88 Blood Type A POSITIVE Antibody Screen Negative Crossmatch (AHG) See Detail Additional Comments Additional Comments: I have independently reviewed and interpreted the labs/EKGs/imaging ordered during this hospital stay. I have reviewed outside records that are available in our EMR that pertain to medical stay including imaging/notes/labs from previous visits. Active Medications Active Medications: Medications Generic Name Dose Route Start Last Admin Trade Name Freq PRN Reason Stop Dose Admin Acetaminophen 650 mg 01/29/25 11:21 Acetaminophen 325 Mg Tablet PO Q4H PRN Mild Pain Alprazolam 0.5 mg 01/29/25 11:26 Alprazolam 0.5 Mg Tablet PO BID PRN Anxiety Empagliflozin 10 mg 01/30/25 09:00 01/30/25 08:30 Empagliflozin 10 Mg Tablet PO 10 mg DAILY GILBERT Administration Ferrous Sulfate 324 mg 01/30/25 09:00 01/30/25 08:30 Ferrous Sulfate 324 Mg Tablet. PO 324 mg DAILY GILBERT Administration Montelukast Sodium 10 mg 01/30/25 09:00 01/30/25 08:30 Montelukast Sodium 10 Mg Tablet PO 10 mg DAILY GIL[facility]ERT Administration Ondansetron HCl 4 mg 01/29/25 11:21 Ondansetron Hcl/Pf 4 Mg/2 Ml Sdv IVP Q6H PRN Nausea / Vomiting Pantoprazole Sodium 40 mg 01/29/25 17:00 01/30/25 05:31 Pantoprazole Sodium 40 Mg Tablet. PO 40 mg BIDAC2 [facility]IL[facility]ERT Administration Sertraline HCl 50 mg 01/30/25 06:00 01/30/25 05:31 Sertraline Hcl 50 Mg Tablet PO 50 mg DAILY@0600 GIL[facility]ERT Administration Tiotropium [place] 1 cap 01/29/25 12:30 01/30/25 05:31 Tiotropium [place] 18 Mcg Cap.W.Dev IH 1 cap RTDAILY [facility]ERT Administration Tramadol HCl 50 mg 01/29/25 11:26 Tramadol Hcl 50 Mg Tablet PO BID PRN MODERATE PAIN Plan Plan: 1. Acute blood loss anemia - Received 1 unit PRBCs Thursday. 2units PRBCs yesterday. Hgb continues to drop despite transfusions. Continue iron supplement. Hold eliquis. Increase protonix to bid. 2. CAP due to strep pneumo - nebs prn, completed course of abx 3. UTI due to ESBL+ e coli - completed course of abx 4. R hip wound infection due to ESBL+ e coli and rothia kristinae - completed course of abx, cleanse daily with soap and water, apply silvercel alginate daily. 5. Acute Diastolic Heart Failure with Several Mitral Regurgitation Exacerbation - Resolved, EF normal 10/24, supposed to follow with cards outpatient for repeat echo, I&O, daily weight, 1800 fluid restriction, holding lasix for now 6. Supratherapeutic INR - Resolved, received vitamin K x1, held coumadin, no s/sx of active bleeding, transitioned to eliquis due to noncompliance 7. 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 Afib - digoxin and metoprolol initially held due to bradycardia. Holding eliquis due to GI bleed 9. Hallucinations - Multifactorial, unchanged. Will continue to monitor. Low dose seroquel started at night. repeat UA ordered DVT Prophylaxis: Ambulation, holding eliquis Dispo: Discussed goals of care with CONSUELO Arroyo. Understands that patient does not wish intervention for further GI intervention and unable to due to cardiac status. Continues to lose blood likely due to GI polyp. Plans to discuss hospice with family and will let us know as soon as possible if this is plan. Review Statement Review Statement: I have personally discussed and reviewed the patient's visit/currently labs/imaging/decision making with Dr. Velasquez, my supervising attending. Greater that 50 minutes spent with patient, 50% of the time spent with this patient was devoted to counseling and coordination of care.
[2025-01-30 14:37] LABS: GLUCOSE, URINE (UA) Trace (NEGATIVE); LEUKOCYTE ESTERASE ,URINE 1+ (NEGATIVE); URINE, BLOOD 2+ (NEGATIVE)
[2025-01-30] MEDS: XANAX PO PRN (20:38)
[2025-01-30] MEDS: ULTRAM PO PRN (20:39)
[2025-01-31] MEDS: NYSTOP POWDER TP SCH (02:01)
[2025-01-31 05:34] LABS: IMMATURE GRANULOCYTE # (AUTO) 0.0 (0.0-1.0); IMMATURE GRANULOCYTE % (AUTO) 0.4 % (0.0-5.0); RDW COEFFICIENT OF VARIATION 16.5 % (11.6-14.8)
[2025-01-31 05:49] LABS: CREATININE 1.91 mg/dL (0.60-1.30)
--- NOTE | 2025-01-31 09:40 | PCM.PROG ---
Date/Time Seen Date Seen by Provider: 01/31/25 Time Seen by Provider: 08:30 Provider Provider: SAUL VALLEJO, [facility] Chief Complaint Chief Complaint: ACUTE BLOOD LOSS ANEMIA Subjective Subjective: Slept ok last night. Hoping to get up to get a shower today. Objective Appearance: Positive No Apparent Distress, Alert and Oriented x3, Ill-Appearing and Other (pale) Chest/Lungs: Positive Symmetrical With Equal Breath Sounds, Clear to Auscultation Bilaterally and Good Air Movement all 4 Lung Terry; Negative Rales, Rhonci or Wheezes Heart: Positive Pulses Normal and Murmur GI/: Positive Soft, Nontender, Bowel Sounds Normal and No Distention Musculoskeletal: Positive Not Examined Neurological: Positive Sensation Intact, Motor intact, Reflexes Intact, Alert, Oriented, Disorinted (unable to carry on meaningful conversation at times) and Other (generalized weakness) Vital Signs Vital Signs: Vital Signs: Last 24 Hours 01/30/25 10:00 01/30/25 10:00 01/30/25 10:51 Temperature 97.4 F L Temperature Source Temporal Artery Scan Pulse Rate 74 Respiratory Rate 18 Blood Pressure 107/73 Blood Pressure Mean 84 Blood Pressure Location Right Arm Blood Pressure Position O2 Sat by Pulse Oximetry 97 100 Oxygen Delivery Method Room Air Room Air Height 5 ft 4 in Weight 71.2 kg Telemetry Type Telemetry Monitoring Irregular Telemetry Rate (Approximate) Telemetry Heart Rate Telemetry SPO2 EKG QRS Interval Telemetry Strip Reading 01/30/25 13:00 01/30/25 14:00 01/30/25 14:00 Temperature 96.7 F L Temperature Source Temporal Artery Scan Pulse Rate 97 Respiratory Rate 14 Blood Pressure 106/59 L Blood Pressure Mean 74 Blood Pressure Location Right Arm Blood Pressure Position O2 Sat by Pulse Oximetry 95 96 Oxygen Delivery Method Room Air Room Air Height Weight Telemetry Type Remote Telemetry Telemetry Monitoring Continues Irregular Telemetry Rate (Approximate) Telemetry Heart Rate 102 H Telemetry SPO2 95 EKG QRS Interval 0.09 Telemetry Strip Reading A-fib with tachycardia ( Rate <120) 01/30/25 18:00 01/30/25 19:00 01/30/25 19:35 Temperature 96.8 F L Temperature Source Temporal Artery Scan Pulse Rate 99 Respiratory Rate 16 20 Blood Pressure 93/64 Blood Pressure Mean 73 Blood Pressure Location Right Arm Blood Pressure Position O2 Sat by Pulse Oximetry 99 Oxygen Delivery Method Room Air Room Air Height Weight Telemetry Type Remote Telemetry Telemetry Monitoring Continues Irregular Telemetry Rate (Approximate) 80-90 BPM Telemetry Heart Rate Telemetry SPO2 97 EKG QRS Interval 0.06 Telemetry Strip Reading A-FIB 01/30/25 20:00 01/30/25 21:53 01/31/25 01:00 Temperature 97.5 F L Temperature Source Oral Pulse Rate 101 H Respiratory Rate 16 Blood Pressure 109/75 Blood Pressure Mean 86 Blood Pressure Location Right Arm Blood Pressure Position Supine O2 Sat by Pulse Oximetry 99 95 Oxygen Delivery Method Room Air Room Air Height Weight Telemetry Type Remote Telemetry Telemetry Monitoring Continues Irregular Telemetry Rate (Approximate) 80-90 BPM Telemetry Heart Rate Telemetry SPO2 96 EKG QRS Interval 0.09 Telemetry Strip Reading A-FIB 01/31/25 02:00 01/31/25 05:34 01/31/25 05:44 Temperature 96.8 F L 96.5 F L Temperature Source Tympanic Tympanic Pulse Rate 98 93 Respiratory Rate 20 16 Blood Pressure 97/61 101/61 Blood Pressure Mean 73 74 Blood Pressure Location Right Arm Right Arm Blood Pressure Position Supine Supine O2 Sat by Pulse Oximetry 99 97 Oxygen Delivery Method Room Air Room Air Room Air Height Weight Telemetry Type Telemetry Monitoring Irregular Telemetry Rate (Approximate) Telemetry Heart Rate Telemetry SPO2 EKG QRS Interval Telemetry Strip Reading 01/31/25 07:00 Temperature Temperature Source Pulse Rate Respiratory Rate Blood Pressure Blood Pressure Mean Blood Pressure Location Blood Pressure Position O2 Sat by Pulse Oximetry Oxygen Delivery Method Height Weight Telemetry Type Remote Telemetry Telemetry Monitoring Continues Irregular Telemetry Rate (Approximate) 80-90 BPM Telemetry Heart Rate 87 Telemetry SPO2 90 L EKG QRS Interval 0.06 Telemetry Strip Reading A fib Lab Results Lab Results: Lab Results: Last 24 Hours 01/31/25 01/30/25 05:25 13:40 WBC 6.97 RBC 2.33 L Hgb 7.2 L Hct 24.0 L MCV 103.0 H MCH 30.9 MCHC 30.0 L RDW Coeff of Devora 16.5 H Plt Count 140 Immature Gran % (Auto) 0.4 Neut % (Auto) 52.4 Lymph % (Auto) 11.9 [place] % (Auto) 7.3 Eos % (Auto) 27.0 H Baso % (Auto) 1.0 Neut # (Auto) 3.7 Lymph # (Auto) 0.8 [place] # (Auto) 0.5 Eos # (Auto) 1.9 H Baso # (Auto) 0.1 Immature Gran # (Auto) 0.0 Sodium 139.1 Potassium 3.45 L Chloride 104.9 Carbon Dioxide 30.6 H Anion Gap 7.05 BUN 54.9 H Creatinine 1.91 H Estimated GFR (MDRD) 26.00 BUN/Creatinine Ratio 28.74 Glucose 76.9 Calcium 8.76 Total Bilirubin 0.86 AST 16.7 ALT 7.0 Alkaline Phosphatase 51.5 L Total Protein 5.45 L Albumin 2.63 L Globulin 2.82 Albumin/Globulin Ratio 0.93 Urine Color Yellow Urine Clarity Clear Urine pH 5.5 Ur Specific Rawson 1.020 Urine Protein Trace H Urine Glucose (UA) Trace H Urine Ketones Negative Urine Blood 2+ H Urine Nitrite Negative Urine Bilirubin Negative Urine Urobilinogen 0.2 Ur Leukocyte Esterase 1+ H Urine Microscopic RBC 5-10 Urine Microscopic WBC 10-20 Ur Squamous Epith Cells 5-10 Urine Bacteria 2+ Additional Comments Additional Comments: I have independently reviewed and interpreted the labs/EKGs/imaging ordered during this hospital stay. I have reviewed outside records that are available in our EMR that pertain to medical stay including imaging/notes/labs from previous visits. Active Medications Active Medications: Medications Generic Name Dose Route Start Last Admin Trade Name Freq PRN Reason Stop Dose Admin Acetaminophen 650 mg 01/29/25 11:21 Acetaminophen 325 Mg Tablet PO Q4H PRN Mild Pain Alprazolam 0.5 mg 01/29/25 11:26 01/30/25 20:38 Alprazolam 0.5 Mg Tablet PO 0.5 mg BID PRN Administration Anxiety Empagliflozin 10 mg 01/30/25 09:00 01/31/25 08:16 Empagliflozin 10 Mg Tablet PO 10 mg DAILY GILBERT Administration Ferrous Sulfate 324 mg 01/30/25 09:00 01/31/25 08:16 Ferrous Sulfate 324 Mg Tablet. PO 324 mg DAILY GILBERT Administration Montelukast Sodium 10 mg 01/30/25 09:00 01/31/25 08:15 Montelukast Sodium 10 Mg Tablet PO 10 mg DAILY GILBERT Administration Nystatin 1 applic 01/31/25 00:30 01/31/25 08:16 Nystatin 15 Gm Powder TP 1 applic TID GILBERT Administration Ondansetron HCl 4 mg 01/29/25 11:21 Ondansetron Hcl/Pf 4 Mg/2 Ml Sdv IVP Q6H PRN Nausea / Vomiting Pantoprazole Sodium 40 mg 01/29/25 17:00 01/31/25 05:14 Pantoprazole Sodium 40 Mg Tablet.Dr PO 40 mg BIDAC2 GILBERT Administration Sertraline HCl 50 mg 01/30/25 06:00 01/31/25 05:14 Sertraline Hcl 50 Mg Tablet PO 50 mg DAILY@0600 GILBERT Administration Sodium Chloride 1 syr 01/30/25 21:00 01/31/25 05:14 0.9% Sodium Chloride 10 Ml Disp.Syrin IVF 1 syr Q8HR GILBERT Administration Tiotropium [place] 1 cap 01/29/25 12:30 01/31/25 05:14 Tiotropium [place] 18 Mcg Cap.W.Dev IH 1 cap RTDAILY GILBERT Administration Tramadol HCl 50 mg 01/29/25 11:26 01/30/25 20:39 Tramadol Hcl 50 Mg Tablet PO 50 mg BID PRN Administration MODERATE PAIN Plan Plan: 1. Acute blood loss anemia - Received 1 unit PRBCs Thursday. 2units PRBCs yesterday. Hgb continues to drop despite transfusions. Continue iron supplement. Hold eliquis. Increase protonix to bid. 2. CAP due to strep pneumo - nebs prn, completed course of abx 3. UTI due to ESBL+ e coli - completed course of abx 4. R hip wound infection due to ESBL+ e coli and rothia kristinae - completed course of abx, cleanse daily with soap and water, apply silvercel alginate daily. 5. Acute Diastolic Heart Failure with Several Mitral Regurgitation Exacerbation - Resolved, EF normal 10/24, supposed to follow with cards outpatient for repeat echo, I&O, daily weight, 1800 fluid restriction, holding lasix for now 6. Supratherapeutic INR - Resolved, received vitamin K x1, held coumadin, no s/sx of active bleeding, transitioned to eliquis due to noncompliance 7. 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 Afib - digoxin and metoprolol initially held due to bradycardia. Holding eliquis due to GI bleed 9. Hallucinations - Multifactorial, unchanged. Will continue to monitor. Low dose seroquel started at night. repeat UA negative for growth. DVT Prophylaxis: Ambulation, holding eliquis Dispo: Agreeable to hospice as of yesterday. Referral sent. Awaiting formal acceptance. Review Statement Review Statement: I have personally discussed and reviewed the patient's visit/currently labs/imaging/decision making with Dr. Velasquez, my supervising attending. Greater that 50 minutes spent with patient, 50% of the time spent with this patient was devoted to counseling and coordination of care.
[2025-01-31] MEDS: NYSTATIN CREAM TP SCH (20:51)
[2025-02-01 08:59] VITALS: RESP 18
--- NOTE | 2025-02-01 09:00 | DCSUM ---
Admission Date Admission Date: 01/29/25 Discharge Date Discharge Date: 02/01/25 Admission Diagnosis Admission Diagnosis: 1. Acute blood loss anemia Discharge Diagnosis Discharge Diagnosis: 1. Acute blood loss anemia - Received 1 unit PRBCs Thursday. 2units PRBCs Thursday. Hgb continues to drop despite transfusions. Continue iron supplement. Hold eliquis. Increase protonix to bid. 2. CAP due to strep pneumo - completed course of abx 3. UTI due to ESBL+ e coli - completed course of abx 4. R hip wound infection due to ESBL+ e coli and rothia kristinae - Improving 5. Acute Diastolic Heart Failure with Several Mitral Regurgitation Exacerbation - Resolved 6. Supratherapeutic INR - Resolved 7. Rectosigmoid polyp 8. Afib 9. Hallucinations Hospital Provider Hospital [facility] VAL[facility] Physician Primary Care Physician: ANNA CRANE APRN Summary of History and Physical Summary of History and Physical: 69 yo female with pmh of CHF, Afib, Anemia, Asthmatic Bronchitis, and colon mass presented to the ER for weakness. Per patient, she has fallen multiple times in the home due to profound weakness. States she gets up she is able to walk but has difficulties being able to push up out of the bed or chair and then becomes too weak to walk household distances. She went to see PCP yesterday and was unable to get out of the car. PCP then sent to ER for further evaluation. Found to have pneumonia and UTI. INR supratherapeutic at 8, BNP also elevated at 8400. She was given lasix, steroids, and cefepime. Admitted to med/surg. Today, she reports continued generalized weakness. No specific complaints. Does report inability to control her bladder. Denies any cough or sob. Lower ex tremity swelling but not as bad as they normally are. Later stated she has been nauseated after taking some of her medications at home so she hasn't been taking them. Patient states she is going to [facility] as of January 30 due to need for closer supervision. Patient was initially covered with Rocephin and doxycycline for CAP and UTI. Strep pneumo urine antigen came back positive. Urine culture came back ESBL positive E. coli. Also she has been dealing with some wounds on bilateral hips. Right wound was found to be draining and was swabbed. It was positive for ESBL E. coli as well and rothia kristinae. CT of right hip was negative for any acute findings otherwise. Patient's antibiotics were escalated to Invanz and vancomycin. She was also diuresed some but then became slightly hypotensive and Lasix was held. She has been on fluid restriction. Her INR was initially 8 and continue to trend up before normalizing. She did have to receive a dose of vitamin K. Patient is historically noncompliant with warfarin and INR checks. Will switch to Eliquis due to her noncompliance. She was also noted to be bradycardic. Her digoxin and metoprolol were held. She has continued to be on the low end of normal in regards to her heart rate. Overall she has improved but she has been very weak. Feel skilled therapy would benefit her prior to returning home. Will admit to swing bed. Patient initially did well and participated with therapy. She finished invanz on 01/26. On 01/27 patient started having delusions and hallucinations, however vitals and labs were stable. On 01/28 she was noted to have a dark stool, however she is on daily iron supplementation. In the evening she was noted to be tachycardic and complaining of dizziness. CBC showed hemoglobin trended down to 7.4. 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 She was given 1 unit of blood, held eliquis, increased protonix. Today hemoglobin has dropped mildly again and she is still symptomatic. Will admit inpatient today for further blood transfusion. Hospital Course Subjective: Received a total of 3 units of blood. Despite transfusions, hemoglobin continues to drop due to active bleeding likely related to mass in colon. Similar situation occurred approximately 6 months ago. Patient is nauseated occasionally and has no appetite. Due to vascular disease, she is not an appropriate candidate to undergo anesthesia for further GI investigation of rectosigmoid mass. Patient and family elected for hospice as of Thursday afternoon. Patient discharging home with [facility] to assume care starting tomorrow. Rx sent for tramadol, xanax, nystatin, and zofran. Appearance: Pleasant, No Apparent Distress, Alert and Ill-appearing HEENT: MMM, Supple and No JVD CVS: No Rubs Abdomen: Soft, Non-Tender and No Distention Respiratory: No Dyspnea Extremities: Other (trace edema to ble) Additional Findings: wounds to bilateral hips, covered with dressings due to serous drainage. Vital Signs: Most Recent Vital Signs Temperature 96.4 F L 02/01/25 05:26 Temperature Source Temporal Artery Scan 02/01/25 05:26 Pulse Rate 96 02/01/25 05:26 Respiratory Rate 18 02/01/25 08:00 Blood Pressure 90/65 02/01/25 05:26 Blood Pressure Mean 73 02/01/25 05:26 Blood Pressure Right Arm 127/58 01/29/25 11:01 Blood Pressure Location Right Arm 02/01/25 05:26 Blood Pressure Position Supine 02/01/25 05:26 O2 Sat by Pulse Oximetry 93 L 02/01/25 05:47 Oxygen Delivery Method Room Air 02/01/25 08:00 Oxygen Flow Rate 2 01/29/25 16:51 Height 5 ft 4 in 01/30/25 10:51 Weight 71.2 kg 01/30/25 10:51 Telemetry Type Remote Telemetry 02/01/25 07:00 Telemetry Monitoring Continues 02/01/25 07:00 Irregular Telemetry Rate (Approximate) 70-80 BPM 02/01/25 01:00 Telemetry Heart Rate 88 02/01/25 07:00 Telemetry SPO2 95 02/01/25 01:00 EKG QRS Interval 0.06 02/01/25 07:00 Telemetry Strip Reading Afib 02/01/25 07:00 Lab Results Last 24 Hours: 01/28/25 01/28/25 21:37 20:15 Blood Type A POSITIVE Cancelled Antibody Screen Negative Cancelled Crossmatch (AHG) See Detail See Detail Discharge Instructions Discharge Planning: Discharge Planning > 40 minutes If patient is discharged with left ventricular systolic dysfunction: na Discharged with a beta tatyana? [] If no, why not? [] Discharged with an kermit/arb? [] If no, why not? [] Discharge Medications: Medications at Discharge (Home Meds & RX) tiotropium bromide 1.25 mcg/actuation mist for inhalation (Spiriva Respimat) 2 puff inhalation Q24H 04/24/22 ferrous sulfate 324 mg (65 mg iron) tablet,delayed release 324 mg PO DAILY #30 tabs 10/20/24 montelukast 10 mg tablet 10 mg PO DAILY #90 tabs 11/14/24 empagliflozin 10 mg tablet (Jardiance) 10 mg PO QDAY #30 tabs 11/22/24 pantoprazole 40 mg tablet,delayed release 40 mg PO DAILY #90 tabs 12/12/24 sertraline 50 mg tablet (Zoloft) 50 mg PO QDAY #30 tabs 01/03/25 alprazolam 0.5 mg tablet 0.5 mg PO QID #60 tabs 02/01/25 nystatin 100,000 unit/gram topical cream 1 applic topical BID #15 grams 02/01/25 nystatin 100,000 unit/gram topical powder (Nystop) 1 applic topical TID PRN yeast infection #30 grams 02/01/25 ondansetron 4 mg disintegrating tablet 4 mg PO Q6H PRN nausea and vomiting #30 t abs 02/01/25 tramadol 50 mg tablet 50 mg PO Q4H PRN pain #60 tabs 02/01/25 Discharge Plan Discharge Discharge Orders: Discharge Patient (ONCE); Ordered 02/01/25 Ordered By: CHALO MCDANIEL Activity Restrictions/Additional Instructions: [facility] TO ASSUME CARE TOMORROW. DIET TOLERATED ACTIVITY TOLERATED MEDICATIONS: [place] DRUGS 2 * XANAX - ANXIOUSNESS * TRAMADOL - PAIN * NYSTATIN POWDER AND CREAM - CREAM FOR UNDER BREASTS, POWDER FOR SKIN FOLDS * ZOFRAN - FOR NAUSEA Instructions: Hospice Care (GEN) Patient Disposition: HOME WITH FAMILY CARE Prescriptions: New nystatin 100,000 unit/gram Cream 1 applic topical BID Qty: 15 0RF nystatin [Nystop] 100,000 unit/gram Powder 1 applic topical TID PRN (Reason: yeast infection) Qty: 30 0RF Rx Instructions: apply to skin folds ondansetron 4 mg tablet,disintegrating 4 mg PO Q6H PRN (Reason: nausea and vomiting) Qty: 30 0RF Continued montelukast 10 mg tablet 10 mg PO DAILY Qty: 90 1RF Jardiance 10 mg tablet 10 mg PO QDAY Qty: 30 2RF pantoprazole 40 mg tablet,delayed release (DR/EC) 40 mg PO DAILY Qty: 90 1RF ferrous sulfate 324 mg (65 mg iron) Tablet,Delayed Release (Dr/Ec) 324 mg PO DAILY Qty: 30 0RF sertraline [Zoloft] 50 mg tablet 50 mg PO QDAY Qty: 30 1RF Spiriva Respimat 1.25 mcg/actuation mist 2 puff inhalation Q24H Changed tramadol 50 mg tablet 50 mg PO Q4H PRN (Reason: pain) Qty: 60 1RF alprazolam 0.5 mg tablet 0.5 mg PO QID Qty: 60 2RF Discontinued potassium chloride 20 mEq tablet extended release 20 meq PO DAILY Qty: 30 2RF furosemide 40 mg tablet 40 mg PO BIDAC2 metoprolol tartrate 25 mg Tablet 25 mg PO BID Qty: 1 0RF Did you review [place] [employer] for ALL controlled substances?: No Discussed opioids are addictive and Narcan is available by prescription or from pharmacy.: No Condition: Fair
[2025-02-01 10:18] VITALS: BP 95/63; PULSE 112; TEMP 97.2
[2025-02-01] MEDS: CALMOSEPTINE OINTMENT TP PRN (12:52)
== END 2025-02-01 13:10 | disposition home or self-care (01) | DRG 811 ==
LOC: MEDSURG B 10:40
PROVIDERS: ADMIT Hospitalist; ATTEND Nurse Practitioner Family